=== PATIENT | male | born 1935 | race Caucasian/White ===

== ENCOUNTER 2018-09-26 15:42 | Inpatient (IN) | payer BC, MEDICARE ==
[~2018-09-26] VITALS: Ht 170.2 cm; Wt 54.9 kg
[2018-09-26] VITALS (7 sets, daily range): BP systolic 92–170; BP diastolic 62–80
[2018-09-26 16:44] LABS: BASO % 0 % (0-3); EOS % 0 % (0-3); HEMATOCRIT 44.5 % (39.0-53.0); HEMOGLOBIN 14.1 g/dL (13.0-17.5); LYMPH # 1.3 x10^3/uL (1.0-4.8); LYMPH % 13 % (24-48); MEAN CORPUSCULAR HEMOGLOBIN 29 pg (25-35); MEAN CORPUSCULAR HGB CONC 32 g/dL (31-37); MEAN CORPUSCULAR VOLUME 90 fL (79-100); MONO # 0.7 x10^3/uL (0.0-1.1); MONO % 7 % (0-9); NEUT # 8.3 x10^3uL (1.8-7.7); NEUT % 80 % (31-73); PLATELET COUNT 316 x10^3/uL (140-400); RED BLOOD COUNT 4.95 x10^6/uL (4.30-5.70); RED CELL DISTRIBUTION WIDTH 15.4 % (11.5-14.5); WHITE BLOOD COUNT 10.3 x10^3/uL (4.0-11.0)
[2018-09-26 16:47] LABS: BASE EXCESS ABG -5 mmol/L (-3-3); HCO3 ABG 19 mmol/L (21-28); PCO2 ABG 32 mmHg (35-46); PO2 ABG 149 mmHg (65-108); SAT O2 ABG 98 % (92-99)
[2018-09-26 16:50] LABS: FIO2 ABG 28
[2018-09-26 16:56] LABS: PROTHROMBIN TIME PATIENT 14.6 SEC (11.7-14.0)
[2018-09-26] MEDS ORDERED: IV NORMAL SALINE 1000ML BAG 1,000 ML IV ONE (17:00)
[2018-09-26] MEDS ORDERED: IV NORMAL SALINE 1000ML BAG 1,000 ML IV SCH (17:00)
--- NOTE | 2018-09-26 17:09 | RAD ---
AP chest. HISTORY: Altered level consciousness AP view was taken of the chest. There is a mass in the lateral right lung. Emergency room physician was called and notified of findings. Heart is normal in size. There is no pleural effusion. Mediastinum is not widened. IMPRESSION: 1. Right lung mass. FOR INTERNAL CODING PURPOSES Critical result: RESULT CODE: (C) Electronically signed by: Ty Ochoa MD (09/26/2018 5:06 PM) [id number]
[2018-09-26 17:10] LABS: ALBUMIN 3.7 g/dL (3.4-5.0); ALBUMIN/GLOBULIN RATIO 0.9 (1.0-1.7); CALCIUM 11.2 mg/dL (8.5-10.1); CREATININE 4.2 mg/dL (0.7-1.3); GFR 13.6; POTASSIUM 5.6 mmol/L (3.5-5.1); TOTAL BILIRUBIN 0.8 mg/dL (0.2-1.0); TOTAL PROTEIN 7.7 g/dL (6.4-8.2)
[2018-09-26 17:17] LABS: BILIRUBIN,URINE NEGATIVE (NEG); CLARITY,URINE TURBID; COLOR,URINE YELLOW; NITRITE,URINE NEGATIVE (NEG); PH,URINE 5.5; PROTEIN,URINE 100 mg/dL (NEG-TRACE); UROBILINOGEN,URINE 0.2 mg/dL (0.2 mg/dL)
[2018-09-26 17:24] LABS: WBC,URINE TNTC /HPF (0-4)
[2018-09-26 17:25] LABS: BACTERIA,URINE MANY /HPF (0-FEW)
[2018-09-26] MEDS ORDERED: INSULIN REGULAR 100 UNIT/ML 3ML VIAL. IV ONE (17:30)
[2018-09-26] MEDS ORDERED: INSULIN,REGULAR 150 UNIT DRIP 150 ML IV ONE (17:30)
--- NOTE | 2018-09-26 17:37 | PHYS DOC ---
Past Medical History Past Medical History: Dementia, Diabetes-Type II, Hypertension Adult General Chief Complaint Chief Complaint: weakness HPI HPI Patient is a 83 year old male patient with history of dementia brought in by family member because of generalized weakness. Patient has dementia and lives with his daughter but for the last 3 days he was with his son and did not eat and ambulated like his usual and was more confused. Patient was not able, and had muffled voice. Patient's son states he didn't eat or drink anything and he forced him to drink liquid. Patient has a very dry mouth and unable to tell his name because of severe dehydration. Review of Systems Review of Systems unable to obtain because of medical condition Physical Exam Physical Exam Constitutional: Moderate distress, cachectic, very dry, unable to talk. HENT: Normocephalic, atraumatic, oropharynx dry, oral breathing, no oral exudates, nose normal. [] Eyes: PERRLA, EOMI, conjunctiva normal, no discharge. [] Neck: Normal range of motion, no tenderness, supple, no stridor. [] Cardiovascular: Tachycardia, no murmur [] Lungs & Thorax: Bilateral breath sounds clear to auscultation [] Abdomen: Bowel sounds normal, soft, no tenderness, no masses, no pulsatile masses. [] Skin: Warm, dry, no erythema, no rash. [] Back: No tenderness, no CVA tenderness. [] Extremities: No tenderness, no cyanosis, no clubbing, ROM intact, no edema. [] Neurologic: Awake, unable to talk, moves all of his extremities Psychologic: unable to obtain Current Patient Data Vital Signs Vital Signs Date Time Temp Pulse Resp B/P (MAP) Pulse Ox O2 Delivery O2 Flow Rate FiO2 09/26/18 16:25 126 24 79/51 (60) Nasal Cannula 3.0 09/26/18 16:01 97.8 89 97.8 Lab Values Laboratory Tests Test 09/26/18 16:15 White Blood Count 10.3 x10^3/uL (4.0-11.0) Red Blood Count 4.95 x10^6/uL (4.30-5.70) Hemoglobin 14.1 g/dL (13.0-17.5) Hematocrit 44.5 % (39.0-53.0) Mean Corpuscular Volume 90 fL (79-100) Mean Corpuscular Hemoglobin 29 pg (25-35) Mean Corpuscular Hemoglobin Concent 32 g/dL (31-37) Red Cell Distribution Width 15.4 % (11.5-14.5) H Platelet Count 316 x10^3/uL (140-400) Neutrophils (%) (Auto) 80 % (31-73) H Lymphocytes (%) (Auto) 13 % (24-48) L Monocytes (%) (Auto) 7 % (0-9) Eosinophils (%) (Auto) 0 % (0-3) Basophils (%) (Auto) 0 % (0-3) Neutrophils # (Auto) 8.3 x10^3uL (1.8-7.7) H Lymphocytes # (Auto) 1.3 x10^3/uL (1.0-4.8) Monocytes # (Auto) 0.7 x10^3/uL (0.0-1.1) Eosinophils # (Auto) 0.0 x10^3/uL (0.0-0.7) Basophils # (Auto) 0.0 x10^3/uL (0.0-0.2) Prothrombin Time 14.6 SEC (11.7-14.0) H Prothrombin Time INR 1.2 (0.8-1.1) H Sodium Level 144 mmol/L (136-145) Potassium Level 5.6 mmol/L (3.5-5.1) H Chloride Level 101 mmol/L (98-107) Carbon Dioxide Level 20 mmol/L (21-32) L Anion Gap 23 (6-14) H Blood Urea Nitrogen 80 mg/dL (8-26) H Creatinine 4.2 mg/dL (0.7-1.3) H Estimated GFR (Cockcroft-Gault) 13.6 BUN/Creatinine Ratio 19 (6-20) Glucose Level 1010 mg/dL (70-99) *H Lactic Acid Level 6.8 mmol/L (0.4-2.0) *H Calcium Level 11.2 mg/dL (8.5-10.1) H Magnesium Level 3.0 mg/dL (1.8-2.4) H Total Bilirubin 0.8 mg/dL (0.2-1.0) Aspartate Amino Transferase (AST) 9 U/L (15-37) L Alanine Aminotransferase (ALT) 18 U/L (16-63) Alkaline Phosphatase 90 U/L (46-116) Total Protein 7.7 g/dL (6.4-8.2) Albumin 3.7 g/dL (3.4-5.0) Albumin/Globulin Ratio 0.9 (1.0-1.7) L Laboratory Tests 09/26/18 16:15 Laboratory Tests 09/26/18 16:15 EKG EKG EKG interpreted by me. EKG at 1608 showed sinus tachycardia at rate of 132, abnormal (perioral axis deviation, left anterior fascicular block, incomplete right bundle-branch block, LVH, no acute ST and T-wave abnormalities. Radiology/Procedures Radiology/Procedures [][facility] [address] [place] [address] IMAGING REPORT Signed PATIENT: CAROLINA GUILLERMO ACCOUNT: [id number] : 1935 LOCATION: SOUTH AGE: 83 SEX: M EXAM STATUS: ADM IN ORD. PHYSICIAN: AMALIA SHETH MD REASON: generalized weakness, altered level of consciousness PROCEDURE: PORTABLE CHEST 1V AP chest. HISTORY: Altered level consciousness AP view was taken of the chest. There is a mass in the lateral right lung. Emergency room physician was called and notified of findings. Heart is normal in size. There is no pleural effusion. Mediastinum is not widened. IMPRESSION: 1. Right lung mass. FOR INTERNAL CODING PURPOSES Critical result: RESULT CODE: (C) Electronically signed by: Ty Ochoa MD (09/26/2018 5:06 PM) [id number] DICTATED and SIGNED BY: TY COHOA MD DATE: 09/26/181705 Course & Med Decision Making Course & Med Decision Making Pertinent Labs and Imaging studies reviewed. (See chart for details) Evaluation of of patient in ER showed 82-year-old male patient brought in by family members because of generalized weakness and confusion. Patient had tachycardia and hypertension at arrival to ER and treated with IV fluid with increase of blood pressure to more than 100 and decrease of tachycardia of 120s. Patient had high blood sugar and later on reported blood sugar of more than 1000 insulin bolus and drip was ordered. Patient had elevation of BUN/creatinine. Chest x-ray showed large mass with possible metastasis. Patient treated with IV fluid, insulin, antibiotic and was admitted to ICU. Dr. Coley accepted admission at 1643. Dragon Disclaimer Dragon Disclaimer This electronic medical record was generated, in whole or in part, using a voice recognition dictation system. Departure Departure Impression: Primary Impression: Severe sepsis Additional Impressions: Hyperosmolar hyperglycemic coma due to diabetes mellitus without ketoacidosis Lung mass Urinary tract infection Acute renal failure Severe dehydration DKA (diabetic ketoacidoses) Disposition: ADMITTED INPATIENT Admitting Physician: DAVIAN ( Accepted Admission at 1643) Condition: GUARDED Referrals: ANA LILIA HE MD (PCP) Critical Care Time Critical care time was 75 minutes exclusive of procedures. Date and Time of Reassessment Date: Sep 26, 2018 Time: 17:49 Fluid Challenge Is the fluid challenge complet: Yes IBW Target Volume Used: No BMI > 30: No Vital Signs Vital Signs: Vital Signs Date Time Temp Pulse Resp B/P (MAP) Pulse Ox O2 Delivery O2 Flow Rate FiO2 09/26/18 16:25 126 24 79/51 (60) Nasal Cannula 3.0 09/26/18 16:01 97.8 89 97.8 Temperature Source: Axillary Respirations Respiratory Effort: Normal Respiratory Pattern: Normal Cardiovascular Pulse Rhythm: Regular Heart: S1 and S2 normal Lung Sounds Breath Sounds: Clear Capillary Refil Capillary Refill: Rt Hand > 3 seconds Peripheral Pulse Pulse Location: Radial Pulse Strength: Weak (1+) Pulse Assessment Method: Monitor Integumentary Skin: Dry Skin Moisture: Dry Problem Qualifiers Additional Impressions: Urinary tract infection Urinary tract infection type: site unspecified Hematuria presence: without hematuria Qualified Codes: N39.0 - Urinary tract infection, site not specified Acute renal failure Acute renal failure type: unspecified Qualified Codes: N17.9 - Acute kidney failure, unspecified DKA (diabetic ketoacidoses) Diabetes mellitus type: other specified (including ALEX) Diabetes mellitus complication detail: without coma Qualified Codes: E13.10 - Other specified diabetes mellitus with ketoacidosis without coma AMALIA SHETH MD Sep 26, 2018 17:37
[2018-09-26] MEDS ORDERED: VANCOMYCIN 1GM IVPB FOR OMNI 250 ML IV ONE (17:45)
[2018-09-26] MEDS ORDERED: PIPERACILLIN/TAZOBACTAM 3.375 GM in IV NORMAL SALINE 50ML 50 ML IV ONE (17:45)
--- NOTE | 2018-09-26 17:51 | PDOC1 ---
History and Physical Date of Admission: Date of Admission DATE: 09/26/18 TIME: 17:46 Chief Complaint: Problems: (1) Urinary tract infection (2) Acute renal failure (3) DKA (diabetic ketoacidoses) (4) Lung mass (5) Severe sepsis (6) Severe dehydration (7) Hyperosmolar hyperglycemic coma due to diabetes mellitus without ketoacidosis Chief Complain: Weakness weight loss mental status change History of Present Illness: HPI: This is a pleasantly confused elderly male who has dementia It has a geographic analyst and she states he been losing weight Now he developed mental status change they brought him to the ER for evaluation While here in the ER as noted to have a glucose greater than thousand his creatinines almost 5, he's got a right lung masses never been diagnosed before, and he has urosepsis I discussed the case with ER physician were going to with patient consult oncology nephrology and pulmonary medicine Patient is being examined in room 3 in the ER he is going to the ICU on DKA protocol Past Medical/Surgical History: PMH/PSH: Dementia diabetes Allergies: Allergies: Coded Allergies: No Known Drug Allergies (Unverified , 09/26/18) Family History: Family History: Diabetes Social History: Social Hisoty: He doesn't drink smoke or take drugs and sees he quit smoking 25 years ago he lives at home with his geographic analyst he is retired Current Medications: Current Medications Current Medications Sodium Chloride 1,000 ml @ 1,000 mls/hr Q1H IV Last administered on 09/26/18at 16:21; Start 09/26/18 at 17:00; Stop 09/26/18 at 17:59 Sodium Chloride 1,000 ml @ 1,000 mls/hr 1X ONCE IV ; Start 09/26/18 at 17:00; Stop 09/26/18 at 17:59 Insulin Human Regular (HumuLIN R VIAL) 10 unit 1X ONCE IV ; Start 09/26/18 at 17:30; Stop 09/26/18 at 17:31; Status DC Insulin Human Regular 150 ml @ 0 mls/hr 1X ONCE IV ; Start 09/26/18 at 17:30; Stop 09/26/18 at 17:31; Status DC Piperacillin Sod/ Tazobactam Sod 3.375 gm/Sodium Chloride 50 ml @ 100 mls/hr Q6HRS IV ; Start 09/26/18 at 18:00; Status UNV Vancomycin HCl 250 ml @ 250 mls/hr 1X ONCE IV ; Start 09/26/18 at 17:45; Stop 09/26/18 at 18:44; Status UNV Piperacillin Sod/ Tazobactam Sod 3.375 gm/Sodium Chloride 50 ml @ 100 mls/hr ONCE ONCE IV ; Start 09/26/18 at 17:45; Stop 09/26/18 at 18:14 Vancomycin HCl 1.5 gm/Sodium Chloride 500 ml @ 250 mls/hr 1X ONCE IV ; Start 09/26/18 at 18:15; Stop 09/26/18 at 20:14 ROS: Review of Systems Unable to obtain the patient is too confused his geographic analyst does say he's been losing weight Physical Exam: Vital Signs: Vital Signs Date Time Temp Pulse Resp B/P (MAP) Pulse Ox O2 Delivery O2 Flow Rate FiO2 09/26/18 16:25 126 24 79/51 (60) Nasal Cannula 3.0 09/26/18 16:01 97.8 89 97.8 Physcial Exam: GEN.: No apparent distress. Pleasantly confused HEENT: Head is normocephalic, atraumatic NECK: Supple, no JVD LUNGS: Clear to auscultation without rhonchi or wheezing HEART: RRR, S1, S2 present. Peripheral pulses intact ABDOMEN: Soft, nontender. Positive bowel sounds no organomegaly EXTREMITIES: Without any cyanosis, clubbing, or edema. Pedal pulses intact NEUROLOGIC: Normal speech, normal tone. A&O x 3 PSYCHIATRIC: Normal affect, normal mood. Stable SKIN: No ulcerations or rashes VASCULAR: Good capillary refill Labs: Labs: Laboratory Tests Test 09/26/18 16:15 09/26/18 16:40 09/26/18 17:00 09/26/18 17:10 White Blood Count 10.3 x10^3/uL (4.0-11.0) Red Blood Count 4.95 x10^6/uL (4.30-5.70) Hemoglobin 14.1 g/dL (13.0-17.5) Hematocrit 44.5 % (39.0-53.0) Mean Corpuscular Volume 90 fL (79-100) Mean Corpuscular Hemoglobin 29 pg (25-35) Mean Corpuscular Hemoglobin Concent 32 g/dL (31-37) Red Cell Distribution Width 15.4 % (11.5-14.5) Platelet Count 316 x10^3/uL (140-400) Neutrophils (%) (Auto) 80 % (31-73) Lymphocytes (%) (Auto) 13 % (24-48) Monocytes (%) (Auto) 7 % (0-9) Eosinophils (%) (Auto) 0 % (0-3) Basophils (%) (Auto) 0 % (0-3) Neutrophils # (Auto) 8.3 x10^3uL (1.8-7.7) Lymphocytes # (Auto) 1.3 x10^3/uL (1.0-4.8) Monocytes # (Auto) 0.7 x10^3/uL (0.0-1.1) Eosinophils # (Auto) 0.0 x10^3/uL (0.0-0.7) Basophils # (Auto) 0.0 x10^3/uL (0.0-0.2) Prothrombin Time 14.6 SEC (11.7-14.0) Prothromb Time International Ratio 1.2 (0.8-1.1) Sodium Level 144 mmol/L (136-145) Potassium Level 5.6 mmol/L (3.5-5.1) Chloride Level 101 mmol/L (98-107) Carbon Dioxide Level 20 mmol/L (21-32) Anion Gap 23 (6-14) Blood Urea Nitrogen 80 mg/dL (8-26) Creatinine 4.2 mg/dL (0.7-1.3) Estimated GFR (Cockcroft-Gault) 13.6 BUN/Creatinine Ratio 19 (6-20) Glucose Level 1010 mg/dL (70-99) Lactic Acid Level 6.8 mmol/L (0.4-2.0) Calcium Level 11.2 mg/dL (8.5-10.1) Magnesium Level 3.0 mg/dL (1.8-2.4) Total Bilirubin 0.8 mg/dL (0.2-1.0) Aspartate Amino Transf (AST/SGOT) 9 U/L (15-37) Alanine Aminotransferase (ALT/SGPT) 18 U/L (16-63) Alkaline Phosphatase 90 U/L (46-116) Total Protein 7.7 g/dL (6.4-8.2) Albumin 3.7 g/dL (3.4-5.0) Albumin/Globulin Ratio 0.9 (1.0-1.7) O2 Saturation 98 % (92-99) Arterial Blood pH 7.38 (7.35-7.45) Arterial Blood pCO2 at Patient Temp 32 mmHg (35-46) Arterial Blood pO2 at Patient Temp 149 mmHg (65-108) Arterial Blood HCO3 19 mmol/L (21-28) Arterial Blood Base Excess -5 mmol/L (-3-3) FiO2 28 Ammonia < 10 mcmol/L (11-34) Urine Collection Type Unknown Urine Color Yellow Urine Clarity Turbid Urine pH 5.5 Urine Specific [place] 1.020 Urine Protein 100 mg/dL (NEG-TRACE) Urine Glucose (UA) >=1000 mg/dL (NEG) Urine Ketones (Stick) Trace mg/dL (NEG) Urine Blood Large (NEG) Urine Nitrite Negative (NEG) Urine Bilirubin Negative (NEG) Urine Urobilinogen Dipstick 0.2 mg/dL (0.2 mg/dL) Urine Leukocyte Esterase Large (NEG) Urine RBC 11-20 /HPF (0-2) Urine WBC Tntc /HPF (0-4) Urine Squamous Epithelial Cells None /LPF Urine Bacteria Many /HPF (0-FEW) Laboratory Tests Test 09/26/18 16:15 09/26/18 16:40 09/26/18 17:00 09/26/18 17:10 White Blood Count 10.3 x10^3/uL (4.0-11.0) Red Blood Count 4.95 x10^6/uL (4.30-5.70) Hemoglobin 14.1 g/dL (13.0-17.5) Hematocrit 44.5 % (39.0-53.0) Mean Corpuscular Volume 90 fL (79-100) Mean Corpuscular Hemoglobin 29 pg (25-35) Mean Corpuscular Hemoglobin Concent 32 g/dL (31-37) Red Cell Distribution Width 15.4 % (11.5-14.5) Platelet Count 316 x10^3/uL (140-400) Neutrophils (%) (Auto) 80 % (31-73) Lymphocytes (%) (Auto) 13 % (24-48) Monocytes (%) (Auto) 7 % (0-9) Eosinophils (%) (Auto) 0 % (0-3) Basophils (%) (Auto) 0 % (0-3) Neutrophils # (Auto) 8.3 x10^3uL (1.8-7.7) Lymphocytes # (Auto) 1.3 x10^3/uL (1.0-4.8) Monocytes # (Auto) 0.7 x10^3/uL (0.0-1.1) Eosinophils # (Auto) 0.0 x10^3/uL (0.0-0.7) Basophils # (Auto) 0.0 x10^3/uL (0.0-0.2) Prothrombin Time 14.6 SEC (11.7-14.0) Prothromb Time International Ratio 1.2 (0.8-1.1) Sodium Level 144 mmol/L (136-145) Potassium Level 5.6 mmol/L (3.5-5.1) Chloride Level 101 mmol/L (98-107) Carbon Dioxide Level 20 mmol/L (21-32) Anion Gap 23 (6-14) Blood Urea Nitrogen 80 mg/dL (8-26) Creatinine 4.2 mg/dL (0.7-1.3) Estimated GFR (Cockcroft-Gault) 13.6 BUN/Creatinine Ratio 19 (6-20) Glucose Level 1010 mg/dL (70-99) Lactic Acid Level 6.8 mmol/L (0.4-2.0) Calcium Level 11.2 mg/dL (8.5-10.1) Magnesium Level 3.0 mg/dL (1.8-2.4) Total Bilirubin 0.8 mg/dL (0.2-1.0) Aspartate Amino Transf (AST/SGOT) 9 U/L (15-37) Alanine Aminotransferase (ALT/SGPT) 18 U/L (16-63) Alkaline Phosphatase 90 U/L (46-116) Total Protein 7.7 g/dL (6.4-8.2) Albumin 3.7 g/dL (3.4-5.0) Albumin/Globulin Ratio 0.9 (1.0-1.7) O2 Saturation 98 % (92-99) Arterial Blood pH 7.38 (7.35-7.45) Arterial Blood pCO2 at Patient Temp 32 mmHg (35-46) Arterial Blood pO2 at Patient Temp 149 mmHg (65-108) Arterial Blood HCO3 19 mmol/L (21-28) Arterial Blood Base Excess -5 mmol/L (-3-3) FiO2 28 Ammonia < 10 mcmol/L (11-34) Urine Collection Type Unknown Urine Color Yellow Urine Clarity Turbid Urine pH 5.5 Urine Specific [place] 1.020 Urine Protein 100 mg/dL (NEG-TRACE) Urine Glucose (UA) >=1000 mg/dL (NEG) Urine Ketones (Stick) Trace mg/dL (NEG) Urine Blood Large (NEG) Urine Nitrite Negative (NEG) Urine Bilirubin Negative (NEG) Urine Urobilinogen Dipstick 0.2 mg/dL (0.2 mg/dL) Urine Leukocyte Esterase Large (NEG) Urine RBC 11-20 /HPF (0-2) Urine WBC Tntc /HPF (0-4) Urine Squamous Epithelial Cells None /LPF Urine Bacteria Many /HPF (0-FEW) Images: Images I reviewed the chest x-ray in the department of radiology indeed there is a right lung mass I also wanted to go through the CAT scan of the brain, I did not see any obvious metastases but will await further official report Assessment/Plan Assessment/Plan Severe hyperglycemia lactic acidosis Urinary tract infection with sepsis Weight loss with a right lung mass Renal failure Critical hypotension Plan DKA protocol IV fluids IV insulin Consult nephrology Consult pulmonary medicine Consult hematology Consult infectious disease IV antibiotics Home meds if possible Frequent labs This is a critically ill patient I spent greater than 30 minutes educating the family and reviewing the chart with them Total time 32 minutes BRENT VILLALOBOS III, DO Sep 26, 2018 17:51
--- NOTE | 2018-09-26 17:52 | RAD ---
CT brain without contrast HISTORY: Altered level of consciousness CT scan of brain was done without contrast. There is diffuse atrophy. There is no mass or shift of the midline. An acute CVA is not identified. Ventricles are dilated probably related to atrophy. Sinuses are clear. MRI of the brain could be of benefit for further evaluation. IMPRESSION: 1. Atrophy. 2. No intracranial hemorrhage or mass identified on noncontrast imaging. PQRS Compliance Statement: One or more of the following individualized dose reduction techniques were utilized for this examination: 1. Automated exposure control 2. Adjustment of the mA and/or kV according to patient size 3. Use of iterative reconstruction technique Electronically signed by: Ty Ochoa MD (09/26/2018 5:49 PM) [facility]
[2018-09-26] MEDS ORDERED: PIPERACILLIN/TAZOBACTAM 3.375 GM in IV NORMAL SALINE 50ML 50 ML IV SCH (18:00)
[2018-09-26] MEDS ORDERED: VANCOMYCIN 1.5 GM in IV NORMAL SALINE 500ML BAG 500 ML IV ONE (18:15)
[2018-09-26] MEDS: IV NORMAL SALINE 1000ML BAG 1,000 ML IV SCH ×2 (18:59→22:07)
[2018-09-26] MEDS ORDERED: IV 1/2 NORMAL SALINE 1,000 ML IV SCH (21:15)
[2018-09-26] MEDS ORDERED: POTASSIUM CHLORIDE 10MEQ 100 ML IV PRN ×3 (21:15)
[2018-09-26] MEDS ORDERED: INSULIN REGULAR VIAL 150 UNIT in 0.9 % SODIUM CHLORIDE 150ML 150 ML IV PRN (21:15)
[2018-09-26 21:28] LABS: CALCIUM 10.4 mg/dL (8.5-10.1); CREATININE 3.5 mg/dL (0.7-1.3); GFR 16.8; MAGNESIUM 2.9 mg/dL (1.8-2.4); PHOSPHORUS 3.7 mg/dL (2.6-4.7); POTASSIUM 3.9 mmol/L (3.5-5.1)
[2018-09-26 21:44] LABS: ALBUMIN 3.3 g/dL (3.4-5.0); DIRECT BILIRUBIN 0.2 mg/dL (0.0-0.2); TOTAL BILIRUBIN 0.5 mg/dL (0.2-1.0)
--- NOTE | 2018-09-26 22:00 | NUR ---
PATIENT IS ADMITTED TO ROOM 110 FROM THE ED. REPORT RECEIVED FROM ALDEN TUCKER. DKA PROTOCOL IN PLACE. INSULIN INFUSING, VANCO AND ZOSYN GIVEN, BLOOD CULTURES X2. SECOND LACTIC ACID PENDING.. 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 PATIENT AWAKE AND ANSWERS QUESTIONS APPROPROPRIATELY. POOR HISTORIAN DENIES PAIN OR SOA. SON AND DAUGHTER AT BEDSIDE. VSS STABLE. WILL CONTINUE TO MONITOR.
[2018-09-27] VITALS (14 sets, daily range): BP systolic 99–130; BP diastolic 46–90
[2018-09-27] MEDS ORDERED: DEXTROSE 50% 25 GM / 50ML DISP.SYRIN. IV PRN ×3 (02:30→09:15)
[2018-09-27 03:03] LABS: CALCIUM 9.6 mg/dL (8.5-10.1); CREATININE 2.6 mg/dL (0.7-1.3); GFR 23.7; POTASSIUM 3.5 mmol/L (3.5-5.1)
[2018-09-27 03:07] LABS: MAGNESIUM 2.3 mg/dL (1.8-2.4); PHOSPHORUS 2.3 mg/dL (2.6-4.7)
[2018-09-27] MEDS ORDERED: IV 1/2 NORMAL SALINE 1,000 ML IV ONE (04:15)
[2018-09-27] MEDS: PIPERACILLIN/TAZOBACTAM 2.25 GM in IV NORMAL SALINE 50ML 50 ML IV SCH ×3 (06:21→21:09)
[2018-09-27] MEDS: IV NORMAL SALINE 1000ML BAG 1,000 ML IV SCH ×2 (06:29→13:44)
--- NOTE | 2018-09-27 07:21 | PDOC ---
Provider Note Provider Note ID consult dictated [id number] Thank you MATEO RUVALCABA MD Sep 27, 2018 07:21
[2018-09-27] MEDS ORDERED: LISI-130 PO (07:36)
--- NOTE | 2018-09-27 07:43 | CONS ---
DATE OF CONSULTATION: 09/27/2018 REFERRING PHYSICIAN: Dr. Coley. REASON FOR CONSULTATION: UTI. HISTORY OF PRESENT ILLNESS: An 83-year-old male with history of dementia, was brought in by his daughter and family because of generalized weakness. The patient lives with his daughter, but over the past 3 days. his p.o. intake had been poor and he appeared more confused than his baseline. The patient did not have any fevers or chills. He had a dry mouth. He was tachycardic. He was hypoxic, requiring 3 liters of O2 by nasal cannula. White count was normal at 10.3. Glucose was 1000, lactate of 6.8, bicarbonate of 20. UA showed pyuria. He was admitted to ICU for DKA management. He received a dose of vancomycin followed by Zosyn, which he is currently on. He has a Yun placed, this morning the patient is pleasant. Denies any complaints. Denies any nausea, vomiting, diarrhea, abdominal pain, fevers, chills, smiling. PAST MEDICAL HISTORY: Diabetes, dementia. ALLERGIES: No known drug allergies. FAMILY HISTORY: As per HPI. SOCIAL HISTORY: Denies smoking, ETOH, or illicit drug use. He lives at home with his medicaid specialist. MEDICATIONS: Zosyn, status post one dose of vancomycin. Other medications in medication list. PHYSICAL EXAMINATION: VITAL SIGNS: Temperature 98.7, pulse 104, respiratory rate 28, blood pressure 114/65, oxygen saturation 99% on room air. GENERAL: Alert, awake, smiling male in no acute distress, lying comfortably in bed, pleasantly confused. HEENT: Normocephalic, atraumatic, anicteric. No thrush. Oral mucosa moist. NECK: Supple. JVD. LUNGS: Clear bilaterally. No wheezing. HEART: S1, S2 with no gallops or murmurs. ABDOMEN: Soft, nontender, nondistended. GENITOURINARY: Yun in place. NEUROLOGIC: Alert, awake, pleasantly confused baseline per daughter at bedside. PSYCHIATRIC: Normal affect. DERMATOLOGIC: Warm, dry. No generalized rash. LABORATORY DATA: WBC 10.3, hemoglobin 14.1, hematocrit 44.5, platelets 316. Sodium 159, potassium 3.5, chloride 123, bicarbonate 24, BUN 62, creatinine 2.6, has come down, glucose 139 was 1000. Lactate 5.9. Lipase 522. IMAGING: CT head, atrophy, no acute intracranial hemorrhage. Chest x-ray, right lung mass. IMPRESSION: 1. Sepsis source Likely with Urinary tract infection. 2. Severe hyperglycemia. 3. Lactic acidosis, multifactorial. 4. Renal failure. 5. Weight loss with right lung mass. 6. Hyponatremia. 7. Metabolic acidosis, improving. RECOMMENDATIONS: 1. Continue empiric Zosyn, renal dosing. 2. Follow up urine culture and blood culture. 3. Continue supportive care. Discussed with daughter at bedside. Discussed with RN. Thank you for allowing me to participate in this patient's care. We will follow along with you. MATEO RUVALCABA MD DR: MERA/nts JOB#: [id number] / [id number] KIA
[2018-09-27] MEDS ORDERED: INSULIN LISPRO 300 UNITS/3 ML INSULN.PEN. SQ SCH (08:00)
--- NOTE | 2018-09-27 08:17 | EKG ---
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
[2018-09-27 08:56] LABS: CALCIUM 9.7 mg/dL (8.5-10.1); CREATININE 2.5 mg/dL (0.7-1.3); GFR 24.8; MAGNESIUM 2.5 mg/dL (1.8-2.4); POTASSIUM 3.9 mmol/L (3.5-5.1)
--- NOTE | 2018-09-27 09:33 | PDOC2 ---
CONSULT Date of Consult Date of Consult DATE: 09/27/18 TIME: 09:25 Reason for consultation: Lung mass Consult: Hematology oncology, Dr. Gabby Vital History of present illness: He is an 83-year-old man admitted with weakness, moderate, acute on chronic, associated with anorexia and tachycardia and hypoxia and dry mouth and confusion and mental status changes, history of dementia, admitted for elevated blood sugars and UTI and overall is quite a bit better with hydration and antibiotics, renal function has improved, and we were consulted due to a right lateral lung mass seen on chest x-ray. Past medical history: Lung mass Renal failure UTI Dementia Diabetes mellitus 2 Hypertension Past surgical history: He denies any prior surgeries for me today Allergies: No known drug allergies Medications: See attached list Social history: Lives with his daughter, quit tobacco about 25 years ago, no alcohol, no drugs Review of systems: Weight loss, anorexia, weakness, he denies any other of a 10 point review of systems today Physical exam: Vitals reviewed Gen.: thin elderly man in no acute distress HEENT: mucous membranes moist, head normocephalic atraumatic Neck: Supple, no lymphadenopathy Lymph nodes: No palpable lymphadenopathy neck or axilla Lungs: Breathing comfortably w/o respiratory distress Heart: Regular rate and rhythm Abdomen: Soft, nontender, nondistended Extremities: No cyanosis or signif edema Skin: No obvious rashes or skin breakdown Neuro: Alert and oriented but maybe a slight bit confused Psych: Normal mood and affect Lab reviewed: White count 10.3, hemoglobin 14.1, platelets 316 INR 1.2 Urinalysis with glucose, protein, ketones, blood, leukoesterase, white blood cells, red blood cells, bacteria Lipase 522 Hepatic without elevations Creatinine 4.2 down to 2.6 GFR of 23 today Glucose of 1010 down to 139 Rads reviewed: Chest x-ray lateral right lung mass CT head without atrophy with no acute finding Case discussed with: Patient and nurse, records reviewed in [facility] and [facility] including labs and radiology, please see note for summary details. Assessment and Plan: 83-year-old man admitted with weakness and anorexia with history of dementia, being treated for elevated blood sugars and UTI, with a lung mass seen on chest x-ray. UTI: ID has been consulted Renal insufficiency: Nephrology has been consulted Right lung mass: Pulmonary has been consulted, I do recommend CT scan, currently creatinine is elevated, if creatinine continues to improve can get CT scan with contrast, would check chest abdomen and pelvis due to concern for cancer, will likely order CT tomorrow based on creatinine, can do w/o con CT chest to begin with if need be Elevated blood sugars: Per primary Elevated lipase: Per primary Will follow. Thank you kindly for this consultation, and please don't hesitate to call with any further questions. Current Problem List Problem List Problems Medical Problems: (1) Acute renal failure Status: Acute (2) DKA (diabetic ketoacidoses) Status: Acute (3) Hyperosmolar hyperglycemic coma due to diabetes mellitus without ketoacidosis Status: Acute (4) Lung mass Status: Acute (5) Severe dehydration Status: Acute (6) Severe sepsis Status: Acute (7) Urinary tract infection Status: Acute Current Medications Current Medications Current Medications Sodium Chloride 1,000 ml @ 1,000 mls/hr Q1H IV Last administered on 09/26/18at 16:21; Start 09/26/18 at 17:00; Stop 09/26/18 at 17:59; Status DC Sodium Chloride 1,000 ml @ 1,000 mls/hr 1X ONCE IV Last administered on 09/26/18at 17:41; Start 09/26/18 at 17:00; Stop 09/26/18 at 17:59; Status DC Insulin Human Regular (HumuLIN R VIAL) 10 unit 1X ONCE IV Last administered on 09/26/18at 18:28; Start 09/26/18 at 17:30; Stop 09/26/18 at 17:31; Status DC Insulin Human Regular 150 ml @ 0 mls/hr 1X ONCE IV Last administered on 09/26/18at 18:31; Start 09/26/18 at 17:30; Stop 09/26/18 at 17:31; Status DC Piperacillin Sod/ Tazobactam Sod 3.375 gm/Sodium Chloride 50 ml @ 100 mls/hr Q6HRS IV ; Start 09/26/18 at 18:00; Status UNV Vancomycin HCl 250 ml @ 250 mls/hr 1X ONCE IV ; Start 09/26/18 at 17:45; Stop 09/26/18 at 18:44; Status UNV Piperacillin Sod/ Tazobactam Sod 3.375 gm/Sodium Chloride 50 ml @ 100 mls/hr ONCE ONCE IV Last administered on 09/26/18at 17:42; Start 09/26/18 at 17:45; Stop 09/26/18 at 18:14; Status DC Vancomycin HCl 1.5 gm/Sodium Chloride 500 ml @ 250 mls/hr 1X ONCE IV Last administered on 09/26/18at 18:49; Start 09/26/18 at 18:15; Stop 09/26/18 at 20:14; Status DC Sodium Chloride 1,000 ml @ 150 mls/hr Q6H40M IV Last administered on 09/26/18at 18:59; Start 09/26/18 at 17:44; Stop 09/27/18 at 17:43 Piperacillin Sod/ Tazobactam Sod 2.25 gm/Sodium Chloride 50 ml @ 100 mls/hr Q8HRS IV Last administered on 09/27/18at 06:21; Start 09/27/18 at 06:00 Sodium Chloride 1,000 ml @ 500 mls/hr Q2H IV Last administered on 09/26/18at 22:07; Start 09/26/18 at 21:15; Stop 09/26/18 at 21:40; Status DC Insulin Human Regular 150 unit/ Sodium Chloride 151.5 ml @ 0 mls/hr CONT PRN PRN IV PER PROTOCOL; Start 09/26/18 at 21:15 Potassium Chloride/Water 100 ml @ 100 mls/hr PRN Q1HR PRN IV SEE COMMENTS; Start 09/26/18 at 21:15 Potassium Chloride/Water 100 ml @ 100 mls/hr PRN Q1HR PRN IV SEE COMMENTS; Start 09/26/18 at 21:15 Potassium Chloride/Water 100 ml @ 100 mls/hr PRN Q1HR PRN IV SEE COMMENTS; Start 09/26/18 at 21:15 Dextrose (Dextrose 50%-Water Syringe) 25 gm CONT PRN PRN IV PER PROTOCOL Last administered on 09/27/18at 02:35; Start 09/27/18 at 02:30; Stop 09/27/18 at 05:32; Status DC Sodium Chloride 1,000 ml @ 125 mls/hr 1X ONCE IV Last administered on 09/27/18at 05:02; Start 09/27/18 at 04:15; Stop 09/27/18 at 12:14 Insulin Human Lispro (HumaLOG) 0-5 UNITS TIDWMEALS SQ Last administered on 09/27/18at 08:54; Start 09/27/18 at 08:00; Stop 09/27/18 at 09:14; Status DC Dextrose (Dextrose 50%-Water Syringe) 12.5 gm PRN Q15MIN PRN IV SEE COMMENTS; Start 09/27/18 at 05:30 Lactobacillus Rhamnosus (Culturelle) 1 cap BID PO ; Start 09/27/18 at 21:00 Insulin Human Lispro (HumaLOG) 0-9 UNITS TIDWMEALS SQ ; Start 09/27/18 at 12:00 Dextrose (Dextrose 50%-Water Syringe) 12.5 gm PRN Q15MIN PRN IV SEE COMMENTS; Start 09/27/18 at 09:15 Active Scripts Active Reported Lisinopril 40 Mg Tablet 1 Tab PO DAILY Allergies Allergies: Coded Allergies: No Known Drug Allergies (Unverified , 09/26/18) Vitals VITALS Vital Signs Date Time Temp Pulse Resp B/P (MAP) Pulse Ox O2 Delivery O2 Flow Rate FiO2 09/27/18 06:00 103 28 122/62 (82) 98 Room Air 09/27/18 04:00 98.7 98.7 09/26/18 18:30 3.0 Labs Labs Laboratory Tests Test 09/26/18 16:15 09/26/18 16:40 09/26/18 17:00 09/26/18 17:07 White Blood Count 10.3 x10^3/uL (4.0-11.0) Red Blood Count 4.95 x10^6/uL (4.30-5.70) Hemoglobin 14.1 g/dL (13.0-17.5) Hematocrit 44.5 % (39.0-53.0) Mean Corpuscular Volume 90 fL (79-100) Mean Corpuscular Hemoglobin 29 pg (25-35) Mean Corpuscular Hemoglobin Concent 32 g/dL (31-37) Red Cell Distribution Width 15.4 % (11.5-14.5) Platelet Count 316 x10^3/uL (140-400) Neutrophils (%) (Auto) 80 % (31-73) Lymphocytes (%) (Auto) 13 % (24-48) Monocytes (%) (Auto) 7 % (0-9) Eosinophils (%) (Auto) 0 % (0-3) Basophils (%) (Auto) 0 % (0-3) Neutrophils # (Auto) 8.3 x10^3uL (1.8-7.7) Lymphocytes # (Auto) 1.3 x10^3/uL (1.0-4.8) Monocytes # (Auto) 0.7 x10^3/uL (0.0-1.1) Eosinophils # (Auto) 0.0 x10^3/uL (0.0-0.7) Basophils # (Auto) 0.0 x10^3/uL (0.0-0.2) Prothrombin Time 14.6 SEC (11.7-14.0) Prothromb Time International Ratio 1.2 (0.8-1.1) Sodium Level 144 mmol/L (136-145) Potassium Level 5.6 mmol/L (3.5-5.1) Chloride Level 101 mmol/L (98-107) Carbon Dioxide Level 20 mmol/L (21-32) Anion Gap 23 (6-14) Blood Urea Nitrogen 80 mg/dL (8-26) Creatinine 4.2 mg/dL (0.7-1.3) Estimated GFR (Cockcroft-Gault) 13.6 BUN/Creatinine Ratio 19 (6-20) Glucose Level 1010 mg/dL (70-99) Lactic Acid Level 6.8 mmol/L (0.4-2.0) Calcium Level 11.2 mg/dL (8.5-10.1) Magnesium Level 3.0 mg/dL (1.8-2.4) Total Bilirubin 0.8 mg/dL (0.2-1.0) Aspartate Amino Transf (AST/SGOT) 9 U/L (15-37) Alanine Aminotransferase (ALT/SGPT) 18 U/L (16-63) Alkaline Phosphatase 90 U/L (46-116) Total Protein 7.7 g/dL (6.4-8.2) Albumin 3.7 g/dL (3.4-5.0) Albumin/Globulin Ratio 0.9 (1.0-1.7) O2 Saturation 98 % (92-99) Arterial Blood pH 7.38 (7.35-7.45) Arterial Blood pCO2 at Patient Temp 32 mmHg (35-46) Arterial Blood pO2 at Patient Temp 149 mmHg (65-108) Arterial Blood HCO3 19 mmol/L (21-28) Arterial Blood Base Excess -5 mmol/L (-3-3) FiO2 28 Ammonia < 10 mcmol/L (11-34) Bedside Troponin I 0.01 ng/ml (<0.08) Test 09/26/18 17:10 09/26/18 19:43 09/26/18 19:50 09/26/18 21:28 Urine Collection Type Unknown Urine Color Yellow Urine Clarity Turbid Urine pH 5.5 Urine Specific [place] 1.020 Urine Protein 100 mg/dL (NEG-TRACE) Urine Glucose (UA) >=1000 mg/dL (NEG) Urine Ketones (Stick) Trace mg/dL (NEG) Urine Blood Large (NEG) Urine Nitrite Negative (NEG) Urine Bilirubin Negative (NEG) Urine Urobilinogen Dipstick 0.2 mg/dL (0.2 mg/dL) Urine Leukocyte Esterase Large (NEG) Urine RBC 11-20 /HPF (0-2) Urine WBC Tntc /HPF (0-4) Urine Squamous Epithelial Cells None /LPF Urine Bacteria Many /HPF (0-FEW) Glucose (Fingerstick) 594 mg/dL (70-99) 354 mg/dL (70-99) Sodium Level 153 mmol/L (136-145) Potassium Level 3.9 mmol/L (3.5-5.1) Chloride Level 114 mmol/L (98-107) Carbon Dioxide Level 15 mmol/L (21-32) Anion Gap 24 (6-14) Blood Urea Nitrogen 77 mg/dL (8-26) Creatinine 3.5 mg/dL (0.7-1.3) Estimated GFR (Cockcroft-Gault) 16.8 Glucose Level 684 mg/dL (70-99) Lactic Acid Level 5.9 mmol/L (0.4-2.0) Calcium Level 10.4 mg/dL (8.5-10.1) Phosphorus Level 3.7 mg/dL (2.6-4.7) Magnesium Level 2.9 mg/dL (1.8-2.4) Total Bilirubin 0.5 mg/dL (0.2-1.0) Direct Bilirubin 0.2 mg/dL (0.0-0.2) Aspartate Amino Transf (AST/SGOT) 13 U/L (15-37) Alanine Aminotransferase (ALT/SGPT) 15 U/L (16-63) Alkaline Phosphatase 85 U/L (46-116) Total Protein 8.0 g/dL (6.4-8.2) Albumin 3.3 g/dL (3.4-5.0) Lipase 522 U/L (73-393) Test 09/26/18 22:38 09/27/18 02:35 09/27/18 08:30 Glucose (Fingerstick) 287 mg/dL (70-99) Sodium Level 159 mmol/L (136-145) 156 mmol/L (136-145) Potassium Level 3.5 mmol/L (3.5-5.1) 3.9 mmol/L (3.5-5.1) Chloride Level 123 mmol/L (98-107) 121 mmol/L (98-107) Carbon Dioxide Level 24 mmol/L (21-32) 20 mmol/L (21-32) Anion Gap 12 (6-14) 15 (6-14) Blood Urea Nitrogen 62 mg/dL (8-26) 59 mg/dL (8-26) Creatinine 2.6 mg/dL (0.7-1.3) 2.5 mg/dL (0.7-1.3) Estimated GFR (Cockcroft-Gault) 23.7 24.8 Glucose Level 139 mg/dL (70-99) 266 mg/dL (70-99) Calcium Level 9.6 mg/dL (8.5-10.1) 9.7 mg/dL (8.5-10.1) Phosphorus Level 2.3 mg/dL (2.6-4.7) 3.0 mg/dL (2.6-4.7) Magnesium Level 2.3 mg/dL (1.8-2.4) 2.5 mg/dL (1.8-2.4) Laboratory Tests Test 09/26/18 16:15 09/26/18 16:40 09/26/18 17:00 09/26/18 17:07 White Blood Count 10.3 x10^3/uL (4.0-11.0) Red Blood Count 4.95 x10^6/uL (4.30-5.70) Hemoglobin 14.1 g/dL (13.0-17.5) Hematocrit 44.5 % (39.0-53.0) Mean Corpuscular Volume 90 fL (79-100) Mean Corpuscular Hemoglobin 29 pg (25-35) Mean Corpuscular Hemoglobin Concent 32 g/dL (31-37) Red Cell Distribution Width 15.4 % (11.5-14.5) Platelet Count 316 x10^3/uL (140-400) Neutrophils (%) (Auto) 80 % (31-73) Lymphocytes (%) (Auto) 13 % (24-48) Monocytes (%) (Auto) 7 % (0-9) Eosinophils (%) (Auto) 0 % (0-3) Basophils (%) (Auto) 0 % (0-3) Neutrophils # (Auto) 8.3 x10^3uL (1.8-7.7) Lymphocytes # (Auto) 1.3 x10^3/uL (1.0-4.8) Monocytes # (Auto) 0.7 x10^3/uL (0.0-1.1) Eosinophils # (Auto) 0.0 x10^3/uL (0.0-0.7) Basophils # (Auto) 0.0 x10^3/uL (0.0-0.2) Prothrombin Time 14.6 SEC (11.7-14.0) Prothromb Time International Ratio 1.2 (0.8-1.1) Sodium Level 144 mmol/L (136-145) Potassium Level 5.6 mmol/L (3.5-5.1) Chloride Level 101 mmol/L (98-107) Carbon Dioxide Level 20 mmol/L (21-32) Anion Gap 23 (6-14) Blood Urea Nitrogen 80 mg/dL (8-26) Creatinine 4.2 mg/dL (0.7-1.3) Estimated GFR (Cockcroft-Gault) 13.6 BUN/Creatinine Ratio 19 (6-20) Glucose Level 1010 mg/dL (70-99) Lactic Acid Level 6.8 mmol/L (0.4-2.0) Calcium Level 11.2 mg/dL (8.5-10.1) Magnesium Level 3.0 mg/dL (1.8-2.4) Total Bilirubin 0.8 mg/dL (0.2-1.0) Aspartate Amino Transf (AST/SGOT) 9 U/L (15-37) Alanine Aminotransferase (ALT/SGPT) 18 U/L (16-63) Alkaline Phosphatase 90 U/L (46-116) Total Protein 7.7 g/dL (6.4-8.2) Albumin 3.7 g/dL (3.4-5.0) Albumin/Globulin Ratio 0.9 (1.0-1.7) O2 Saturation 98 % (92-99) Arterial Blood pH 7.38 (7.35-7.45) Arterial Blood pCO2 at Patient Temp 32 mmHg (35-46) Arterial Blood pO2 at Patient Temp 149 mmHg (65-108) Arterial Blood HCO3 19 mmol/L (21-28) Arterial Blood Base Excess -5 mmol/L (-3-3) FiO2 28 Ammonia < 10 mcmol/L (11-34) Bedside Troponin I 0.01 ng/ml (<0.08) Test 09/26/18 17:10 09/26/18 19:43 09/26/18 19:50 09/26/18 21:28 Urine Collection Type Unknown Urine Color Yellow Urine Clarity Turbid Urine pH 5.5 Urine Specific [place] 1.020 Urine Protein 100 mg/dL (NEG-TRACE) Urine Glucose (UA) >=1000 mg/dL (NEG) Urine Ketones (Stick) Trace mg/dL (NEG) Urine Blood Large (NEG) Urine Nitrite Negative (NEG) Urine Bilirubin Negative (NEG) Urine Urobilinogen Dipstick 0.2 mg/dL (0.2 mg/dL) Urine Leukocyte Esterase Large (NEG) Urine RBC 11-20 /HPF (0-2) Urine WBC Tntc /HPF (0-4) Urine Squamous Epithelial Cells None /LPF Urine Bacteria Many /HPF (0-FEW) Glucose (Fingerstick) 594 mg/dL (70-99) 354 mg/dL (70-99) Sodium Level 153 mmol/L (136-145) Potassium Level 3.9 mmol/L (3.5-5.1) Chloride Level 114 mmol/L (98-107) Carbon Dioxide Level 15 mmol/L (21-32) Anion Gap 24 (6-14) Blood Urea Nitrogen 77 mg/dL (8-26) Creatinine 3.5 mg/dL (0.7-1.3) Estimated GFR (Cockcroft-Gault) 16.8 Glucose Level 684 mg/dL (70-99) Lactic Acid Level 5.9 mmol/L (0.4-2.0) Calcium Level 10.4 mg/dL (8.5-10.1) Phosphorus Level 3.7 mg/dL (2.6-4.7) Magnesium Level 2.9 mg/dL (1.8-2.4) Total Bilirubin 0.5 mg/dL (0.2-1.0) Direct Bilirubin 0.2 mg/dL (0.0-0.2) Aspartate Amino Transf (AST/SGOT) 13 U/L (15-37) Alanine Aminotransferase (ALT/SGPT) 15 U/L (16-63) Alkaline Phosphatase 85 U/L (46-116) Total Protein 8.0 g/dL (6.4-8.2) Albumin 3.3 g/dL (3.4-5.0) Lipase 522 U/L (73-393) Test 09/26/18 22:38 09/27/18 02:35 09/27/18 08:30 Glucose (Fingerstick) 287 mg/dL (70-99) Sodium Level 159 mmol/L (136-145) 156 mmol/L (136-145) Potassium Level 3.5 mmol/L (3.5-5.1) 3.9 mmol/L (3.5-5.1) Chloride Level 123 mmol/L (98-107) 121 mmol/L (98-107) Carbon Dioxide Level 24 mmol/L (21-32) 20 mmol/L (21-32) Anion Gap 12 (6-14) 15 (6-14) Blood Urea Nitrogen 62 mg/dL (8-26) 59 mg/dL (8-26) Creatinine 2.6 mg/dL (0.7-1.3) 2.5 mg/dL (0.7-1.3) Estimated GFR (Cockcroft-Gault) 23.7 24.8 Glucose Level 139 mg/dL (70-99) 266 mg/dL (70-99) Calcium Level 9.6 mg/dL (8.5-10.1) 9.7 mg/dL (8.5-10.1) Phosphorus Level 2.3 mg/dL (2.6-4.7) 3.0 mg/dL (2.6-4.7) Magnesium Level 2.3 mg/dL (1.8-2.4) 2.5 mg/dL (1.8-2.4) GABBY VITAL MD Sep 27, 2018 09:33
--- NOTE | 2018-09-27 11:00 | PDOC2 ---
CONSULT Date of Consult Date of Consult DATE: 09/27/18 TIME: 10:49 Reason for Consult Reason for Consult: HANNA Identification/Chief Complaint Chief Complaint Baseline dementia, states feels fine Source Source: Chart review History of Present Illness Reason for Visit: Pt is 83-year-old male with history of dementia, was brought in by his daughter and family because of generalized weakness. The patient lives with his daughter, but over the past 3 days. his p.o. intake had been poor and he appeared more confused than his baseline. The patient did not have any fevers or chills. He had a dry mouth. He was tachycardic. He was hypoxic, requiring 3 liters of O2 by nasal cannula. UA showed pyuria. He was admitted to ICU for DKA management. He has a Yun placed Denies any complaints. Denies any nausea,vomiting, diarrhea, abdominal pain, fevers, chills, Current Problem List Problem List Problems Medical Problems: (1) Acute renal failure Status: Acute (2) DKA (diabetic ketoacidoses) Status: Acute (3) Hyperosmolar hyperglycemic coma due to diabetes mellitus without ketoacidosis Status: Acute (4) Lung mass Status: Acute (5) Severe dehydration Status: Acute (6) Severe sepsis Status: Acute (7) Urinary tract infection Status: Acute Current Medications Current Medications Current Medications Sodium Chloride 1,000 ml @ 1,000 mls/hr Q1H IV Last administered on 09/26/18at 16:21; Start 09/26/18 at 17:00; Stop 09/26/18 at 17:59; Status DC Sodium Chloride 1,000 ml @ 1,000 mls/hr 1X ONCE IV Last administered on 09/26/18at 17:41; Start 09/26/18 at 17:00; Stop 09/26/18 at 17:59; Status DC Insulin Human Regular (HumuLIN R VIAL) 10 unit 1X ONCE IV Last administered on 09/26/18at 18:28; Start 09/26/18 at 17:30; Stop 09/26/18 at 17:31; Status DC Insulin Human Regular 150 ml @ 0 mls/hr 1X ONCE IV Last administered on 09/26/18at 18:31; Start 09/26/18 at 17:30; Stop 09/26/18 at 17:31; Status DC Piperacillin Sod/ Tazobactam Sod 3.375 gm/Sodium Chloride 50 ml @ 100 mls/hr Q6HRS IV ; Start 09/26/18 at 18:00; Status UNV Vancomycin HCl 250 ml @ 250 mls/hr 1X ONCE IV ; Start 09/26/18 at 17:45; Stop 09/26/18 at 18:44; Status UNV Piperacillin Sod/ Tazobactam Sod 3.375 gm/Sodium Chloride 50 ml @ 100 mls/hr ONCE ONCE IV Last administered on 09/26/18at 17:42; Start 09/26/18 at 17:45; Stop 09/26/18 at 18:14; Status DC Vancomycin HCl 1.5 gm/Sodium Chloride 500 ml @ 250 mls/hr 1X ONCE IV Last administered on 09/26/18at 18:49; Start 09/26/18 at 18:15; Stop 09/26/18 at 20:14; Status DC Sodium Chloride 1,000 ml @ 150 mls/hr Q6H40M IV Last administered on 09/26/18at 18:59; Start 09/26/18 at 17:44; Stop 09/27/18 at 17:43 Piperacillin Sod/ Tazobactam Sod 2.25 gm/Sodium Chloride 50 ml @ 100 mls/hr Q8HRS IV Last administered on 09/27/18at 06:21; Start 09/27/18 at 06:00 Sodium Chloride 1,000 ml @ 500 mls/hr Q2H IV Last administered on 09/26/18at 22:07; Start 09/26/18 at 21:15; Stop 09/26/18 at 21:40; Status DC Insulin Human Regular 150 unit/ Sodium Chloride 151.5 ml @ 0 mls/hr CONT PRN PRN IV PER PROTOCOL; Start 09/26/18 at 21:15 Potassium Chloride/Water 100 ml @ 100 mls/hr PRN Q1HR PRN IV SEE COMMENTS; Start 09/26/18 at 21:15 Potassium Chloride/Water 100 ml @ 100 mls/hr PRN Q1HR PRN IV SEE COMMENTS; Start 09/26/18 at 21:15 Potassium Chloride/Water 100 ml @ 100 mls/hr PRN Q1HR PRN IV SEE COMMENTS; Start 09/26/18 at 21:15 Dextrose (Dextrose 50%-Water Syringe) 25 gm CONT PRN PRN IV PER PROTOCOL Last administered on 09/27/18at 02:35; Start 09/27/18 at 02:30; Stop 09/27/18 at 05:32; Status DC Sodium Chloride 1,000 ml @ 125 mls/hr 1X ONCE IV Last administered on 09/27/18at 05:02; Start 09/27/18 at 04:15; Stop 09/27/18 at 12:14 Insulin Human Lispro (HumaLOG) 0-5 UNITS TIDWMEALS SQ Last administered on 09/27/18at 08:54; Start 09/27/18 at 08:00; Stop 09/27/18 at 09:14; Status DC Dextrose (Dextrose 50%-Water Syringe) 12.5 gm PRN Q15MIN PRN IV SEE COMMENTS; Start 09/27/18 at 05:30; Stop 09/27/18 at 09:26; Status DC Lactobacillus Rhamnosus (Culturelle) 1 cap BID PO ; Start 09/27/18 at 21:00 Insulin Human Lispro (HumaLOG) 0-9 UNITS TIDWMEALS SQ ; Start 09/27/18 at 12:00 Dextrose (Dextrose 50%-Water Syringe) 12.5 gm PRN Q15MIN PRN IV SEE COMMENTS; Start 09/27/18 at 09:15 Active Scripts Active Reported Lisinopril 40 Mg Tablet 1 Tab PO DAILY Allergies Allergies: Coded Allergies: No Known Drug Allergies (Unverified , 09/26/18) ROS Review of System Per HPI Physical Exam Physical Exam GENERAL: no acute distress,bed, confused. HEENT: Oral mucosa moist. NECK: Supple. JVD. LUNGS: Clear bilaterally. Non labored HEART: S1, S2 with no gallops or murmurs. ABDOMEN: Soft, nontender, nondistended. GENITOURINARY: Yun in place. NEUROLOGIC: Alert, awake, confused baseline SKIN : Warm, dry. No generalized rash Vital Signs Vital Signs Date Time Temp Pulse Resp B/P (MAP) Pulse Ox O2 Delivery O2 Flow Rate FiO2 09/27/18 06:00 103 28 122/62 (82) 98 Room Air 09/27/18 04:00 98.7 98.7 09/26/18 18:30 3.0 Assessment & Plan HANNA- Suspect due to Dehydration, Poor PO intake , UTI Non Oliguric Renal function Improving Currently No emergent indication for REHAB TECH today Baseline unknown Urinary tract infection- On Abx per ID . Severe hyperglycemia- at presentation Glucose 1010 Primary managing Lactic acidosis, multifactorial. Weight loss with right lung mass Will Likely need Ct scan - Can be done without Contrast due to HANNA Hypernatremia -Encourage water intake Metabolic acidosis, improving. Labs Labs Laboratory Tests Test 09/26/18 16:15 09/26/18 16:40 09/26/18 17:00 09/26/18 17:07 White Blood Count 10.3 x10^3/uL (4.0-11.0) Red Blood Count 4.95 x10^6/uL (4.30-5.70) Hemoglobin 14.1 g/dL (13.0-17.5) Hematocrit 44.5 % (39.0-53.0) Mean Corpuscular Volume 90 fL (79-100) Mean Corpuscular Hemoglobin 29 pg (25-35) Mean Corpuscular Hemoglobin Concent 32 g/dL (31-37) Red Cell Distribution Width 15.4 % (11.5-14.5) Platelet Count 316 x10^3/uL (140-400) Neutrophils (%) (Auto) 80 % (31-73) Lymphocytes (%) (Auto) 13 % (24-48) Monocytes (%) (Auto) 7 % (0-9) Eosinophils (%) (Auto) 0 % (0-3) Basophils (%) (Auto) 0 % (0-3) Neutrophils # (Auto) 8.3 x10^3uL (1.8-7.7) Lymphocytes # (Auto) 1.3 x10^3/uL (1.0-4.8) Monocytes # (Auto) 0.7 x10^3/uL (0.0-1.1) Eosinophils # (Auto) 0.0 x10^3/uL (0.0-0.7) Basophils # (Auto) 0.0 x10^3/uL (0.0-0.2) Prothrombin Time 14.6 SEC (11.7-14.0) Prothromb Time International Ratio 1.2 (0.8-1.1) Sodium Level 144 mmol/L (136-145) Potassium Level 5.6 mmol/L (3.5-5.1) Chloride Level 101 mmol/L (98-107) Carbon Dioxide Level 20 mmol/L (21-32) Anion Gap 23 (6-14) Blood Urea Nitrogen 80 mg/dL (8-26) Creatinine 4.2 mg/dL (0.7-1.3) Estimated GFR (Cockcroft-Gault) 13.6 BUN/Creatinine Ratio 19 (6-20) Glucose Level 1010 mg/dL (70-99) Lactic Acid Level 6.8 mmol/L (0.4-2.0) Calcium Level 11.2 mg/dL (8.5-10.1) Magnesium Level 3.0 mg/dL (1.8-2.4) Total Bilirubin 0.8 mg/dL (0.2-1.0) Aspartate Amino Transf (AST/SGOT) 9 U/L (15-37) Alanine Aminotransferase (ALT/SGPT) 18 U/L (16-63) Alkaline Phosphatase 90 U/L (46-116) Total Protein 7.7 g/dL (6.4-8.2) Albumin 3.7 g/dL (3.4-5.0) Albumin/Globulin Ratio 0.9 (1.0-1.7) O2 Saturation 98 % (92-99) Arterial Blood pH 7.38 (7.35-7.45) Arterial Blood pCO2 at Patient Temp 32 mmHg (35-46) Arterial Blood pO2 at Patient Temp 149 mmHg (65-108) Arterial Blood HCO3 19 mmol/L (21-28) Arterial Blood Base Excess -5 mmol/L (-3-3) FiO2 28 Ammonia < 10 mcmol/L (11-34) Bedside Troponin I 0.01 ng/ml (<0.08) Test 09/26/18 17:10 09/26/18 19:43 09/26/18 19:50 09/26/18 21:28 Urine Collection Type Unknown Urine Color Yellow Urine Clarity Turbid Urine pH 5.5 Urine Specific [place] 1.020 Urine Protein 100 mg/dL (NEG-TRACE) Urine Glucose (UA) >=1000 mg/dL (NEG) Urine Ketones (Stick) Trace mg/dL (NEG) Urine Blood Large (NEG) Urine Nitrite Negative (NEG) Urine Bilirubin Negative (NEG) Urine Urobilinogen Dipstick 0.2 mg/dL (0.2 mg/dL) Urine Leukocyte Esterase Large (NEG) Urine RBC 11-20 /HPF (0-2) Urine WBC Tntc /HPF (0-4) Urine Squamous Epithelial Cells None /LPF Urine Bacteria Many /HPF (0-FEW) Glucose (Fingerstick) 594 mg/dL (70-99) 354 mg/dL (70-99) Sodium Level 153 mmol/L (136-145) Potassium Level 3.9 mmol/L (3.5-5.1) Chloride Level 114 mmol/L (98-107) Carbon Dioxide Level 15 mmol/L (21-32) Anion Gap 24 (6-14) Blood Urea Nitrogen 77 mg/dL (8-26) Creatinine 3.5 mg/dL (0.7-1.3) Estimated GFR (Cockcroft-Gault) 16.8 Glucose Level 684 mg/dL (70-99) Lactic Acid Level 5.9 mmol/L (0.4-2.0) Calcium Level 10.4 mg/dL (8.5-10.1) Phosphorus Level 3.7 mg/dL (2.6-4.7) Magnesium Level 2.9 mg/dL (1.8-2.4) Total Bilirubin 0.5 mg/dL (0.2-1.0) Direct Bilirubin 0.2 mg/dL (0.0-0.2) Aspartate Amino Transf (AST/SGOT) 13 U/L (15-37) Alanine Aminotransferase (ALT/SGPT) 15 U/L (16-63) Alkaline Phosphatase 85 U/L (46-116) Total Protein 8.0 g/dL (6.4-8.2) Albumin 3.3 g/dL (3.4-5.0) Lipase 522 U/L (73-393) Test 09/26/18 22:38 09/27/18 02:35 09/27/18 08:30 Glucose (Fingerstick) 287 mg/dL (70-99) Sodium Level 159 mmol/L (136-145) 156 mmol/L (136-145) Potassium Level 3.5 mmol/L (3.5-5.1) 3.9 mmol/L (3.5-5.1) Chloride Level 123 mmol/L (98-107) 121 mmol/L (98-107) Carbon Dioxide Level 24 mmol/L (21-32) 20 mmol/L (21-32) Anion Gap 12 (6-14) 15 (6-14) Blood Urea Nitrogen 62 mg/dL (8-26) 59 mg/dL (8-26) Creatinine 2.6 mg/dL (0.7-1.3) 2.5 mg/dL (0.7-1.3) Estimated GFR (Cockcroft-Gault) 23.7 24.8 Glucose Level 139 mg/dL (70-99) 266 mg/dL (70-99) Calcium Level 9.6 mg/dL (8.5-10.1) 9.7 mg/dL (8.5-10.1) Phosphorus Level 2.3 mg/dL (2.6-4.7) 3.0 mg/dL (2.6-4.7) Magnesium Level 2.3 mg/dL (1.8-2.4) 2.5 mg/dL (1.8-2.4) Laboratory Tests Test 09/26/18 16:15 09/26/18 16:40 09/26/18 17:00 09/26/18 17:07 White Blood Count 10.3 x10^3/uL (4.0-11.0) Red Blood Count 4.95 x10^6/uL (4.30-5.70) Hemoglobin 14.1 g/dL (13.0-17.5) Hematocrit 44.5 % (39.0-53.0) Mean Corpuscular Volume 90 fL (79-100) Mean Corpuscular Hemoglobin 29 pg (25-35) Mean Corpuscular Hemoglobin Concent 32 g/dL (31-37) Red Cell Distribution Width 15.4 % (11.5-14.5) Platelet Count 316 x10^3/uL (140-400) Neutrophils (%) (Auto) 80 % (31-73) Lymphocytes (%) (Auto) 13 % (24-48) Monocytes (%) (Auto) 7 % (0-9) Eosinophils (%) (Auto) 0 % (0-3) Basophils (%) (Auto) 0 % (0-3) Neutrophils # (Auto) 8.3 x10^3uL (1.8-7.7) Lymphocytes # (Auto) 1.3 x10^3/uL (1.0-4.8) Monocytes # (Auto) 0.7 x10^3/uL (0.0-1.1) Eosinophils # (Auto) 0.0 x10^3/uL (0.0-0.7) Basophils # (Auto) 0.0 x10^3/uL (0.0-0.2) Prothrombin Time 14.6 SEC (11.7-14.0) Prothromb Time International Ratio 1.2 (0.8-1.1) Sodium Level 144 mmol/L (136-145) Potassium Level 5.6 mmol/L (3.5-5.1) Chloride Level 101 mmol/L (98-107) Carbon Dioxide Level 20 mmol/L (21-32) Anion Gap 23 (6-14) Blood Urea Nitrogen 80 mg/dL (8-26) Creatinine 4.2 mg/dL (0.7-1.3) Estimated GFR (Cockcroft-Gault) 13.6 BUN/Creatinine Ratio 19 (6-20) Glucose Level 1010 mg/dL (70-99) Lactic Acid Level 6.8 mmol/L (0.4-2.0) Calcium Level 11.2 mg/dL (8.5-10.1) Magnesium Level 3.0 mg/dL (1.8-2.4) Total Bilirubin 0.8 mg/dL (0.2-1.0) Aspartate Amino Transf (AST/SGOT) 9 U/L (15-37) Alanine Aminotransferase (ALT/SGPT) 18 U/L (16-63) Alkaline Phosphatase 90 U/L (46-116) Total Protein 7.7 g/dL (6.4-8.2) Albumin 3.7 g/dL (3.4-5.0) Albumin/Globulin Ratio 0.9 (1.0-1.7) O2 Saturation 98 % (92-99) Arterial Blood pH 7.38 (7.35-7.45) Arterial Blood pCO2 at Patient Temp 32 mmHg (35-46) Arterial Blood pO2 at Patient Temp 149 mmHg (65-108) Arterial Blood HCO3 19 mmol/L (21-28) Arterial Blood Base Excess -5 mmol/L (-3-3) FiO2 28 Ammonia < 10 mcmol/L (11-34) Bedside Troponin I 0.01 ng/ml (<0.08) Test 09/26/18 17:10 09/26/18 19:43 09/26/18 19:50 09/26/18 21:28 Urine Collection Type Unknown Urine Color Yellow Urine Clarity Turbid Urine pH 5.5 Urine Specific [place] 1.020 Urine Protein 100 mg/dL (NEG-TRACE) Urine Glucose (UA) >=1000 mg/dL (NEG) Urine Ketones (Stick) Trace mg/dL (NEG) Urine Blood Large (NEG) Urine Nitrite Negative (NEG) Urine Bilirubin Negative (NEG) Urine Urobilinogen Dipstick 0.2 mg/dL (0.2 mg/dL) Urine Leukocyte Esterase Large (NEG) Urine RBC 11-20 /HPF (0-2) Urine WBC Tntc /HPF (0-4) Urine Squamous Epithelial Cells None /LPF Urine Bacteria Many /HPF (0-FEW) Glucose (Fingerstick) 594 mg/dL (70-99) 354 mg/dL (70-99) Sodium Level 153 mmol/L (136-145) Potassium Level 3.9 mmol/L (3.5-5.1) Chloride Level 114 mmol/L (98-107) Carbon Dioxide Level 15 mmol/L (21-32) Anion Gap 24 (6-14) Blood Urea Nitrogen 77 mg/dL (8-26) Creatinine 3.5 mg/dL (0.7-1.3) Estimated GFR (Cockcroft-Gault) 16.8 Glucose Level 684 mg/dL (70-99) Lactic Acid Level 5.9 mmol/L (0.4-2.0) Calcium Level 10.4 mg/dL (8.5-10.1) Phosphorus Level 3.7 mg/dL (2.6-4.7) Magnesium Level 2.9 mg/dL (1.8-2.4) Total Bilirubin 0.5 mg/dL (0.2-1.0) Direct Bilirubin 0.2 mg/dL (0.0-0.2) Aspartate Amino Transf (AST/SGOT) 13 U/L (15-37) Alanine Aminotransferase (ALT/SGPT) 15 U/L (16-63) Alkaline Phosphatase 85 U/L (46-116) Total Protein 8.0 g/dL (6.4-8.2) Albumin 3.3 g/dL (3.4-5.0) Lipase 522 U/L (73-393) Test 09/26/18 22:38 09/27/18 02:35 09/27/18 08:30 Glucose (Fingerstick) 287 mg/dL (70-99) Sodium Level 159 mmol/L (136-145) 156 mmol/L (136-145) Potassium Level 3.5 mmol/L (3.5-5.1) 3.9 mmol/L (3.5-5.1) Chloride Level 123 mmol/L (98-107) 121 mmol/L (98-107) Carbon Dioxide Level 24 mmol/L (21-32) 20 mmol/L (21-32) Anion Gap 12 (6-14) 15 (6-14) Blood Urea Nitrogen 62 mg/dL (8-26) 59 mg/dL (8-26) Creatinine 2.6 mg/dL (0.7-1.3) 2.5 mg/dL (0.7-1.3) Estimated GFR (Cockcroft-Gault) 23.7 24.8 Glucose Level 139 mg/dL (70-99) 266 mg/dL (70-99) Calcium Level 9.6 mg/dL (8.5-10.1) 9.7 mg/dL (8.5-10.1) Phosphorus Level 2.3 mg/dL (2.6-4.7) 3.0 mg/dL (2.6-4.7) Magnesium Level 2.3 mg/dL (1.8-2.4) 2.5 mg/dL (1.8-2.4) Review All relevant outside records, renal labs, imaging studies, telemetry/EKG's were reviewed. Images Images CxR- There is a mass in the lateral right lung. RITU STEPHENS MD Sep 27, 2018 11:00
--- NOTE | 2018-09-27 11:27 | PDOC ---
PROGRESS NOTES Chief Complaint Chief Complaint Sepsis POA with no organ dysfunction Status post DKA Hypertension, controlled AK I VMN CK D stage 4 Lung mass Renal failure UTI Dementia Diabetes mellitus 2 uncontrolled History of Present Illness History of Present Illness Insulin drip off sometime last night Gap 15, looking well Patient not the best historian, some dementia Lives alone at home with no assistive device of ambulation Lactate down to 5.9 from 6 Tachycardic but BP okay He takes only OHA not insulin at home A1c is still pending Creatinine 2.5 with a GFR 24 - renal on board He is a DNR Plan: continue antibiotics for UTI Heme onc on board because of some lung mass seen on imaging He feels and looks well, will go back to home hopefully with no PT needs DNR Hold lisinopril secondary to that AK I on CK D Okay to transfer out of ICU Discussed with [employer] COMPLIANCE SPECIALIST Continue antibiotic for UTI Follow-up A1c Sliding-scale insulin Might need to start some glyburide not metformin We'll hold off sulfonylurea for now in this elderly Vitals Vitals Vital Signs Date Time Temp Pulse Resp B/P (MAP) Pulse Ox O2 Delivery O2 Flow Rate FiO2 09/27/18 06:00 103 28 122/62 (82) 98 Room Air 09/27/18 04:00 98.7 98.7 09/26/18 18:30 3.0 Physical Exam General: Alert, Oriented X3, Cooperative, No acute distress Heart: Regular rate, Normal S1, Normal S2, No murmurs Lungs: Clear Abdomen: Normal bowel sounds, Soft, No tenderness Extremities: No clubbing, No cyanosis Skin: No rashes, No breakdown, No significant lesion Labs LABS Laboratory Tests Test 09/26/18 16:15 09/26/18 16:40 09/26/18 17:00 09/26/18 17:07 White Blood Count 10.3 x10^3/uL (4.0-11.0) Red Blood Count 4.95 x10^6/uL (4.30-5.70) Hemoglobin 14.1 g/dL (13.0-17.5) Hematocrit 44.5 % (39.0-53.0) Mean Corpuscular Volume 90 fL (79-100) Mean Corpuscular Hemoglobin 29 pg (25-35) Mean Corpuscular Hemoglobin Concent 32 g/dL (31-37) Red Cell Distribution Width 15.4 % (11.5-14.5) Platelet Count 316 x10^3/uL (140-400) Neutrophils (%) (Auto) 80 % (31-73) Lymphocytes (%) (Auto) 13 % (24-48) Monocytes (%) (Auto) 7 % (0-9) Eosinophils (%) (Auto) 0 % (0-3) Basophils (%) (Auto) 0 % (0-3) Neutrophils # (Auto) 8.3 x10^3uL (1.8-7.7) Lymphocytes # (Auto) 1.3 x10^3/uL (1.0-4.8) Monocytes # (Auto) 0.7 x10^3/uL (0.0-1.1) Eosinophils # (Auto) 0.0 x10^3/uL (0.0-0.7) Basophils # (Auto) 0.0 x10^3/uL (0.0-0.2) Prothrombin Time 14.6 SEC (11.7-14.0) Prothromb Time International Ratio 1.2 (0.8-1.1) Sodium Level 144 mmol/L (136-145) Potassium Level 5.6 mmol/L (3.5-5.1) Chloride Level 101 mmol/L (98-107) Carbon Dioxide Level 20 mmol/L (21-32) Anion Gap 23 (6-14) Blood Urea Nitrogen 80 mg/dL (8-26) Creatinine 4.2 mg/dL (0.7-1.3) Estimated GFR (Cockcroft-Gault) 13.6 BUN/Creatinine Ratio 19 (6-20) Glucose Level 1010 mg/dL (70-99) Lactic Acid Level 6.8 mmol/L (0.4-2.0) Calcium Level 11.2 mg/dL (8.5-10.1) Magnesium Level 3.0 mg/dL (1.8-2.4) Total Bilirubin 0.8 mg/dL (0.2-1.0) Aspartate Amino Transf (AST/SGOT) 9 U/L (15-37) Alanine Aminotransferase (ALT/SGPT) 18 U/L (16-63) Alkaline Phosphatase 90 U/L (46-116) Total Protein 7.7 g/dL (6.4-8.2) Albumin 3.7 g/dL (3.4-5.0) Albumin/Globulin Ratio 0.9 (1.0-1.7) O2 Saturation 98 % (92-99) Arterial Blood pH 7.38 (7.35-7.45) Arterial Blood pCO2 at Patient Temp 32 mmHg (35-46) Arterial Blood pO2 at Patient Temp 149 mmHg (65-108) Arterial Blood HCO3 19 mmol/L (21-28) Arterial Blood Base Excess -5 mmol/L (-3-3) FiO2 28 Ammonia < 10 mcmol/L (11-34) Bedside Troponin I 0.01 ng/ml (<0.08) Test 09/26/18 17:10 09/26/18 19:43 09/26/18 19:50 09/26/18 21:28 Urine Collection Type Unknown Urine Color Yellow Urine Clarity Turbid Urine pH 5.5 Urine Specific [place] 1.020 Urine Protein 100 mg/dL (NEG-TRACE) Urine Glucose (UA) >=1000 mg/dL (NEG) Urine Ketones (Stick) Trace mg/dL (NEG) Urine Blood Large (NEG) Urine Nitrite Negative (NEG) Urine Bilirubin Negative (NEG) Urine Urobilinogen Dipstick 0.2 mg/dL (0.2 mg/dL) Urine Leukocyte Esterase Large (NEG) Urine RBC 11-20 /HPF (0-2) Urine WBC Tntc /HPF (0-4) Urine Squamous Epithelial Cells None /LPF Urine Bacteria Many /HPF (0-FEW) Glucose (Fingerstick) 594 mg/dL (70-99) 354 mg/dL (70-99) Sodium Level 153 mmol/L (136-145) Potassium Level 3.9 mmol/L (3.5-5.1) Chloride Level 114 mmol/L (98-107) Carbon Dioxide Level 15 mmol/L (21-32) Anion Gap 24 (6-14) Blood Urea Nitrogen 77 mg/dL (8-26) Creatinine 3.5 mg/dL (0.7-1.3) Estimated GFR (Cockcroft-Gault) 16.8 Glucose Level 684 mg/dL (70-99) Lactic Acid Level 5.9 mmol/L (0.4-2.0) Calcium Level 10.4 mg/dL (8.5-10.1) Phosphorus Level 3.7 mg/dL (2.6-4.7) Magnesium Level 2.9 mg/dL (1.8-2.4) Total Bilirubin 0.5 mg/dL (0.2-1.0) Direct Bilirubin 0.2 mg/dL (0.0-0.2) Aspartate Amino Transf (AST/SGOT) 13 U/L (15-37) Alanine Aminotransferase (ALT/SGPT) 15 U/L (16-63) Alkaline Phosphatase 85 U/L (46-116) Total Protein 8.0 g/dL (6.4-8.2) Albumin 3.3 g/dL (3.4-5.0) Lipase 522 U/L (73-393) Test 09/26/18 22:38 09/27/18 02:35 09/27/18 08:30 09/27/18 10:19 Glucose (Fingerstick) 287 mg/dL (70-99) Sodium Level 159 mmol/L (136-145) 156 mmol/L (136-145) Potassium Level 3.5 mmol/L (3.5-5.1) 3.9 mmol/L (3.5-5.1) Chloride Level 123 mmol/L (98-107) 121 mmol/L (98-107) Carbon Dioxide Level 24 mmol/L (21-32) 20 mmol/L (21-32) Anion Gap 12 (6-14) 15 (6-14) Blood Urea Nitrogen 62 mg/dL (8-26) 59 mg/dL (8-26) Creatinine 2.6 mg/dL (0.7-1.3) 2.5 mg/dL (0.7-1.3) Estimated GFR (Cockcroft-Gault) 23.7 24.8 Glucose Level 139 mg/dL (70-99) 266 mg/dL (70-99) Calcium Level 9.6 mg/dL (8.5-10.1) 9.7 mg/dL (8.5-10.1) Phosphorus Level 2.3 mg/dL (2.6-4.7) 3.0 mg/dL (2.6-4.7) Magnesium Level 2.3 mg/dL (1.8-2.4) 2.5 mg/dL (1.8-2.4) Lactic Acid Level 1.3 mmol/L (0.4-2.0) Review of Systems Review of Systems A 14 point ROS was completed with the following noted as positive: Other systems reviewed and negative. \CONSTITUTIONAL: No fever or chills EYES: No recent changes SKIN: No rash or itching CARDIOVASCULAR: No chest pain, syncope, palpitations, or edema RESPIRATORY: No SOB or cough GASTROINTESTINAL: No nausea, vomiting or abdominal pain NEUROLOGICAL: No headaches or weakness ENDOCRINE: No cold or heat intolerance GENITOURINARY: No urgency or frequency of urination MUSCULOSKELETAL: No back pain or joint pain LYMPHATICS: No enlarged lymph nodes PSYCHIATRIC: No anxiety or depression Assessment and Plan Assessmemt and Plan Problems Medical Problems: (1) Acute renal failure Status: Acute (2) DKA (diabetic ketoacidoses) Status: Acute (3) Hyperosmolar hyperglycemic coma due to diabetes mellitus without ketoacidosis Status: Acute (4) Lung mass Status: Acute (5) Severe dehydration Status: Acute (6) Severe sepsis Status: Acute (7) Urinary tract infection Status: Acute Comment Review of Relevant I have reviewed the following items ranjith (where applicable) has been applied. Labs Laboratory Tests Test 09/26/18 16:15 09/26/18 16:40 09/26/18 17:00 09/26/18 17:07 White Blood Count 10.3 x10^3/uL (4.0-11.0) Red Blood Count 4.95 x10^6/uL (4.30-5.70) Hemoglobin 14.1 g/dL (13.0-17.5) Hematocrit 44.5 % (39.0-53.0) Mean Corpuscular Volume 90 fL (79-100) Mean Corpuscular Hemoglobin 29 pg (25-35) Mean Corpuscular Hemoglobin Concent 32 g/dL (31-37) Red Cell Distribution Width 15.4 % (11.5-14.5) Platelet Count 316 x10^3/uL (140-400) Neutrophils (%) (Auto) 80 % (31-73) Lymphocytes (%) (Auto) 13 % (24-48) Monocytes (%) (Auto) 7 % (0-9) Eosinophils (%) (Auto) 0 % (0-3) Basophils (%) (Auto) 0 % (0-3) Neutrophils # (Auto) 8.3 x10^3uL (1.8-7.7) Lymphocytes # (Auto) 1.3 x10^3/uL (1.0-4.8) Monocytes # (Auto) 0.7 x10^3/uL (0.0-1.1) Eosinophils # (Auto) 0.0 x10^3/uL (0.0-0.7) Basophils # (Auto) 0.0 x10^3/uL (0.0-0.2) Prothrombin Time 14.6 SEC (11.7-14.0) Prothromb Time International Ratio 1.2 (0.8-1.1) Sodium Level 144 mmol/L (136-145) Potassium Level 5.6 mmol/L (3.5-5.1) Chloride Level 101 mmol/L (98-107) Carbon Dioxide Level 20 mmol/L (21-32) Anion Gap 23 (6-14) Blood Urea Nitrogen 80 mg/dL (8-26) Creatinine 4.2 mg/dL (0.7-1.3) Estimated GFR (Cockcroft-Gault) 13.6 BUN/Creatinine Ratio 19 (6-20) Glucose Level 1010 mg/dL (70-99) Lactic Acid Level 6.8 mmol/L (0.4-2.0) Calcium Level 11.2 mg/dL (8.5-10.1) Magnesium Level 3.0 mg/dL (1.8-2.4) Total Bilirubin 0.8 mg/dL (0.2-1.0) Aspartate Amino Transf (AST/SGOT) 9 U/L (15-37) Alanine Aminotransferase (ALT/SGPT) 18 U/L (16-63) Alkaline Phosphatase 90 U/L (46-116) Total Protein 7.7 g/dL (6.4-8.2) Albumin 3.7 g/dL (3.4-5.0) Albumin/Globulin Ratio 0.9 (1.0-1.7) O2 Saturation 98 % (92-99) Arterial Blood pH 7.38 (7.35-7.45) Arterial Blood pCO2 at Patient Temp 32 mmHg (35-46) Arterial Blood pO2 at Patient Temp 149 mmHg (65-108) Arterial Blood HCO3 19 mmol/L (21-28) Arterial Blood Base Excess -5 mmol/L (-3-3) FiO2 28 Ammonia < 10 mcmol/L (11-34) Bedside Troponin I 0.01 ng/ml (<0.08) Test 09/26/18 17:10 09/26/18 19:43 09/26/18 19:50 09/26/18 21:28 Urine Collection Type Unknown Urine Color Yellow Urine Clarity Turbid Urine pH 5.5 Urine Specific [place] 1.020 Urine Protein 100 mg/dL (NEG-TRACE) Urine Glucose (UA) >=1000 mg/dL (NEG) Urine Ketones (Stick) Trace mg/dL (NEG) Urine Blood Large (NEG) Urine Nitrite Negative (NEG) Urine Bilirubin Negative (NEG) Urine Urobilinogen Dipstick 0.2 mg/dL (0.2 mg/dL) Urine Leukocyte Esterase Large (NEG) Urine RBC 11-20 /HPF (0-2) Urine WBC Tntc /HPF (0-4) Urine Squamous Epithelial Cells None /LPF Urine Bacteria Many /HPF (0-FEW) Glucose (Fingerstick) 594 mg/dL (70-99) 354 mg/dL (70-99) Sodium Level 153 mmol/L (136-145) Potassium Level 3.9 mmol/L (3.5-5.1) Chloride Level 114 mmol/L (98-107) Carbon Dioxide Level 15 mmol/L (21-32) Anion Gap 24 (6-14) Blood Urea Nitrogen 77 mg/dL (8-26) Creatinine 3.5 mg/dL (0.7-1.3) Estimated GFR (Cockcroft-Gault) 16.8 Glucose Level 684 mg/dL (70-99) Lactic Acid Level 5.9 mmol/L (0.4-2.0) Calcium Level 10.4 mg/dL (8.5-10.1) Phosphorus Level 3.7 mg/dL (2.6-4.7) Magnesium Level 2.9 mg/dL (1.8-2.4) Total Bilirubin 0.5 mg/dL (0.2-1.0) Direct Bilirubin 0.2 mg/dL (0.0-0.2) Aspartate Amino Transf (AST/SGOT) 13 U/L (15-37) Alanine Aminotransferase (ALT/SGPT) 15 U/L (16-63) Alkaline Phosphatase 85 U/L (46-116) Total Protein 8.0 g/dL (6.4-8.2) Albumin 3.3 g/dL (3.4-5.0) Lipase 522 U/L (73-393) Test 09/26/18 22:38 09/27/18 02:35 09/27/18 08:30 09/27/18 10:19 Glucose (Fingerstick) 287 mg/dL (70-99) Sodium Level 159 mmol/L (136-145) 156 mmol/L (136-145) Potassium Level 3.5 mmol/L (3.5-5.1) 3.9 mmol/L (3.5-5.1) Chloride Level 123 mmol/L (98-107) 121 mmol/L (98-107) Carbon Dioxide Level 24 mmol/L (21-32) 20 mmol/L (21-32) Anion Gap 12 (6-14) 15 (6-14) Blood Urea Nitrogen 62 mg/dL (8-26) 59 mg/dL (8-26) Creatinine 2.6 mg/dL (0.7-1.3) 2.5 mg/dL (0.7-1.3) Estimated GFR (Cockcroft-Gault) 23.7 24.8 Glucose Level 139 mg/dL (70-99) 266 mg/dL (70-99) Calcium Level 9.6 mg/dL (8.5-10.1) 9.7 mg/dL (8.5-10.1) Phosphorus Level 2.3 mg/dL (2.6-4.7) 3.0 mg/dL (2.6-4.7) Magnesium Level 2.3 mg/dL (1.8-2.4) 2.5 mg/dL (1.8-2.4) Lactic Acid Level 1.3 mmol/L (0.4-2.0) Laboratory Tests Test 09/26/18 16:15 09/26/18 16:40 09/26/18 17:00 09/26/18 17:07 White Blood Count 10.3 x10^3/uL (4.0-11.0) Red Blood Count 4.95 x10^6/uL (4.30-5.70) Hemoglobin 14.1 g/dL (13.0-17.5) Hematocrit 44.5 % (39.0-53.0) Mean Corpuscular Volume 90 fL (79-100) Mean Corpuscular Hemoglobin 29 pg (25-35) Mean Corpuscular Hemoglobin Concent 32 g/dL (31-37) Red Cell Distribution Width 15.4 % (11.5-14.5) Platelet Count 316 x10^3/uL (140-400) Neutrophils (%) (Auto) 80 % (31-73) Lymphocytes (%) (Auto) 13 % (24-48) Monocytes (%) (Auto) 7 % (0-9) Eosinophils (%) (Auto) 0 % (0-3) Basophils (%) (Auto) 0 % (0-3) Neutrophils # (Auto) 8.3 x10^3uL (1.8-7.7) Lymphocytes # (Auto) 1.3 x10^3/uL (1.0-4.8) Monocytes # (Auto) 0.7 x10^3/uL (0.0-1.1) Eosinophils # (Auto) 0.0 x10^3/uL (0.0-0.7) Basophils # (Auto) 0.0 x10^3/uL (0.0-0.2) Prothrombin Time 14.6 SEC (11.7-14.0) Prothromb Time International Ratio 1.2 (0.8-1.1) Sodium Level 144 mmol/L (136-145) Potassium Level 5.6 mmol/L (3.5-5.1) Chloride Level 101 mmol/L (98-107) Carbon Dioxide Level 20 mmol/L (21-32) Anion Gap 23 (6-14) Blood Urea Nitrogen 80 mg/dL (8-26) Creatinine 4.2 mg/dL (0.7-1.3) Estimated GFR (Cockcroft-Gault) 13.6 BUN/Creatinine Ratio 19 (6-20) Glucose Level 1010 mg/dL (70-99) Lactic Acid Level 6.8 mmol/L (0.4-2.0) Calcium Level 11.2 mg/dL (8.5-10.1) Magnesium Level 3.0 mg/dL (1.8-2.4) Total Bilirubin 0.8 mg/dL (0.2-1.0) Aspartate Amino Transf (AST/SGOT) 9 U/L (15-37) Alanine Aminotransferase (ALT/SGPT) 18 U/L (16-63) Alkaline Phosphatase 90 U/L (46-116) Total Protein 7.7 g/dL (6.4-8.2) Albumin 3.7 g/dL (3.4-5.0) Albumin/Globulin Ratio 0.9 (1.0-1.7) O2 Saturation 98 % (92-99) Arterial Blood pH 7.38 (7.35-7.45) Arterial Blood pCO2 at Patient Temp 32 mmHg (35-46) Arterial Blood pO2 at Patient Temp 149 mmHg (65-108) Arterial Blood HCO3 19 mmol/L (21-28) Arterial Blood Base Excess -5 mmol/L (-3-3) FiO2 28 Ammonia < 10 mcmol/L (11-34) Bedside Troponin I 0.01 ng/ml (<0.08) Test 09/26/18 17:10 09/26/18 19:43 09/26/18 19:50 09/26/18 21:28 Urine Collection Type Unknown Urine Color Yellow Urine Clarity Turbid Urine pH 5.5 Urine Specific [place] 1.020 Urine Protein 100 mg/dL (NEG-TRACE) Urine Glucose (UA) >=1000 mg/dL (NEG) Urine Ketones (Stick) Trace mg/dL (NEG) Urine Blood Large (NEG) Urine Nitrite Negative (NEG) Urine Bilirubin Negative (NEG) Urine Urobilinogen Dipstick 0.2 mg/dL (0.2 mg/dL) Urine Leukocyte Esterase Large (NEG) Urine RBC 11-20 /HPF (0-2) Urine WBC Tntc /HPF (0-4) Urine Squamous Epithelial Cells None /LPF Urine Bacteria Many /HPF (0-FEW) Glucose (Fingerstick) 594 mg/dL (70-99) 354 mg/dL (70-99) Sodium Level 153 mmol/L (136-145) Potassium Level 3.9 mmol/L (3.5-5.1) Chloride Level 114 mmol/L (98-107) Carbon Dioxide Level 15 mmol/L (21-32) Anion Gap 24 (6-14) Blood Urea Nitrogen 77 mg/dL (8-26) Creatinine 3.5 mg/dL (0.7-1.3) Estimated GFR (Cockcroft-Gault) 16.8 Glucose Level 684 mg/dL (70-99) Lactic Acid Level 5.9 mmol/L (0.4-2.0) Calcium Level 10.4 mg/dL (8.5-10.1) Phosphorus Level 3.7 mg/dL (2.6-4.7) Magnesium Level 2.9 mg/dL (1.8-2.4) Total Bilirubin 0.5 mg/dL (0.2-1.0) Direct Bilirubin 0.2 mg/dL (0.0-0.2) Aspartate Amino Transf (AST/SGOT) 13 U/L (15-37) Alanine Aminotransferase (ALT/SGPT) 15 U/L (16-63) Alkaline Phosphatase 85 U/L (46-116) Total Protein 8.0 g/dL (6.4-8.2) Albumin 3.3 g/dL (3.4-5.0) Lipase 522 U/L (73-393) Test 09/26/18 22:38 09/27/18 02:35 09/27/18 08:30 09/27/18 10:19 Glucose (Fingerstick) 287 mg/dL (70-99) Sodium Level 159 mmol/L (136-145) 156 mmol/L (136-145) Potassium Level 3.5 mmol/L (3.5-5.1) 3.9 mmol/L (3.5-5.1) Chloride Level 123 mmol/L (98-107) 121 mmol/L (98-107) Carbon Dioxide Level 24 mmol/L (21-32) 20 mmol/L (21-32) Anion Gap 12 (6-14) 15 (6-14) Blood Urea Nitrogen 62 mg/dL (8-26) 59 mg/dL (8-26) Creatinine 2.6 mg/dL (0.7-1.3) 2.5 mg/dL (0.7-1.3) Estimated GFR (Cockcroft-Gault) 23.7 24.8 Glucose Level 139 mg/dL (70-99) 266 mg/dL (70-99) Calcium Level 9.6 mg/dL (8.5-10.1) 9.7 mg/dL (8.5-10.1) Phosphorus Level 2.3 mg/dL (2.6-4.7) 3.0 mg/dL (2.6-4.7) Magnesium Level 2.3 mg/dL (1.8-2.4) 2.5 mg/dL (1.8-2.4) Lactic Acid Level 1.3 mmol/L (0.4-2.0) Medications Current Medications Sodium Chloride 1,000 ml @ 1,000 mls/hr Q1H IV Last administered on 09/26/18at 16:21; Start 09/26/18 at 17:00; Stop 09/26/18 at 17:59; Status DC Sodium Chloride 1,000 ml @ 1,000 mls/hr 1X ONCE IV Last administered on 09/26/18at 17:41; Start 09/26/18 at 17:00; Stop 09/26/18 at 17:59; Status DC Insulin Human Regular (HumuLIN R VIAL) 10 unit 1X ONCE IV Last administered on 09/26/18at 18:28; Start 09/26/18 at 17:30; Stop 09/26/18 at 17:31; Status DC Insulin Human Regular 150 ml @ 0 mls/hr 1X ONCE IV Last administered on 09/26/18at 18:31; Start 09/26/18 at 17:30; Stop 09/26/18 at 17:31; Status DC Piperacillin Sod/ Tazobactam Sod 3.375 gm/Sodium Chloride 50 ml @ 100 mls/hr Q6HRS IV ; Start 09/26/18 at 18:00; Status UNV Vancomycin HCl 250 ml @ 250 mls/hr 1X ONCE IV ; Start 09/26/18 at 17:45; Stop 09/26/18 at 18:44; Status UNV Piperacillin Sod/ Tazobactam Sod 3.375 gm/Sodium Chloride 50 ml @ 100 mls/hr ONCE ONCE IV Last administered on 09/26/18at 17:42; Start 09/26/18 at 17:45; Stop 09/26/18 at 18:14; Status DC Vancomycin HCl 1.5 gm/Sodium Chloride 500 ml @ 250 mls/hr 1X ONCE IV Last administered on 09/26/18at 18:49; Start 09/26/18 at 18:15; Stop 09/26/18 at 20:14; Status DC Sodium Chloride 1,000 ml @ 150 mls/hr Q6H40M IV Last administered on 09/26/18at 18:59; Start 09/26/18 at 17:44; Stop 09/27/18 at 17:43 Piperacillin Sod/ Tazobactam Sod 2.25 gm/Sodium Chloride 50 ml @ 100 mls/hr Q8HRS IV Last administered on 09/27/18at 06:21; Start 09/27/18 at 06:00 Sodium Chloride 1,000 ml @ 500 mls/hr Q2H IV Last administered on 09/26/18at 22:07; Start 09/26/18 at 21:15; Stop 09/26/18 at 21:40; Status DC Insulin Human Regular 150 unit/ Sodium Chloride 151.5 ml @ 0 mls/hr CONT PRN PRN IV PER PROTOCOL; Start 09/26/18 at 21:15 Potassium Chloride/Water 100 ml @ 100 mls/hr PRN Q1HR PRN IV SEE COMMENTS; Start 09/26/18 at 21:15 Potassium Chloride/Water 100 ml @ 100 mls/hr PRN Q1HR PRN IV SEE COMMENTS; Start 09/26/18 at 21:15 Potassium Chloride/Water 100 ml @ 100 mls/hr PRN Q1HR PRN IV SEE COMMENTS; Start 09/26/18 at 21:15 Dextrose (Dextrose 50%-Water Syringe) 25 gm CONT PRN PRN IV PER PROTOCOL Last administered on 09/27/18at 02:35; Start 09/27/18 at 02:30; Stop 09/27/18 at 05:32; Status DC Sodium Chloride 1,000 ml @ 125 mls/hr 1X ONCE IV Last administered on 09/27/18at 05:02; Start 09/27/18 at 04:15; Stop 09/27/18 at 12:14 Insulin Human Lispro (HumaLOG) 0-5 UNITS TIDWMEALS SQ Last administered on 09/27/18at 08:54; Start 09/27/18 at 08:00; Stop 09/27/18 at 09:14; Status DC Dextrose (Dextrose 50%-Water Syringe) 12.5 gm PRN Q15MIN PRN IV SEE COMMENTS; Start 09/27/18 at 05:30; Stop 09/27/18 at 09:26; Status DC Lactobacillus Rhamnosus (Culturelle) 1 cap BID PO ; Start 09/27/18 at 21:00 Insulin Human Lispro (HumaLOG) 0-9 UNITS TIDWMEALS SQ ; Start 09/27/18 at 12:00 Dextrose (Dextrose 50%-Water Syringe) 12.5 gm PRN Q15MIN PRN IV SEE COMMENTS; Start 09/27/18 at 09:15 Active Scripts Active Reported Lisinopril 40 Mg Tablet 1 Tab PO DAILY Vitals/I & O Vital Sign - Last 24 Hours 09/26/18 09/26/18 09/26/18 09/26/18 16:01 16:15 16:20 16:24 Temp 97.8 97.8 Pulse 132 130 130 130 Resp 22 B/P (MAP) 81/64 (70) 79/49 (59) 87/54 (65) 73/51 (58) Pulse Ox 89 O2 Delivery Room Air Nasal Cannula Nasal Cannula Nasal Cannula O2 Flow Rate 3.0 3.0 3.0 09/26/18 09/26/18 09/26/18 09/26/18 16:25 16:45 17:00 17:00 Pulse 126 124 128 115 Resp 22 20 B/P (MAP) 79/51 (60) 96/60 (72) 168/89 (115) 130/77 (94) O2 Delivery Nasal Cannula Nasal Cannula Nasal Cannula Nasal Cannula O2 Flow Rate 3.0 3.0 3.0 3.0 09/26/18 09/26/18 09/26/18 09/26/18 17:30 18:00 18:30 19:15 Temp 98.4 98.4 Pulse 114 115 118 122 Resp 20 20 B/P (MAP) 132/73 (92) 130/71 (90) 118/54 (75) 92/68 (76) Pulse Ox 100 O2 Delivery Nasal Cannula Nasal Cannula Nasal Cannula Room Air O2 Flow Rate 3.0 3.0 3.0 09/26/18 09/26/18 09/26/18 09/26/18 19:30 19:45 20:00 20:15 Pulse 118 118 114 118 B/P (MAP) 107/62 (77) 170/80 (110) 143/70 (94) 125/69 (87) Pulse Ox 100 100 100 100 O2 Delivery Room Air Room Air Room Air Room Air 09/26/18 09/26/18 09/27/18 09/27/18 22:00 23:00 00:01 01:00 Temp 98.3 98.3 Pulse 122 122 122 122 Resp 12 B/P (MAP) 138/70 (92) 128/70 (89) 104/67 (79) 107/59 (75) Pulse Ox 100 100 100 100 O2 Delivery Room Air Room Air Room Air Room Air 09/27/18 09/27/18 09/27/18 09/27/18 02:00 03:00 04:00 05:00 Temp 98.7 98.7 Pulse 122 103 104 104 Resp 10 21 28 28 B/P (MAP) 111/56 (74) 99/61 (74) 124/70 (88) 114/65 (81) Pulse Ox 100 97 99 99 O2 Delivery Room Air Room Air Room Air Room Air 09/27/18 06:00 Pulse 103 Resp 28 B/P (MAP) 122/62 (82) Pulse Ox 98 O2 Delivery Room Air Intake and Output 09/26/18 09/26/18 09/27/18 14:59 22:59 06:59 Intake Total 2100 ml 74.69 ml Output Total 925 ml 630 ml Balance 1175 ml -555.31 ml Nutrition Consultation Dietary Evaluation: Recommendations by RD: Decrease Calorie Intake, Protein supplementation Comments: REC continue w/ADA diet as ordered, honor food preferences, and provide snacks as requested REC glucerna TID (strawberry or butter pecan) Expected Outcomes/Goals: PO intake to meet >75% est needs Malnutrition Findings: Body Fat Depletion (Non Severe: Mild Depletion Weight Status: Appropriate LETTY TARIQ MD Sep 27, 2018 11:27
[2018-09-27] MEDS: INSULIN LISPRO 300 UNITS/3 ML INSULN.PEN. SQ SCH ×2 (12:45→17:38)
[2018-09-27] MEDS: glyBURIDE 1.25 MG TABLET PO SCH ×2 (12:46→17:33)
--- NOTE | 2018-09-27 12:49 | NUR ---
SS following for discharge planning. SS reviewed pt chart. Pt is from home and is currently on room air. No discharge needs noted at this time. SS will continue to follow for discharge planning
--- NOTE | 2018-09-27 15:49 | RAD ---
CT of the chest without contrast, 09/27/2018: HISTORY: Lung mass Noncontrast scans were obtained as requested. There is moderate calcific plaquing of the thoracic aorta without evidence of aneurysm. Moderate scattered coronary artery calcifications are present. The heart is not enlarged. Small mediastinal lymph nodes are seen without evidence of pathologic enlargement. There is a 3.6 x 2.9 cm peripheral mass in the lateral aspect of the right lung centered along the lateral margin of the minor fissure. It demonstrates heterogeneous decreased density internally within internal CT number ranging from approximately -22 to 8 Hounsfield units. This suggests a predominantly cystic or partially fatty mass. It abuts the pleura laterally. There is minimal linear atelectasis or scarring posteriorly in the lower lobes. No other pulmonary mass or dense consolidation is seen. There is no evidence of pleural fluid. There is bilateral renal cortical scarring. There are mild scattered degenerative changes in the spine. IMPRESSION: 1. Peripheral right lung mass centered along the lateral margin of the minor fissure which demonstrates heterogeneous low density internally. Diagnostic considerations include a pulmonary hamartoma, mucinous or necrotic neoplasm or liposarcoma. Correlation with any older chest imaging if available would be most helpful in evaluating stability. 2. Coronary artery calcifications. PQRS Compliance Statement: One or more of the following individualized dose reduction techniques were utilized for this examination: 1. Automated exposure control 2. Adjustment of the mA and/or kV according to patient size 3. Use of iterative reconstruction technique Electronically signed by: Deondre Estrada MD (09/27/2018 3:46 PM) [facility]
[2018-09-27 16:11] LABS: HEMOGLOBIN A1C 10.7 % (4.8-5.6)
--- NOTE | 2018-09-27 17:37 | PDOC ---
PULMONARY PROGRESS NOTES Vitals Vital Signs Date Time Temp Pulse Resp B/P (MAP) Pulse Ox O2 Delivery O2 Flow Rate FiO2 09/27/18 16:00 98.3 103 15 123/68 (86) 90 Room Air 98.3 09/26/18 18:30 3.0 Lungs: Clear Skin: Dry Labs Laboratory Tests Test 09/26/18 16:15 09/26/18 16:40 09/26/18 17:00 09/26/18 17:07 White Blood Count 10.3 x10^3/uL (4.0-11.0) Red Blood Count 4.95 x10^6/uL (4.30-5.70) Hemoglobin 14.1 g/dL (13.0-17.5) Hematocrit 44.5 % (39.0-53.0) Mean Corpuscular Volume 90 fL (79-100) Mean Corpuscular Hemoglobin 29 pg (25-35) Mean Corpuscular Hemoglobin Concent 32 g/dL (31-37) Red Cell Distribution Width 15.4 % (11.5-14.5) Platelet Count 316 x10^3/uL (140-400) Neutrophils (%) (Auto) 80 % (31-73) Lymphocytes (%) (Auto) 13 % (24-48) Monocytes (%) (Auto) 7 % (0-9) Eosinophils (%) (Auto) 0 % (0-3) Basophils (%) (Auto) 0 % (0-3) Neutrophils # (Auto) 8.3 x10^3uL (1.8-7.7) Lymphocytes # (Auto) 1.3 x10^3/uL (1.0-4.8) Monocytes # (Auto) 0.7 x10^3/uL (0.0-1.1) Eosinophils # (Auto) 0.0 x10^3/uL (0.0-0.7) Basophils # (Auto) 0.0 x10^3/uL (0.0-0.2) Prothrombin Time 14.6 SEC (11.7-14.0) Prothromb Time International Ratio 1.2 (0.8-1.1) Sodium Level 144 mmol/L (136-145) Potassium Level 5.6 mmol/L (3.5-5.1) Chloride Level 101 mmol/L (98-107) Carbon Dioxide Level 20 mmol/L (21-32) Anion Gap 23 (6-14) Blood Urea Nitrogen 80 mg/dL (8-26) Creatinine 4.2 mg/dL (0.7-1.3) Estimated GFR (Cockcroft-Gault) 13.6 BUN/Creatinine Ratio 19 (6-20) Glucose Level 1010 mg/dL (70-99) Hemoglobin A1c 10.7 % (4.8-5.6) Lactic Acid Level 6.8 mmol/L (0.4-2.0) Calcium Level 11.2 mg/dL (8.5-10.1) Magnesium Level 3.0 mg/dL (1.8-2.4) Total Bilirubin 0.8 mg/dL (0.2-1.0) Aspartate Amino Transf (AST/SGOT) 9 U/L (15-37) Alanine Aminotransferase (ALT/SGPT) 18 U/L (16-63) Alkaline Phosphatase 90 U/L (46-116) Total Protein 7.7 g/dL (6.4-8.2) Albumin 3.7 g/dL (3.4-5.0) Albumin/Globulin Ratio 0.9 (1.0-1.7) O2 Saturation 98 % (92-99) Arterial Blood pH 7.38 (7.35-7.45) Arterial Blood pCO2 at Patient Temp 32 mmHg (35-46) Arterial Blood pO2 at Patient Temp 149 mmHg (65-108) Arterial Blood HCO3 19 mmol/L (21-28) Arterial Blood Base Excess -5 mmol/L (-3-3) FiO2 28 Ammonia < 10 mcmol/L (11-34) Bedside Troponin I 0.01 ng/ml (<0.08) Test 09/26/18 17:10 09/26/18 19:43 09/26/18 19:50 09/26/18 21:28 Urine Collection Type Unknown Urine Color Yellow Urine Clarity Turbid Urine pH 5.5 Urine Specific [place] 1.020 Urine Protein 100 mg/dL (NEG-TRACE) Urine Glucose (UA) >=1000 mg/dL (NEG) Urine Ketones (Stick) Trace mg/dL (NEG) Urine Blood Large (NEG) Urine Nitrite Negative (NEG) Urine Bilirubin Negative (NEG) Urine Urobilinogen Dipstick 0.2 mg/dL (0.2 mg/dL) Urine Leukocyte Esterase Large (NEG) Urine RBC 11-20 /HPF (0-2) Urine WBC Tntc /HPF (0-4) Urine Squamous Epithelial Cells None /LPF Urine Bacteria Many /HPF (0-FEW) Glucose (Fingerstick) 594 mg/dL (70-99) 354 mg/dL (70-99) Sodium Level 153 mmol/L (136-145) Potassium Level 3.9 mmol/L (3.5-5.1) Chloride Level 114 mmol/L (98-107) Carbon Dioxide Level 15 mmol/L (21-32) Anion Gap 24 (6-14) Blood Urea Nitrogen 77 mg/dL (8-26) Creatinine 3.5 mg/dL (0.7-1.3) Estimated GFR (Cockcroft-Gault) 16.8 Glucose Level 684 mg/dL (70-99) Lactic Acid Level 5.9 mmol/L (0.4-2.0) Calcium Level 10.4 mg/dL (8.5-10.1) Phosphorus Level 3.7 mg/dL (2.6-4.7) Magnesium Level 2.9 mg/dL (1.8-2.4) Total Bilirubin 0.5 mg/dL (0.2-1.0) Direct Bilirubin 0.2 mg/dL (0.0-0.2) Aspartate Amino Transf (AST/SGOT) 13 U/L (15-37) Alanine Aminotransferase (ALT/SGPT) 15 U/L (16-63) Alkaline Phosphatase 85 U/L (46-116) Total Protein 8.0 g/dL (6.4-8.2) Albumin 3.3 g/dL (3.4-5.0) Lipase 522 U/L (73-393) Test 09/26/18 22:38 09/26/18 23:34 09/27/18 00:47 09/27/18 02:16 Glucose (Fingerstick) 287 mg/dL (70-99) 229 mg/dL (70-99) 131 mg/dL (70-99) 65 mg/dL (70-99) Test 09/27/18 02:35 09/27/18 03:02 09/27/18 05:04 09/27/18 08:30 Sodium Level 159 mmol/L (136-145) 156 mmol/L (136-145) Potassium Level 3.5 mmol/L (3.5-5.1) 3.9 mmol/L (3.5-5.1) Chloride Level 123 mmol/L (98-107) 121 mmol/L (98-107) Carbon Dioxide Level 24 mmol/L (21-32) 20 mmol/L (21-32) Anion Gap 12 (6-14) 15 (6-14) Blood Urea Nitrogen 62 mg/dL (8-26) 59 mg/dL (8-26) Creatinine 2.6 mg/dL (0.7-1.3) 2.5 mg/dL (0.7-1.3) Estimated GFR (Cockcroft-Gault) 23.7 24.8 Glucose Level 139 mg/dL (70-99) 266 mg/dL (70-99) Calcium Level 9.6 mg/dL (8.5-10.1) 9.7 mg/dL (8.5-10.1) Phosphorus Level 2.3 mg/dL (2.6-4.7) 3.0 mg/dL (2.6-4.7) Magnesium Level 2.3 mg/dL (1.8-2.4) 2.5 mg/dL (1.8-2.4) Glucose (Fingerstick) 118 mg/dL (70-99) 166 mg/dL (70-99) Test 09/27/18 08:45 09/27/18 10:19 09/27/18 12:38 09/27/18 16:31 Glucose (Fingerstick) 217 mg/dL (70-99) 316 mg/dL (70-99) 278 mg/dL (70-99) Lactic Acid Level 1.3 mmol/L (0.4-2.0) Laboratory Tests Test 09/26/18 19:43 09/26/18 19:50 09/26/18 21:28 09/26/18 22:38 Glucose (Fingerstick) 594 mg/dL (70-99) 354 mg/dL (70-99) 287 mg/dL (70-99) Sodium Level 153 mmol/L (136-145) Potassium Level 3.9 mmol/L (3.5-5.1) Chloride Level 114 mmol/L (98-107) Carbon Dioxide Level 15 mmol/L (21-32) Anion Gap 24 (6-14) Blood Urea Nitrogen 77 mg/dL (8-26) Creatinine 3.5 mg/dL (0.7-1.3) Estimated GFR (Cockcroft-Gault) 16.8 Glucose Level 684 mg/dL (70-99) Lactic Acid Level 5.9 mmol/L (0.4-2.0) Calcium Level 10.4 mg/dL (8.5-10.1) Phosphorus Level 3.7 mg/dL (2.6-4.7) Magnesium Level 2.9 mg/dL (1.8-2.4) Total Bilirubin 0.5 mg/dL (0.2-1.0) Direct Bilirubin 0.2 mg/dL (0.0-0.2) Aspartate Amino Transf (AST/SGOT) 13 U/L (15-37) Alanine Aminotransferase (ALT/SGPT) 15 U/L (16-63) Alkaline Phosphatase 85 U/L (46-116) Total Protein 8.0 g/dL (6.4-8.2) Albumin 3.3 g/dL (3.4-5.0) Lipase 522 U/L (73-393) Test 09/26/18 23:34 09/27/18 00:47 09/27/18 02:16 09/27/18 02:35 Glucose (Fingerstick) 229 mg/dL (70-99) 131 mg/dL (70-99) 65 mg/dL (70-99) Sodium Level 159 mmol/L (136-145) Potassium Level 3.5 mmol/L (3.5-5.1) Chloride Level 123 mmol/L (98-107) Carbon Dioxide Level 24 mmol/L (21-32) Anion Gap 12 (6-14) Blood Urea Nitrogen 62 mg/dL (8-26) Creatinine 2.6 mg/dL (0.7-1.3) Estimated GFR (Cockcroft-Gault) 23.7 Glucose Level 139 mg/dL (70-99) Calcium Level 9.6 mg/dL (8.5-10.1) Phosphorus Level 2.3 mg/dL (2.6-4.7) Magnesium Level 2.3 mg/dL (1.8-2.4) Test 09/27/18 03:02 09/27/18 05:04 09/27/18 08:30 09/27/18 08:45 Glucose (Fingerstick) 118 mg/dL (70-99) 166 mg/dL (70-99) 217 mg/dL (70-99) Sodium Level 156 mmol/L (136-145) Potassium Level 3.9 mmol/L (3.5-5.1) Chloride Level 121 mmol/L (98-107) Carbon Dioxide Level 20 mmol/L (21-32) Anion Gap 15 (6-14) Blood Urea Nitrogen 59 mg/dL (8-26) Creatinine 2.5 mg/dL (0.7-1.3) Estimated GFR (Cockcroft-Gault) 24.8 Glucose Level 266 mg/dL (70-99) Calcium Level 9.7 mg/dL (8.5-10.1) Phosphorus Level 3.0 mg/dL (2.6-4.7) Magnesium Level 2.5 mg/dL (1.8-2.4) Test 09/27/18 10:19 09/27/18 12:38 09/27/18 16:31 Lactic Acid Level 1.3 mmol/L (0.4-2.0) Glucose (Fingerstick) 316 mg/dL (70-99) 278 mg/dL (70-99) Medications Active Scripts Medications Dose Route/Sig Max Daily Dose Days Date Category Lisinopril 40 Mg Tablet 1 Tab PO DAILY 09/27/18 Reported Impression . NOTE DICTATED WILL PROCEED WITH CT CHEST NO CONTRAST THANKS MELISSA SALGUERO MD Sep 27, 2018 17:37
[2018-09-27] MEDS: LACTOBACILLUS RHAMNOSUS GG 1 CAPSULE. PO SCH (21:08)
[2018-09-27] MEDS: INSULIN GLARGINE 300 UNITS/3 ML INSULN.PEN. SQ SCH (21:14)
--- NOTE | 2018-09-27 21:34 | CONS ---
DATE OF CONSULTATION: 09/27/2018 ATTENDING PHYSICIAN: Sharri Coley DO REASON FOR CONSULTATION: The patient seen in pulmonary consultation at the request of Dr. Coley for abnormal chest x-ray revealing a lung mass. HISTORY OF PRESENT ILLNESS: The patient is an 83-year-old who lives at home with a prior history of dementia. His primary caregiver is his daughter and the family noted yesterday that the patient was slightly more confused. He was unable to walk like he normally does. He was brought to the Emergency Room, was evaluated, had a chest x-ray, which revealed a right-sided lung mass. I was asked to see him in consultation. The patient is awake and gives a relatively adequate history. His daughter gave most of the history. He quit tobacco 25 years ago. There is no history given of hemoptysis. No fever, chills. Significant weight loss, his appetite has been poor. PAST MEDICAL HISTORY: Renal failure, UTI, dementia, type 2 diabetes, hypertension. PAST SURGICAL HISTORY: No recent major surgeries. ALLERGIES: No known drug allergies. MEDICATIONS: List was reviewed. SOCIAL HISTORY: His daughter is his primary caregiver. He quit tobacco 25 years ago. There is no history of alcoholism. REVIEW OF SYSTEMS: As indicated above, otherwise, a 10-point system was reviewed and negative. FAMILY HISTORY: No family history of lung disorders. PHYSICAL EXAMINATION: GENERAL: The patient appeared to be of stated age. He was in no respiratory distress. VITAL SIGNS: Stable. O2 saturation was greater than 92%. HEENT: Eyes, the sclerae were nonicteric. NECK: Jugular venous distention was not elevated. No lymphadenopathy. CHEST: Full expansion. LUNGS: Adequate airway flow with no wheezes. CARDIOVASCULAR: Regular rate and rhythm with S1, S2, no S3. ABDOMEN: Soft, nontender, nondistended. EXTREMITIES: No clubbing, cyanosis or edema. NEUROLOGIC: The patient was awake, alert, following commands. A detailed neuro exam was not performed. LABORATORY DATA: Reviewed. White count was normal. Hemoglobin and hematocrit were noted. Arterial blood gas, pH of 7.38, PaCO2 of 32, PaO2 of 149. INR was 1.2. Electrolytes were deranged. BUN was elevated, creatinine was elevated, glucose level was elevated. IMPRESSION: 1. Abnormal chest x-ray revealing right-sided lung mass. 2. History of tobacco dependence, quit 25 years ago. 3. Suspect chronic obstructive pulmonary disease. 4. [id number] metabolic, possible toxic encephalopathy. 5. Urinary tract infection. 6. Type 2 diabetes. 7. Acute on chronic renal failure. PLAN: 1. We will obtain CT chest with no contrast. I will make further recommendations depending on the finding, I discussed the above with the family. 2. Continue current antibiotics. 3. Monitor blood sugar level. 4. DVT and GI prophylaxis. I do appreciate the privilege in sharing in the patient's care. MELISSA SALGUERO MD DR: ROBERTO/ines JOB#: [id number] / [id number]
[2018-09-28 03:00] VITALS: BP 119/66
[2018-09-28 04:03] LABS: BASO # 0.1 x10^3/uL (0.0-0.2); BASO % 1 % (0-3); EOS # 0.3 x10^3/uL (0.0-0.7); EOS % 2 % (0-3); HEMOGLOBIN 12.3 g/dL (13.0-17.5); LYMPH # 1.8 x10^3/uL (1.0-4.8); LYMPH % 16 % (24-48); MEAN CORPUSCULAR HEMOGLOBIN 28 pg (25-35); MEAN CORPUSCULAR HGB CONC 33 g/dL (31-37); MEAN CORPUSCULAR VOLUME 87 fL (79-100); MONO # 0.6 x10^3/uL (0.0-1.1); MONO % 5 % (0-9); NEUT # 8.8 x10^3uL (1.8-7.7); NEUT % 77 % (31-73); PLATELET COUNT 204 x10^3/uL (140-400); RED BLOOD COUNT 4.39 x10^6/uL (4.30-5.70); WHITE BLOOD COUNT 11.5 x10^3/uL (4.0-11.0)
[2018-09-28] MEDS: PIPERACILLIN/TAZOBACTAM 2.25 GM in IV NORMAL SALINE 50ML 50 ML IV SCH ×3 (04:51→22:44)
[2018-09-28 05:01] LABS: CREATININE 1.9 mg/dL (0.7-1.3); POTASSIUM 3.8 mmol/L (3.5-5.1)
[2018-09-28 07:00] VITALS: BP 127/76
[2018-09-28] MEDS: INSULIN LISPRO 300 UNITS/3 ML INSULN.PEN. SQ SCH ×3 (08:00→17:00)
--- NOTE | 2018-09-28 08:29 | PDOC ---
Infectious Disease Note Subjective: Subjective Pt is without complaints says feels ok somewhat confused comfortable no new issues per rn ROS: ROS Negative except for above. Vital Signs: Vital Signs Vital Signs Date Time Temp Pulse Resp B/P (MAP) Pulse Ox O2 Delivery O2 Flow Rate FiO2 09/28/18 07:00 97.5 95 20 127/76 (93) 94 Room Air 97.5 Physical Exam: PHYSICAL EXAM GENERAL: Alert, awake, smiling male in no acute distress, lying comfortably in bed, pleasantly confused. HEENT: Normocephalic, atraumatic, anicteric. No thrush. Oral mucosa moist. NECK: Supple. JVD. LUNGS: Clear bilaterally. No wheezing. HEART: S1, S2 with no gallops or murmurs. ABDOMEN: Soft, nontender, nondistended. GENITOURINARY: Yun in place. NEUROLOGIC: Alert, awake, pleasantly confused baseline per daughter at bedside. PSYCHIATRIC: Normal affect. DERMATOLOGIC: Warm, dry. No generalized rash. Medications: Inpatient Meds: Current Medications Medications (Trade) Dose Ordered Sig/Tiara Start Time Stop Time Status Last Admin Dose Admin Dextrose (Dextrose 50%-Water Syringe) 12.5 gm PRN Q15MIN PRN 09/27/18 09:15 Glyburide (Diabeta) 1.25 mg BIDWMEALS 09/27/18 11:30 09/27/18 17:33 1.25 MG Insulin Glargine (Lantus) 12 units QHS 09/27/18 21:00 09/27/18 21:14 12 UNITS Insulin Human Lispro (HumaLOG) 0-9 UNITS TIDWMEALS 09/27/18 12:00 09/27/18 17:38 7 UNITS Insulin Human Regular 150 ml @ 0 mls/hr 1X ONCE 09/26/18 17:30 09/26/18 17:31 DC 09/26/18 18:31 19 MLS/HR Insulin Human Regular (HumuLIN R VIAL) 10 unit 1X ONCE 09/26/18 17:30 09/26/18 17:31 DC 09/26/18 18:28 10 UNIT Insulin Human Regular 150 unit/ Sodium Chloride 151.5 ml @ 0 mls/hr CONT PRN PRN 09/26/18 21:15 09/27/18 15:56 DC Lactobacillus Rhamnosus (Culturelle) 1 cap BID 09/27/18 21:00 09/27/18 21:08 1 CAP Piperacillin Sod/ Tazobactam Sod 2.25 gm/Sodium Chloride 50 ml @ 100 mls/hr Q8HRS 09/27/18 06:00 09/28/18 04:51 100 MLS/HR Piperacillin Sod/ Tazobactam Sod 3.375 gm/Sodium Chloride 50 ml @ 100 mls/hr ONCE ONCE 09/26/18 17:45 09/26/18 18:14 DC 09/26/18 17:42 100 MLS/HR Potassium Chloride/Water 100 ml @ 100 mls/hr PRN Q1HR PRN 09/26/18 21:15 09/27/18 15:56 DC Sodium Chloride 1,000 ml @ 125 mls/hr 1X ONCE 09/27/18 04:15 09/27/18 12:14 DC 09/27/18 05:02 125 MLS/HR Vancomycin HCl 1.5 gm/Sodium Chloride 500 ml @ 250 mls/hr 1X ONCE 09/26/18 18:15 09/26/18 20:14 DC 09/26/18 18:49 250 MLS/HR Labs: Lab Laboratory Tests Test 09/27/18 08:30 09/27/18 08:45 09/27/18 10:19 09/27/18 12:38 Sodium Level 156 mmol/L (136-145) Potassium Level 3.9 mmol/L (3.5-5.1) Chloride Level 121 mmol/L (98-107) Carbon Dioxide Level 20 mmol/L (21-32) Anion Gap 15 (6-14) Blood Urea Nitrogen 59 mg/dL (8-26) Creatinine 2.5 mg/dL (0.7-1.3) Estimated GFR (Cockcroft-Gault) 24.8 Glucose Level 266 mg/dL (70-99) Calcium Level 9.7 mg/dL (8.5-10.1) Phosphorus Level 3.0 mg/dL (2.6-4.7) Magnesium Level 2.5 mg/dL (1.8-2.4) Glucose (Fingerstick) 217 mg/dL (70-99) 316 mg/dL (70-99) Lactic Acid Level 1.3 mmol/L (0.4-2.0) Test 09/27/18 16:31 09/27/18 20:32 09/28/18 03:15 09/28/18 07:31 Glucose (Fingerstick) 278 mg/dL (70-99) 227 mg/dL (70-99) 160 mg/dL (70-99) White Blood Count 11.5 x10^3/uL (4.0-11.0) Red Blood Count 4.39 x10^6/uL (4.30-5.70) Hemoglobin 12.3 g/dL (13.0-17.5) Hematocrit 38.0 % (39.0-53.0) Mean Corpuscular Volume 87 fL (79-100) Mean Corpuscular Hemoglobin 28 pg (25-35) Mean Corpuscular Hemoglobin Concent 33 g/dL (31-37) Red Cell Distribution Width 15.0 % (11.5-14.5) Platelet Count 204 x10^3/uL (140-400) Neutrophils (%) (Auto) 77 % (31-73) Lymphocytes (%) (Auto) 16 % (24-48) Monocytes (%) (Auto) 5 % (0-9) Eosinophils (%) (Auto) 2 % (0-3) Basophils (%) (Auto) 1 % (0-3) Neutrophils # (Auto) 8.8 x10^3uL (1.8-7.7) Lymphocytes # (Auto) 1.8 x10^3/uL (1.0-4.8) Monocytes # (Auto) 0.6 x10^3/uL (0.0-1.1) Eosinophils # (Auto) 0.3 x10^3/uL (0.0-0.7) Basophils # (Auto) 0.1 x10^3/uL (0.0-0.2) Sodium Level 150 mmol/L (136-145) Potassium Level 3.8 mmol/L (3.5-5.1) Chloride Level 116 mmol/L (98-107) Carbon Dioxide Level 18 mmol/L (21-32) Anion Gap 16 (6-14) Blood Urea Nitrogen 40 mg/dL (8-26) Creatinine 1.9 mg/dL (0.7-1.3) Estimated GFR (Cockcroft-Gault) 34.0 Glucose Level 178 mg/dL (70-99) Calcium Level 9.0 mg/dL (8.5-10.1) Micro BC neg so far Objective: Assessment: 1. Sepsis source Likely with Urinary tract infection. 2. Severe hyperglycemia. 3. Lactic acidosis, multifactorial. 4. Renal failure. 5. Weight loss with right lung mass. 6. Hyponatremia. 7. Metabolic acidosis, improving. Plan: Plan of Care 1. Continue empiric Zosyn, renal dosing. 2. Follow up urine culture and blood culture. 3. Continue supportive care. 4. D/W Nursing staff 5. D/W Daughter MATEO RUVALCABA MD Sep 28, 2018 08:29
[2018-09-28] MEDS: glyBURIDE 1.25 MG TABLET PO SCH ×2 (08:31→17:40)
[2018-09-28] MEDS: LACTOBACILLUS RHAMNOSUS GG 1 CAPSULE. PO SCH ×2 (08:31→21:29)
--- NOTE | 2018-09-28 09:07 | PDOC ---
PULMONARY PROGRESS NOTES Subjective PT NOT MORE SOA NO DISTRESS Vitals Vital Signs Date Time Temp Pulse Resp B/P (MAP) Pulse Ox O2 Delivery O2 Flow Rate FiO2 09/28/18 07:00 97.5 95 20 127/76 (93) 94 Room Air 97.5 ROS: No Nausea, No Chest Pain, No Abdominal Pain, No Increase Cough Lungs: Clear Cardiovascular: S1, S2 Abdomen: Soft Neuro Exam: Alert Extremities: No Edema Skin: Warm, Dry Labs Laboratory Tests Test 09/26/18 16:15 09/26/18 16:40 09/26/18 17:00 09/26/18 17:07 White Blood Count 10.3 x10^3/uL (4.0-11.0) Red Blood Count 4.95 x10^6/uL (4.30-5.70) Hemoglobin 14.1 g/dL (13.0-17.5) Hematocrit 44.5 % (39.0-53.0) Mean Corpuscular Volume 90 fL (79-100) Mean Corpuscular Hemoglobin 29 pg (25-35) Mean Corpuscular Hemoglobin Concent 32 g/dL (31-37) Red Cell Distribution Width 15.4 % (11.5-14.5) Platelet Count 316 x10^3/uL (140-400) Neutrophils (%) (Auto) 80 % (31-73) Lymphocytes (%) (Auto) 13 % (24-48) Monocytes (%) (Auto) 7 % (0-9) Eosinophils (%) (Auto) 0 % (0-3) Basophils (%) (Auto) 0 % (0-3) Neutrophils # (Auto) 8.3 x10^3uL (1.8-7.7) Lymphocytes # (Auto) 1.3 x10^3/uL (1.0-4.8) Monocytes # (Auto) 0.7 x10^3/uL (0.0-1.1) Eosinophils # (Auto) 0.0 x10^3/uL (0.0-0.7) Basophils # (Auto) 0.0 x10^3/uL (0.0-0.2) Prothrombin Time 14.6 SEC (11.7-14.0) Prothromb Time International Ratio 1.2 (0.8-1.1) Sodium Level 144 mmol/L (136-145) Potassium Level 5.6 mmol/L (3.5-5.1) Chloride Level 101 mmol/L (98-107) Carbon Dioxide Level 20 mmol/L (21-32) Anion Gap 23 (6-14) Blood Urea Nitrogen 80 mg/dL (8-26) Creatinine 4.2 mg/dL (0.7-1.3) Estimated GFR (Cockcroft-Gault) 13.6 BUN/Creatinine Ratio 19 (6-20) Glucose Level 1010 mg/dL (70-99) Hemoglobin A1c 10.7 % (4.8-5.6) Lactic Acid Level 6.8 mmol/L (0.4-2.0) Calcium Level 11.2 mg/dL (8.5-10.1) Magnesium Level 3.0 mg/dL (1.8-2.4) Total Bilirubin 0.8 mg/dL (0.2-1.0) Aspartate Amino Transf (AST/SGOT) 9 U/L (15-37) Alanine Aminotransferase (ALT/SGPT) 18 U/L (16-63) Alkaline Phosphatase 90 U/L (46-116) Total Protein 7.7 g/dL (6.4-8.2) Albumin 3.7 g/dL (3.4-5.0) Albumin/Globulin Ratio 0.9 (1.0-1.7) O2 Saturation 98 % (92-99) Arterial Blood pH 7.38 (7.35-7.45) Arterial Blood pCO2 at Patient Temp 32 mmHg (35-46) Arterial Blood pO2 at Patient Temp 149 mmHg (65-108) Arterial Blood HCO3 19 mmol/L (21-28) Arterial Blood Base Excess -5 mmol/L (-3-3) FiO2 28 Ammonia < 10 mcmol/L (11-34) Bedside Troponin I 0.01 ng/ml (<0.08) Test 09/26/18 17:10 09/26/18 19:43 09/26/18 19:50 09/26/18 21:28 Urine Collection Type Unknown Urine Color Yellow Urine Clarity Turbid Urine pH 5.5 Urine Specific [place] 1.020 Urine Protein 100 mg/dL (NEG-TRACE) Urine Glucose (UA) >=1000 mg/dL (NEG) Urine Ketones (Stick) Trace mg/dL (NEG) Urine Blood Large (NEG) Urine Nitrite Negative (NEG) Urine Bilirubin Negative (NEG) Urine Urobilinogen Dipstick 0.2 mg/dL (0.2 mg/dL) Urine Leukocyte Esterase Large (NEG) Urine RBC 11-20 /HPF (0-2) Urine WBC Tntc /HPF (0-4) Urine Squamous Epithelial Cells None /LPF Urine Bacteria Many /HPF (0-FEW) Glucose (Fingerstick) 594 mg/dL (70-99) 354 mg/dL (70-99) Sodium Level 153 mmol/L (136-145) Potassium Level 3.9 mmol/L (3.5-5.1) Chloride Level 114 mmol/L (98-107) Carbon Dioxide Level 15 mmol/L (21-32) Anion Gap 24 (6-14) Blood Urea Nitrogen 77 mg/dL (8-26) Creatinine 3.5 mg/dL (0.7-1.3) Estimated GFR (Cockcroft-Gault) 16.8 Glucose Level 684 mg/dL (70-99) Lactic Acid Level 5.9 mmol/L (0.4-2.0) Calcium Level 10.4 mg/dL (8.5-10.1) Phosphorus Level 3.7 mg/dL (2.6-4.7) Magnesium Level 2.9 mg/dL (1.8-2.4) Total Bilirubin 0.5 mg/dL (0.2-1.0) Direct Bilirubin 0.2 mg/dL (0.0-0.2) Aspartate Amino Transf (AST/SGOT) 13 U/L (15-37) Alanine Aminotransferase (ALT/SGPT) 15 U/L (16-63) Alkaline Phosphatase 85 U/L (46-116) Total Protein 8.0 g/dL (6.4-8.2) Albumin 3.3 g/dL (3.4-5.0) Lipase 522 U/L (73-393) Test 09/26/18 22:38 09/26/18 23:34 09/27/18 00:47 09/27/18 02:16 Glucose (Fingerstick) 287 mg/dL (70-99) 229 mg/dL (70-99) 131 mg/dL (70-99) 65 mg/dL (70-99) Test 09/27/18 02:35 09/27/18 03:02 09/27/18 05:04 09/27/18 08:30 Sodium Level 159 mmol/L (136-145) 156 mmol/L (136-145) Potassium Level 3.5 mmol/L (3.5-5.1) 3.9 mmol/L (3.5-5.1) Chloride Level 123 mmol/L (98-107) 121 mmol/L (98-107) Carbon Dioxide Level 24 mmol/L (21-32) 20 mmol/L (21-32) Anion Gap 12 (6-14) 15 (6-14) Blood Urea Nitrogen 62 mg/dL (8-26) 59 mg/dL (8-26) Creatinine 2.6 mg/dL (0.7-1.3) 2.5 mg/dL (0.7-1.3) Estimated GFR (Cockcroft-Gault) 23.7 24.8 Glucose Level 139 mg/dL (70-99) 266 mg/dL (70-99) Calcium Level 9.6 mg/dL (8.5-10.1) 9.7 mg/dL (8.5-10.1) Phosphorus Level 2.3 mg/dL (2.6-4.7) 3.0 mg/dL (2.6-4.7) Magnesium Level 2.3 mg/dL (1.8-2.4) 2.5 mg/dL (1.8-2.4) Glucose (Fingerstick) 118 mg/dL (70-99) 166 mg/dL (70-99) Test 09/27/18 08:45 09/27/18 10:19 09/27/18 12:38 09/27/18 16:31 Glucose (Fingerstick) 217 mg/dL (70-99) 316 mg/dL (70-99) 278 mg/dL (70-99) Lactic Acid Level 1.3 mmol/L (0.4-2.0) Test 09/27/18 20:32 09/28/18 03:15 09/28/18 07:31 Glucose (Fingerstick) 227 mg/dL (70-99) 160 mg/dL (70-99) White Blood Count 11.5 x10^3/uL (4.0-11.0) Red Blood Count 4.39 x10^6/uL (4.30-5.70) Hemoglobin 12.3 g/dL (13.0-17.5) Hematocrit 38.0 % (39.0-53.0) Mean Corpuscular Volume 87 fL (79-100) Mean Corpuscular Hemoglobin 28 pg (25-35) Mean Corpuscular Hemoglobin Concent 33 g/dL (31-37) Red Cell Distribution Width 15.0 % (11.5-14.5) Platelet Count 204 x10^3/uL (140-400) Neutrophils (%) (Auto) 77 % (31-73) Lymphocytes (%) (Auto) 16 % (24-48) Monocytes (%) (Auto) 5 % (0-9) Eosinophils (%) (Auto) 2 % (0-3) Basophils (%) (Auto) 1 % (0-3) Neutrophils # (Auto) 8.8 x10^3uL (1.8-7.7) Lymphocytes # (Auto) 1.8 x10^3/uL (1.0-4.8) Monocytes # (Auto) 0.6 x10^3/uL (0.0-1.1) Eosinophils # (Auto) 0.3 x10^3/uL (0.0-0.7) Basophils # (Auto) 0.1 x10^3/uL (0.0-0.2) Sodium Level 150 mmol/L (136-145) Potassium Level 3.8 mmol/L (3.5-5.1) Chloride Level 116 mmol/L (98-107) Carbon Dioxide Level 18 mmol/L (21-32) Anion Gap 16 (6-14) Blood Urea Nitrogen 40 mg/dL (8-26) Creatinine 1.9 mg/dL (0.7-1.3) Estimated GFR (Cockcroft-Gault) 34.0 Glucose Level 178 mg/dL (70-99) Calcium Level 9.0 mg/dL (8.5-10.1) Laboratory Tests Test 09/27/18 10:19 09/27/18 12:38 09/27/18 16:31 09/27/18 20:32 Lactic Acid Level 1.3 mmol/L (0.4-2.0) Glucose (Fingerstick) 316 mg/dL (70-99) 278 mg/dL (70-99) 227 mg/dL (70-99) Test 09/28/18 03:15 09/28/18 07:31 White Blood Count 11.5 x10^3/uL (4.0-11.0) Red Blood Count 4.39 x10^6/uL (4.30-5.70) Hemoglobin 12.3 g/dL (13.0-17.5) Hematocrit 38.0 % (39.0-53.0) Mean Corpuscular Volume 87 fL (79-100) Mean Corpuscular Hemoglobin 28 pg (25-35) Mean Corpuscular Hemoglobin Concent 33 g/dL (31-37) Red Cell Distribution Width 15.0 % (11.5-14.5) Platelet Count 204 x10^3/uL (140-400) Neutrophils (%) (Auto) 77 % (31-73) Lymphocytes (%) (Auto) 16 % (24-48) Monocytes (%) (Auto) 5 % (0-9) Eosinophils (%) (Auto) 2 % (0-3) Basophils (%) (Auto) 1 % (0-3) Neutrophils # (Auto) 8.8 x10^3uL (1.8-7.7) Lymphocytes # (Auto) 1.8 x10^3/uL (1.0-4.8) Monocytes # (Auto) 0.6 x10^3/uL (0.0-1.1) Eosinophils # (Auto) 0.3 x10^3/uL (0.0-0.7) Basophils # (Auto) 0.1 x10^3/uL (0.0-0.2) Sodium Level 150 mmol/L (136-145) Potassium Level 3.8 mmol/L (3.5-5.1) Chloride Level 116 mmol/L (98-107) Carbon Dioxide Level 18 mmol/L (21-32) Anion Gap 16 (6-14) Blood Urea Nitrogen 40 mg/dL (8-26) Creatinine 1.9 mg/dL (0.7-1.3) Estimated GFR (Cockcroft-Gault) 34.0 Glucose Level 178 mg/dL (70-99) Calcium Level 9.0 mg/dL (8.5-10.1) Glucose (Fingerstick) 160 mg/dL (70-99) Medications Active Scripts Medications Dose Route/Sig Max Daily Dose Days Date Category Lisinopril 40 Mg Tablet 1 Tab PO DAILY 09/27/18 Reported Impression . IMPRESSION: 1. Abnormal chest x-ray revealing right-sided lung mass. 2. History of tobacco dependence, quit 25 years ago. 3. Suspect chronic obstructive pulmonary disease. 4. [id number] metabolic, possible toxic encephalopathy. 5. Urinary tract infection. 6. Type 2 diabetes. 7. Acute on chronic renal failure. CT CHEST IMPRESSION: 1. Peripheral right lung mass centered along the lateral margin of the minor fissure which demonstrates heterogeneous low density internally. Diagnostic considerations include a pulmonary hamartoma, mucinous or necrotic neoplasm or liposarcoma. Correlation with any older chest imaging if available would be most helpful in evaluating stability. 2. Coronary artery calcifications. Plan . REVIEWED THE CT IT APPEARS BENIGN D/W DAUGHTER GAVE HER OPTIONS OF FNA OR CLOSE WATCH FAMILY WISHES TO PROCEED WITH REPEAT CT OUTPT IN 3-4 MONTHS CONTINUE THE SAME FOR NOW MELISSA SALGUERO MD Sep 28, 2018 09:07
--- NOTE | 2018-09-28 09:13 | PDOC ---
SUBJECTIVE Subjective S: Doing well, had CT yesterday O: Physical exam: Gen.: elderly man, well-developed, resting in bed Psychiatric: Pleasant mood and affect Labs: 11.5 wbc, 12.3 Hb, plt 264 Rads: CT chest noncontrast 3.6 cm right lung mass Assessment and Plan: 83-year-old man admitted with weakness and anorexia with history of dementia, DM and UTI, with a R lung mass, he does not recall ever having a prior right lung mass and no prior films available for comparison. UTI: on Abx Renal insufficiency: Cr improving Right lung mass: CT chest showed right lung mass, indeterm?, will be interested in Dr. Isaacs's opinion, for potential biopsy DM: Per primary Thank you kindly and please do not hesitate to call with questions. OBJECTIVE Vital Signs Vital Signs Date Time Temp Pulse Resp B/P (MAP) Pulse Ox O2 Delivery O2 Flow Rate FiO2 09/28/18 07:00 97.5 95 20 127/76 (93) 94 Room Air 97.5 09/28/18 03:00 97.9 63 18 119/66 (83) 96 Room Air 97.9 09/27/18 23:00 98.1 100 18 125/68 (87) 92 Room Air 98.1 09/27/18 20:00 Room Air 09/27/18 19:00 98.1 103 18 120/68 (85) 96 Room Air 98.1 09/27/18 16:00 98.3 103 15 123/68 (86) 90 Room Air 98.3 09/27/18 12:00 98.3 106 21 115/61 (79) 97 Room Air 98.3 I & O Intake and Output 09/28/18 07:00 Intake Total 1580 ml Output Total 1225 ml Balance 355 ml Intake Oral 1580 ml Output Urine Total 1225 ml # Bowel Movements 3 COMMENT Lab Laboratory Tests Test 09/27/18 10:19 09/27/18 12:38 09/27/18 16:31 09/27/18 20:32 Lactic Acid Level 1.3 mmol/L (0.4-2.0) Glucose (Fingerstick) 316 mg/dL (70-99) 278 mg/dL (70-99) 227 mg/dL (70-99) Test 09/28/18 03:15 6/18/19 07:31 White Blood Count 11.5 x10^3/uL (4.0-11.0) Red Blood Count 4.39 x10^6/uL (4.30-5.70) Hemoglobin 12.3 g/dL (13.0-17.5) Hematocrit 38.0 % (39.0-53.0) Mean Corpuscular Volume 87 fL (79-100) Mean Corpuscular Hemoglobin 28 pg (25-35) Mean Corpuscular Hemoglobin Concent 33 g/dL (31-37) Red Cell Distribution Width 15.0 % (11.5-14.5) Platelet Count 204 x10^3/uL (140-400) Neutrophils (%) (Auto) 77 % (31-73) Lymphocytes (%) (Auto) 16 % (24-48) Monocytes (%) (Auto) 5 % (0-9) Eosinophils (%) (Auto) 2 % (0-3) Basophils (%) (Auto) 1 % (0-3) Neutrophils # (Auto) 8.8 x10^3uL (1.8-7.7) Lymphocytes # (Auto) 1.8 x10^3/uL (1.0-4.8) Monocytes # (Auto) 0.6 x10^3/uL (0.0-1.1) Eosinophils # (Auto) 0.3 x10^3/uL (0.0-0.7) Basophils # (Auto) 0.1 x10^3/uL (0.0-0.2) Sodium Level 150 mmol/L (136-145) Potassium Level 3.8 mmol/L (3.5-5.1) Chloride Level 116 mmol/L (98-107) Carbon Dioxide Level 18 mmol/L (21-32) Anion Gap 16 (6-14) Blood Urea Nitrogen 40 mg/dL (8-26) Creatinine 1.9 mg/dL (0.7-1.3) Estimated GFR (Cockcroft-Gault) 34.0 Glucose Level 178 mg/dL (70-99) Calcium Level 9.0 mg/dL (8.5-10.1) Glucose (Fingerstick) 160 mg/dL (70-99) Nutrition Consultation Dietary Evaluation: Recommendations by RD: Decrease Calorie Intake, Protein supplementation Comments: REC continue w/ADA diet as ordered, honor food preferences, and provide snacks as requested REC glucerna TID (strawberry or butter pecan) Expected Outcomes/Goals: PO intake to meet >75% est needs Malnutrition Findings: Body Fat Depletion (Non Severe: Mild Depletion Weight Status: Appropriate GABBY ADDISON MD Sep 28, 2018 09:13
--- NOTE | 2018-09-28 10:56 | PDOC ---
SUBJECTIVE ROS BNo complaints, propped up in bed, eating Breakfast , Family at bedside , No complaints or concerns voiced OBJECTIVE Vital Signs Vital Signs Date Time Temp Pulse Resp B/P (MAP) Pulse Ox O2 Delivery O2 Flow Rate FiO2 09/28/18 08:00 Room Air 09/28/18 07:00 97.5 95 20 127/76 (93) 94 97.5 I & 0 Intake and Output 09/28/18 07:00 Intake Total 1580 ml Output Total 1225 ml Balance 355 ml Intake Oral 1580 ml Output Urine Total 1225 ml # Bowel Movements 3 PHYSICAL EXAM Physical Exam GENERAL: no acute distress,bed, confused. HEENT: Oral mucosa moist. NECK: Supple. JVD. LUNGS: Clear bilaterally. Non labored HEART: S1, S2 with no gallops or murmurs. ABDOMEN: Soft, nontender, nondistended. GENITOURINARY: Yun in place. NEUROLOGIC: Alert, awake, confused baseline SKIN : Warm, dry. No generalized rash DIAGNOSIS/ASSESSMENT Assessment & Plan HANNA- Suspect due to Dehydration, Poor PO intake , UTI Non Oliguric Renal function Improving Baseline unknown Urinary tract infection- On Abx per ID . Severe hyperglycemia- at presentation Glucose 1010 Primary managing Lactic acidosis, multifactorial. Weight loss with right lung mass Will Likely need Ct scan - Can be done without Contrast due to HANNA Hypernatremia -Encourage water intake Metabolic acidosis- Monitor Dw Family at bedside . COMMENT/RELEVANT DATA Meds Current Medications Medications (Trade) Dose Ordered Sig/Tiara Start Time Stop Time Status Last Admin Dose Admin Dextrose (Dextrose 50%-Water Syringe) 12.5 gm PRN Q15MIN PRN 09/27/18 09:15 Glyburide (Diabeta) 1.25 mg BIDWMEALS 09/27/18 11:30 09/28/18 08:31 1.25 MG Insulin Glargine (Lantus) 12 units QHS 09/27/18 21:00 09/27/18 21:14 12 UNITS Insulin Human Lispro (HumaLOG) 0-9 UNITS TIDWMEALS 09/27/18 12:00 09/27/18 17:38 7 UNITS Insulin Human Regular 150 ml @ 0 mls/hr 1X ONCE 09/26/18 17:30 09/26/18 17:31 DC 09/26/18 18:31 19 MLS/HR Insulin Human Regular (HumuLIN R VIAL) 10 unit 1X ONCE 09/26/18 17:30 09/26/18 17:31 DC 09/26/18 18:28 10 UNIT Insulin Human Regular 150 unit/ Sodium Chloride 151.5 ml @ 0 mls/hr CONT PRN PRN 09/26/18 21:15 09/27/18 15:56 DC Lactobacillus Rhamnosus (Culturelle) 1 cap BID 09/27/18 21:00 09/28/18 08:31 1 CAP Piperacillin Sod/ Tazobactam Sod 2.25 gm/Sodium Chloride 50 ml @ 100 mls/hr Q8HRS 09/27/18 06:00 09/28/18 04:51 100 MLS/HR Piperacillin Sod/ Tazobactam Sod 3.375 gm/Sodium Chloride 50 ml @ 100 mls/hr ONCE ONCE 09/26/18 17:45 09/26/18 18:14 DC 09/26/18 17:42 100 MLS/HR Potassium Chloride/Water 100 ml @ 100 mls/hr PRN Q1HR PRN 09/26/18 21:15 09/27/18 15:56 DC Sodium Chloride 1,000 ml @ 125 mls/hr 1X ONCE 09/27/18 04:15 09/27/18 12:14 DC 09/27/18 05:02 125 MLS/HR Vancomycin HCl 1.5 gm/Sodium Chloride 500 ml @ 250 mls/hr 1X ONCE 09/26/18 18:15 09/26/18 20:14 DC 09/26/18 18:49 250 MLS/HR Lab Laboratory Tests Test 09/27/18 12:38 09/27/18 16:31 09/27/18 20:32 09/28/18 03:15 Glucose (Fingerstick) 316 mg/dL (70-99) 278 mg/dL (70-99) 227 mg/dL (70-99) White Blood Count 11.5 x10^3/uL (4.0-11.0) Red Blood Count 4.39 x10^6/uL (4.30-5.70) Hemoglobin 12.3 g/dL (13.0-17.5) Hematocrit 38.0 % (39.0-53.0) Mean Corpuscular Volume 87 fL (79-100) Mean Corpuscular Hemoglobin 28 pg (25-35) Mean Corpuscular Hemoglobin Concent 33 g/dL (31-37) Red Cell Distribution Width 15.0 % (11.5-14.5) Platelet Count 204 x10^3/uL (140-400) Neutrophils (%) (Auto) 77 % (31-73) Lymphocytes (%) (Auto) 16 % (24-48) Monocytes (%) (Auto) 5 % (0-9) Eosinophils (%) (Auto) 2 % (0-3) Basophils (%) (Auto) 1 % (0-3) Neutrophils # (Auto) 8.8 x10^3uL (1.8-7.7) Lymphocytes # (Auto) 1.8 x10^3/uL (1.0-4.8) Monocytes # (Auto) 0.6 x10^3/uL (0.0-1.1) Eosinophils # (Auto) 0.3 x10^3/uL (0.0-0.7) Basophils # (Auto) 0.1 x10^3/uL (0.0-0.2) Sodium Level 150 mmol/L (136-145) Potassium Level 3.8 mmol/L (3.5-5.1) Chloride Level 116 mmol/L (98-107) Carbon Dioxide Level 18 mmol/L (21-32) Anion Gap 16 (6-14) Blood Urea Nitrogen 40 mg/dL (8-26) Creatinine 1.9 mg/dL (0.7-1.3) Estimated GFR (Cockcroft-Gault) 34.0 Glucose Level 178 mg/dL (70-99) Calcium Level 9.0 mg/dL (8.5-10.1) Test 09/28/18 07:31 Glucose (Fingerstick) 160 mg/dL (70-99) Results All relevant outside records, renal labs, imaging studies, telemetry/EKG's were reviewed. RITU STEPHENS MD Sep 28, 2018 10:56
[2018-09-28 11:00] VITALS: BP 114/60
--- NOTE | 2018-09-28 11:46 | PDOC ---
[employer] PROGRESS NOTE Chief Complaint Chief Complaint Sepsis POA with no organ dysfunction Status post DKA Hypertension, controlled AK I VMN CK D stage 4 Lung mass Renal failure UTI Dementia Diabetes mellitus 2 uncontrolled History of Present Illness History of Present Illness Insulin drip off sometime last night Gap 15, looking well Patient not the best historian, some dementia Lives alone at home with no assistive device of ambulation Lactate down to 5.9 from 6 Tachycardic but BP okay He takes only OHA not insulin at home A1c is still pending Creatinine 2.5 with a GFR 24 - renal on board He is a DNR Plan: continue antibiotics for UTI Heme onc on board because of some lung mass seen on imaging He feels and looks well, will go back to home hopefully with no PT needs DNR Hold lisinopril secondary to that AK I on CK D Okay to transfer out of ICU Discussed with [employer] Continue antibiotic for UTI Follow-up A1c Sliding-scale insulin Might need to start some glyburide not metformin We'll hold off sulfonylurea for now in this elderly Vitals Vitals Vital Signs Date Time Temp Pulse Resp B/P (MAP) Pulse Ox O2 Delivery O2 Flow Rate FiO2 09/28/18 08:00 Room Air 09/28/18 07:00 97.5 95 20 127/76 (93) 94 97.5 Physical Exam Physical Exam GENERAL: Alert, awake, smiling male in no acute distress, lying comfortably in bed, pleasantly confused. HEENT: Normocephalic, atraumatic, anicteric. No thrush. Oral mucosa moist. NECK: Supple. JVD. LUNGS: Clear bilaterally. No wheezing. HEART: S1, S2 with no gallops or murmurs. ABDOMEN: Soft, nontender, nondistended. GENITOURINARY: Yun in place. NEUROLOGIC: Alert, awake, pleasantly confused baseline per daughter at bedside. PSYCHIATRIC: Normal affect. DERMATOLOGIC: Warm, dry. No generalized rash. General: Alert, Oriented X3, Cooperative, No acute distress Heart: Regular rate, Normal S1, Normal S2, No murmurs Lungs: Clear Abdomen: Normal bowel sounds, Soft, No tenderness Extremities: No clubbing, No cyanosis Skin: No rashes, No breakdown, No significant lesion Labs Labs: Laboratory Tests Test 09/27/18 12:38 09/27/18 16:31 09/27/18 20:32 09/28/18 03:15 Glucose (Fingerstick) 316 mg/dL (70-99) 278 mg/dL (70-99) 227 mg/dL (70-99) White Blood Count 11.5 x10^3/uL (4.0-11.0) Red Blood Count 4.39 x10^6/uL (4.30-5.70) Hemoglobin 12.3 g/dL (13.0-17.5) Hematocrit 38.0 % (39.0-53.0) Mean Corpuscular Volume 87 fL (79-100) Mean Corpuscular Hemoglobin 28 pg (25-35) Mean Corpuscular Hemoglobin Concent 33 g/dL (31-37) Red Cell Distribution Width 15.0 % (11.5-14.5) Platelet Count 204 x10^3/uL (140-400) Neutrophils (%) (Auto) 77 % (31-73) Lymphocytes (%) (Auto) 16 % (24-48) Monocytes (%) (Auto) 5 % (0-9) Eosinophils (%) (Auto) 2 % (0-3) Basophils (%) (Auto) 1 % (0-3) Neutrophils # (Auto) 8.8 x10^3uL (1.8-7.7) Lymphocytes # (Auto) 1.8 x10^3/uL (1.0-4.8) Monocytes # (Auto) 0.6 x10^3/uL (0.0-1.1) Eosinophils # (Auto) 0.3 x10^3/uL (0.0-0.7) Basophils # (Auto) 0.1 x10^3/uL (0.0-0.2) Sodium Level 150 mmol/L (136-145) Potassium Level 3.8 mmol/L (3.5-5.1) Chloride Level 116 mmol/L (98-107) Carbon Dioxide Level 18 mmol/L (21-32) Anion Gap 16 (6-14) Blood Urea Nitrogen 40 mg/dL (8-26) Creatinine 1.9 mg/dL (0.7-1.3) Estimated GFR (Cockcroft-Gault) 34.0 Glucose Level 178 mg/dL (70-99) Calcium Level 9.0 mg/dL (8.5-10.1) Test 09/28/18 07:31 09/28/18 11:42 Glucose (Fingerstick) 160 mg/dL (70-99) 241 mg/dL (70-99) Assessment and Plan Assessmemt and Plan Problems Medical Problems: (1) Acute renal failure Status: Acute (2) DKA (diabetic ketoacidoses) Status: Acute (3) Hyperosmolar hyperglycemic coma due to diabetes mellitus without ket oacidosis Status: Acute (4) Lung mass Status: Acute (5) Severe dehydration Status: Acute (6) Severe sepsis Status: Acute (7) Urinary tract infection Status: Acute Plan: continue antibiotics for UTI Heme onc on board because of some lung mass seen on imaging Will go back to home hopefully with no PT needs DNR Hold lisinopril secondary to that AK I on CK D Discussed with RN Continue antibiotic for UTI Follow-up A1c Sliding-scale insulin Might need to start some glyburide not metformin We'll hold off sulfonylurea for now in this elderly Comment Review of Relevant I have reviewed the following items ranjith (where applicable) has been applied. Labs Laboratory Tests Test 09/26/18 16:15 09/26/18 16:40 09/26/18 17:00 09/26/18 17:07 White Blood Count 10.3 x10^3/uL (4.0-11.0) Red Blood Count 4.95 x10^6/uL (4.30-5.70) Hemoglobin 14.1 g/dL (13.0-17.5) Hematocrit 44.5 % (39.0-53.0) Mean Corpuscular Volume 90 fL (79-100) Mean Corpuscular Hemoglobin 29 pg (25-35) Mean Corpuscular Hemoglobin Concent 32 g/dL (31-37) Red Cell Distribution Width 15.4 % (11.5-14.5) Platelet Count 316 x10^3/uL (140-400) Neutrophils (%) (Auto) 80 % (31-73) Lymphocytes (%) (Auto) 13 % (24-48) Monocytes (%) (Auto) 7 % (0-9) Eosinophils (%) (Auto) 0 % (0-3) Basophils (%) (Auto) 0 % (0-3) Neutrophils # (Auto) 8.3 x10^3uL (1.8-7.7) Lymphocytes # (Auto) 1.3 x10^3/uL (1.0-4.8) Monocytes # (Auto) 0.7 x10^3/uL (0.0-1.1) Eosinophils # (Auto) 0.0 x10^3/uL (0.0-0.7) Basophils # (Auto) 0.0 x10^3/uL (0.0-0.2) Prothrombin Time 14.6 SEC (11.7-14.0) Prothromb Time International Ratio 1.2 (0.8-1.1) Sodium Level 144 mmol/L (136-145) Potassium Level 5.6 mmol/L (3.5-5.1) Chloride Level 101 mmol/L (98-107) Carbon Dioxide Level 20 mmol/L (21-32) Anion Gap 23 (6-14) Blood Urea Nitrogen 80 mg/dL (8-26) Creatinine 4.2 mg/dL (0.7-1.3) Estimated GFR (Cockcroft-Gault) 13.6 BUN/Creatinine Ratio 19 (6-20) Glucose Level 1010 mg/dL (70-99) Hemoglobin A1c 10.7 % (4.8-5.6) Lactic Acid Level 6.8 mmol/L (0.4-2.0) Calcium Level 11.2 mg/dL (8.5-10.1) Magnesium Level 3.0 mg/dL (1.8-2.4) Total Bilirubin 0.8 mg/dL (0.2-1.0) Aspartate Amino Transf (AST/SGOT) 9 U/L (15-37) Alanine Aminotransferase (ALT/SGPT) 18 U/L (16-63) Alkaline Phosphatase 90 U/L (46-116) Total Protein 7.7 g/dL (6.4-8.2) Albumin 3.7 g/dL (3.4-5.0) Albumin/Globulin Ratio 0.9 (1.0-1.7) O2 Saturation 98 % (92-99) Arterial Blood pH 7.38 (7.35-7.45) Arterial Blood pCO2 at Patient Temp 32 mmHg (35-46) Arterial Blood pO2 at Patient Temp 149 mmHg (65-108) Arterial Blood HCO3 19 mmol/L (21-28) Arterial Blood Base Excess -5 mmol/L (-3-3) FiO2 28 Ammonia < 10 mcmol/L (11-34) Bedside Troponin I 0.01 ng/ml (<0.08) Test 09/26/18 17:10 09/26/18 19:30 09/26/18 19:43 09/26/18 19:50 Urine Collection Type Unknown Urine Color Yellow Urine Clarity Turbid Urine pH 5.5 Urine Specific Kendrick 1.020 Urine Protein 100 mg/dL (NEG-TRACE) Urine Glucose (UA) >=1000 mg/dL (NEG) Urine Ketones (Stick) Trace mg/dL (NEG) Urine Blood Large (NEG) Urine Nitrite Negative (NEG) Urine Bilirubin Negative (NEG) Urine Urobilinogen Dipstick 0.2 mg/dL (0.2 mg/dL) Urine Leukocyte Esterase Large (NEG) Urine RBC 11-20 /HPF (0-2) Urine WBC Tntc /HPF (0-4) Urine Squamous Epithelial Cells None /LPF Urine Bacteria Many /HPF (0-FEW) Nasal Screen MRSA (PCR) Negative (Negative) Glucose (Fingerstick) 594 mg/dL (70-99) Sodium Level 153 mmol/L (136-145) Potassium Level 3.9 mmol/L (3.5-5.1) Chloride Level 114 mmol/L (98-107) Carbon Dioxide Level 15 mmol/L (21-32) Anion Gap 24 (6-14) Blood Urea Nitrogen 77 mg/dL (8-26) Creatinine 3.5 mg/dL (0.7-1.3) Estimated GFR (Cockcroft-Gault) 16.8 Glucose Level 684 mg/dL (70-99) Lactic Acid Level 5.9 mmol/L (0.4-2.0) Calcium Level 10.4 mg/dL (8.5-10.1) Phosphorus Level 3.7 mg/dL (2.6-4.7) Magnesium Level 2.9 mg/dL (1.8-2.4) Total Bilirubin 0.5 mg/dL (0.2-1.0) Direct Bilirubin 0.2 mg/dL (0.0-0.2) Aspartate Amino Transf (AST/SGOT) 13 U/L (15-37) Alanine Aminotransferase (ALT/SGPT) 15 U/L (16-63) Alkaline Phosphatase 85 U/L (46-116) Total Protein 8.0 g/dL (6.4-8.2) Albumin 3.3 g/dL (3.4-5.0) Lipase 522 U/L (73-393) Test 09/26/18 21:28 09/26/18 22:38 09/26/18 23:34 09/27/18 00:47 Glucose (Fingerstick) 354 mg/dL (70-99) 287 mg/dL (70-99) 229 mg/dL (70-99) 131 mg/dL (70-99) Test 09/27/18 02:16 09/27/18 02:35 09/27/18 03:02 09/27/18 05:04 Glucose (Fingerstick) 65 mg/dL (70-99) 118 mg/dL (70-99) 166 mg/dL (70-99) Sodium Level 159 mmol/L (136-145) Potassium Level 3.5 mmol/L (3.5-5.1) Chloride Level 123 mmol/L (98-107) Carbon Dioxide Level 24 mmol/L (21-32) Anion Gap 12 (6-14) Blood Urea Nitrogen 62 mg/dL (8-26) Creatinine 2.6 mg/dL (0.7-1.3) Estimated GFR (Cockcroft-Gault) 23.7 Glucose Level 139 mg/dL (70-99) Calcium Level 9.6 mg/dL (8.5-10.1) Phosphorus Level 2.3 mg/dL (2.6-4.7) Magnesium Level 2.3 mg/dL (1.8-2.4) Test 09/27/18 08:30 09/27/18 08:45 09/27/18 10:19 09/27/18 12:38 Sodium Level 156 mmol/L (136-145) Potassium Level 3.9 mmol/L (3.5-5.1) Chloride Level 121 mmol/L (98-107) Carbon Dioxide Level 20 mmol/L (21-32) Anion Gap 15 (6-14) Blood Urea Nitrogen 59 mg/dL (8-26) Creatinine 2.5 mg/dL (0.7-1.3) Estimated GFR (Cockcroft-Gault) 24.8 Glucose Level 266 mg/dL (70-99) Calcium Level 9.7 mg/dL (8.5-10.1) Phosphorus Level 3.0 mg/dL (2.6-4.7) Magnesium Level 2.5 mg/dL (1.8-2.4) Glucose (Fingerstick) 217 mg/dL (70-99) 316 mg/dL (70-99) Lactic Acid Level 1.3 mmol/L (0.4-2.0) Test 09/27/18 16:31 09/27/18 20:32 09/28/18 03:15 09/28/18 07:31 Glucose (Fingerstick) 278 mg/dL (70-99) 227 mg/dL (70-99) 160 mg/dL (70-99) White Blood Count 11.5 x10^3/uL (4.0-11.0) Red Blood Count 4.39 x10^6/uL (4.30-5.70) Hemoglobin 12.3 g/dL (13.0-17.5) Hematocrit 38.0 % (39.0-53.0) Mean Corpuscular Volume 87 fL (79-100) Mean Corpuscular Hemoglobin 28 pg (25-35) Mean Corpuscular Hemoglobin Concent 33 g/dL (31-37) Red Cell Distribution Width 15.0 % (11.5-14.5) Platelet Count 204 x10^3/uL (140-400) Neutrophils (%) (Auto) 77 % (31-73) Lymphocytes (%) (Auto) 16 % (24-48) Monocytes (%) (Auto) 5 % (0-9) Eosinophils (%) (Auto) 2 % (0-3) Basophils (%) (Auto) 1 % (0-3) Neutrophils # (Auto) 8.8 x10^3uL (1.8-7.7) Lymphocytes # (Auto) 1.8 x10^3/uL (1.0-4.8) Monocytes # (Auto) 0.6 x10^3/uL (0.0-1.1) Eosinophils # (Auto) 0.3 x10^3/uL (0.0-0.7) Basophils # (Auto) 0.1 x10^3/uL (0.0-0.2) Sodium Level 150 mmol/L (136-145) Potassium Level 3.8 mmol/L (3.5-5.1) Chloride Level 116 mmol/L (98-107) Carbon Dioxide Level 18 mmol/L (21-32) Anion Gap 16 (6-14) Blood Urea Nitrogen 40 mg/dL (8-26) Creatinine 1.9 mg/dL (0.7-1.3) Estimated GFR (Cockcroft-Gault) 34.0 Glucose Level 178 mg/dL (70-99) Calcium Level 9.0 mg/dL (8.5-10.1) Test 09/28/18 11:42 Glucose (Fingerstick) 241 mg/dL (70-99) Laboratory Tests Test 09/27/18 12:38 09/27/18 16:31 09/27/18 20:32 09/28/18 03:15 Glucose (Fingerstick) 316 mg/dL (70-99) 278 mg/dL (70-99) 227 mg/dL (70-99) White Blood Count 11.5 x10^3/uL (4.0-11.0) Red Blood Count 4.39 x10^6/uL (4.30-5.70) Hemoglobin 12.3 g/dL (13.0-17.5) Hematocrit 38.0 % (39.0-53.0) Mean Corpuscular Volume 87 fL (79-100) Mean Corpuscular Hemoglobin 28 pg (25-35) Mean Corpuscular Hemoglobin Concent 33 g/dL (31-37) Red Cell Distribution Width 15.0 % (11.5-14.5) Platelet Count 204 x10^3/uL (140-400) Neutrophils (%) (Auto) 77 % (31-73) Lymphocytes (%) (Auto) 16 % (24-48) Monocytes (%) (Auto) 5 % (0-9) Eosinophils (%) (Auto) 2 % (0-3) Basophils (%) (Auto) 1 % (0-3) Neutrophils # (Auto) 8.8 x10^3uL (1.8-7.7) Lymphocytes # (Auto) 1.8 x10^3/uL (1.0-4.8) Monocytes # (Auto) 0.6 x10^3/uL (0.0-1.1) Eosinophils # (Auto) 0.3 x10^3/uL (0.0-0.7) Basophils # (Auto) 0.1 x10^3/uL (0.0-0.2) Sodium Level 150 mmol/L (136-145) Potassium Level 3.8 mmol/L (3.5-5.1) Chloride Level 116 mmol/L (98-107) Carbon Dioxide Level 18 mmol/L (21-32) Anion Gap 16 (6-14) Blood Urea Nitrogen 40 mg/dL (8-26) Creatinine 1.9 mg/dL (0.7-1.3) Estimated GFR (Cockcroft-Gault) 34.0 Glucose Level 178 mg/dL (70-99) Calcium Level 9.0 mg/dL (8.5-10.1) Test 09/28/18 07:31 09/28/18 11:42 Glucose (Fingerstick) 160 mg/dL (70-99) 241 mg/dL (70-99) Microbiology 09/26/18 Blood Culture - Preliminary, Resulted NO GROWTH AFTER 1 DAY Medications Current Medications Sodium Chloride 1,000 ml @ 1,000 mls/hr Q1H IV Last administered on 09/26/18at 16:21; Start 09/26/18 at 17:00; Stop 09/26/18 at 17:59; Status DC Sodium Chloride 1,000 ml @ 1,000 mls/hr 1X ONCE IV Last administered on 09/26/18at 17:41; Start 09/26/18 at 17:00; Stop 09/26/18 at 17:59; Status DC Insulin Human Regular (HumuLIN R VIAL) 10 unit 1X ONCE IV Last administered on 09/26/18at 18:28; Start 09/26/18 at 17:30; Stop 09/26/18 at 17:31; Status DC Insulin Human Regular 150 ml @ 0 mls/hr 1X ONCE IV Last administered on 09/26/18at 18:31; Start 09/26/18 at 17:30; Stop 09/26/18 at 17:31; Status DC Piperacillin Sod/ Tazobactam Sod 3.375 gm/Sodium Chloride 50 ml @ 100 mls/hr Q6HRS IV ; Start 09/26/18 at 18:00; Status UNV Vancomycin HCl 250 ml @ 250 mls/hr 1X ONCE IV ; Start 09/26/18 at 17:45; Stop 09/26/18 at 18:44; Status UNV Piperacillin Sod/ Tazobactam Sod 3.375 gm/Sodium Chloride 50 ml @ 100 mls/hr ONCE ONCE IV Last administered on 09/26/18at 17:42; Start 09/26/18 at 17:45; Stop 09/26/18 at 18:14; Status DC Vancomycin HCl 1.5 gm/Sodium Chloride 500 ml @ 250 mls/hr 1X ONCE IV Last administered on 09/26/18at 18:49; Start 09/26/18 at 18:15; Stop 09/26/18 at 20:14; Status DC Sodium Chloride 1,000 ml @ 150 mls/hr Q6H40M IV Last administered on 09/26/18at 18:59; Start 09/26/18 at 17:44; Stop 09/27/18 at 17:43; Status DC Piperacillin Sod/ Tazobactam Sod 2.25 gm/Sodium Chloride 50 ml @ 100 mls/hr Q8HRS IV Last administered on 09/28/18at 04:51; Start 09/27/18 at 06:00 Sodium Chloride 1,000 ml @ 500 mls/hr Q2H IV Last administered on 09/26/18at 22:07; Start 09/26/18 at 21:15; Stop 09/26/18 at 21:40; Status DC Insulin Human Regular 150 unit/ Sodium Chloride 151.5 ml @ 0 mls/hr CONT PRN PRN IV PER PROTOCOL; Start 09/26/18 at 21:15; Stop 09/27/18 at 15:56; Status DC Potassium Chloride/Water 100 ml @ 100 mls/hr PRN Q1HR PRN IV SEE COMMENTS; Start 09/26/18 at 21:15; Stop 09/27/18 at 15:56; Status DC Potassium Chloride/Water 100 ml @ 100 mls/hr PRN Q1HR PRN IV SEE COMMENTS; Start 09/26/18 at 21:15; Stop 09/27/18 at 15:56; Status DC Potassium Chloride/Water 100 ml @ 100 mls/hr PRN Q1HR PRN IV SEE COMMENTS; Start 09/26/18 at 21:15; Stop 09/27/18 at 15:56; Status DC Dextrose (Dextrose 50%-Water Syringe) 25 gm CONT PRN PRN IV PER PROTOCOL Last administered on 09/27/18at 02:35; Start 09/27/18 at 02:30; Stop 09/27/18 at 05:32; Status DC Sodium Chloride 1,000 ml @ 125 mls/hr 1X ONCE IV Last administered on 09/27/18at 05:02; Start 09/27/18 at 04:15; Stop 09/27/18 at 12:14; Status DC Insulin Human Lispro (HumaLOG) 0-5 UNITS TIDWMEALS SQ Last administered on 09/27/18at 08:54; Start 09/27/18 at 08:00; Stop 09/27/18 at 09:14; Status DC Dextrose (Dextrose 50%-Water Syringe) 12.5 gm PRN Q15MIN PRN IV SEE COMMENTS; Start 09/27/18 at 05:30; Stop 09/27/18 at 09:26; Status DC Lactobacillus Rhamnosus (Culturelle) 1 cap BID PO Last administered on 09/28/18at 08:31; Start 09/27/18 at 21:00 Insulin Human Lispro (HumaLOG) 0-9 UNITS TIDWMEALS SQ Last administered on 09/11 10/29at 17:38; Start 09/27/18 at 12:00 Dextrose (Dextrose 50%-Water Syringe) 12.5 gm PRN Q15MIN PRN IV SEE COMMENTS; Start 09/27/18 at 09:15 Glyburide (Diabeta) 1.25 mg BIDWMEALS PO Last administered on 09/28/18at 08:31; Start 09/27/18 at 11:30 Insulin Glargine (Lantus) 12 units QHS SQ Last administered on 09/27/18at 21:14; Start 09/27/18 at 21:00 Active Scripts Active Reported Lisinopril 40 Mg Tablet 1 Tab PO DAILY Vitals/I & O Vital Sign - Last 24 Hours 09/27/18 09/27/18 09/27/18 09/27/18 12:00 16:00 19:00 20:00 Temp 98.3 98.3 98.1 98.3 98.3 98.1 Pulse 106 103 103 Resp 15 18 B/P (MAP) 115/61 (79) 123/68 (86) 120/68 (85) Pulse Ox 97 90 96 O2 Delivery Room Air Room Air Room Air Room Air 09/27/18 09/28/18 09/28/18 09/28/18 23:00 03:00 07:00 08:00 Temp 98.1 97.9 97.5 98.1 97.9 97.5 Pulse 100 63 95 Resp 18 18 20 B/P (MAP) 125/68 (87) 119/66 (83) 127/76 (93) Pulse Ox 92 96 94 O2 Delivery Room Air Room Air Room Air Room Air Intake and Output 09/27/18 09/27/18 09/28/18 14:59 22:59 06:59 Intake Total 700 ml 570 ml 310 ml Output Total 325 ml 900 ml Balance 375 ml -330 ml 310 ml BRENT VILLALOBOS III DO Sep 28, 2018 11:46
[2018-09-28 15:00] VITALS: BP 122/77
--- NOTE | 2018-09-28 15:27 | NUR ---
SW following pt for anticipated dc needs. Chart reviewed and discussed with RN. Pt lives at home with his daughter. PT/OT recommends SNU. SW attempted to meet with pt but pt is asleep. SW spoke with pt's daughter, Lisa regarding SNU, options, insurance coverage and medicare star ratings. Pt's daughter chose [facility]. SW phoned and faxed referral. Pt acceptance and admission pending. ESTEFANI will continue to follow.
[2018-09-28 19:00] VITALS: BP 135/90
[2018-09-28] MEDS: INSULIN GLARGINE 300 UNITS/3 ML INSULN.PEN. SQ SCH (21:33)
[2018-09-28 23:00] VITALS: BP 122/75
[2018-09-29 03:00] VITALS: BP 131/83
[2018-09-29] MEDS: PIPERACILLIN/TAZOBACTAM 2.25 GM in IV NORMAL SALINE 50ML 50 ML IV SCH ×3 (05:50→21:19)
[2018-09-29 07:00] VITALS: BP 139/70
[2018-09-29] MEDS: INSULIN LISPRO 300 UNITS/3 ML INSULN.PEN. SQ SCH ×3 (08:00→17:21)
[2018-09-29] MEDS: LACTOBACILLUS RHAMNOSUS GG 1 CAPSULE. PO SCH ×2 (08:12→21:15)
[2018-09-29] MEDS: glyBURIDE 1.25 MG TABLET PO SCH ×2 (08:12→17:17)
--- NOTE | 2018-09-29 09:14 | PDOC ---
SUBJECTIVE Subjective S: Doing fine, eating breakfast O: Physical exam: Gen.: elderly man, resting in bed in NAD Psychiatric: Pleasant mood and affect Labs: recently 11.5 wbc, 12.3 Hb, plt 264 Rads: CT chest noncontrast 3.6 cm right lung mass Assessment and Plan: 83-year-old man admitted with weakness and anorexia with history of dementia, DM and UTI, with a R lung mass, w/ benign appearance. UTI: on Abx Renal insufficiency: improved Right lung mass: CT chest showed right lung mass, appears benign per Dr Isaacs, will likely get a f/u CT in 3-4 mos for further eval, no bx at this time DM: Per primary Dispo: Per others, he is welcome to follow-up with us at any point in time as needed Thank you kindly and please do not hesitate to call with questions. OBJECTIVE Vital Signs Vital Signs Date Time Temp Pulse Resp B/P (MAP) Pulse Ox O2 Delivery O2 Flow Rate FiO2 09/29/18 07:00 98.4 89 14 139/70 (93) 96 Room Air 98.4 09/29/18 03:00 98.0 97 18 131/83 (99) 98 Room Air 98.0 09/28/18 23:00 98.7 101 18 122/75 (91) 96 Room Air 98.7 09/28/18 20:00 Room Air 09/28/18 19:00 99.4 114 18 135/90 (105) 95 Room Air 99.4 09/28/18 15:00 98.4 100 16 122/77 (92) 96 Room Air 98.4 09/28/18 11:00 98.2 99 16 114/60 (78) 93 Room Air 98.2 I & O Intake and Output 09/29/18 07:00 Intake Total 540 ml Balance 540 ml Intake Oral 540 ml # Bowel Movements 2 COMMENT Lab Laboratory Tests Test 09/28/18 11:03 09/28/18 11:42 09/28/18 16:39 09/28/18 20:19 Erythrocyte Sedimentation Rate 36 (0-15) Glucose (Fingerstick) 241 mg/dL (70-99) 141 mg/dL (70-99) 200 mg/dL (70-99) Test 09/29/18 07:35 Glucose (Fingerstick) 152 mg/dL (70-99) Nutrition Consultation Dietary Evaluation: Recommendations by RD: Decrease Calorie Intake, Protein supplementation Comments: REC continue w/ADA diet as ordered, honor food preferences, and provide snacks as requested REC glucerna TID (strawberry or butter pecan) Expected Outcomes/Goals: PO intake to meet >75% est needs Malnutrition Findings: Body Fat Depletion (Non Severe: Mild Depletion Weight Status: Appropriate GABBY ADDISON MD Sep 29, 2018 09:14
--- NOTE | 2018-09-29 09:27 | PDOC ---
Infectious Disease Note Subjective: Subjective Pt is without complaints says feels ok somewhat confused comfortable no new issues per rn ROS: ROS Negative except for above. Vital Signs: Vital Signs Vital Signs Date Time Temp Pulse Resp B/P (MAP) Pulse Ox O2 Delivery O2 Flow Rate FiO2 09/29/18 07:00 98.4 89 14 139/70 (93) 96 Room Air 98.4 Physical Exam: PHYSICAL EXAM GENERAL: Alert, awake, smiling male in no acute distress, lying comfortably in bed, pleasantly confused. HEENT: Normocephalic, atraumatic, anicteric. No thrush. Oral mucosa moist. NECK: Supple. JVD. LUNGS: Clear bilaterally. No wheezing. HEART: S1, S2 with no gallops or murmurs. ABDOMEN: Soft, nontender, nondistended. GENITOURINARY: Yun in place. NEUROLOGIC: Alert, awake, pleasantly confused baseline per daughter at bedside. PSYCHIATRIC: Normal affect. DERMATOLOGIC: Warm, dry. No generalized rash. Medications: Inpatient Meds: Current Medications Medications (Trade) Dose Ordered Sig/Tiara Start Time Stop Time Status Last Admin Dose Admin Dextrose (Dextrose 50%-Water Syringe) 12.5 gm PRN Q15MIN PRN 09/27/18 09:15 Glyburide (Diabeta) 1.25 mg BIDWMEALS 09/27/18 11:30 09/29/18 08:12 1.25 MG Insulin Glargine (Lantus) 12 units QHS 09/27/18 21:00 09/28/18 21:33 12 UNITS Insulin Human Lispro (HumaLOG) 0-9 UNITS TIDWMEALS 09/27/18 12:00 09/28/18 12:28 7 UNITS Insulin Human Regular 150 ml @ 0 mls/hr 1X ONCE 09/26/18 17:30 09/26/18 17:31 DC 09/26/18 18:31 19 MLS/HR Insulin Human Regular (HumuLIN R VIAL) 10 unit 1X ONCE 09/26/18 17:30 09/26/18 17:31 DC 09/26/18 18:28 10 UNIT Insulin Human Regular 150 unit/ Sodium Chloride 151.5 ml @ 0 mls/hr CONT PRN PRN 09/26/18 21:15 09/27/18 15:56 DC Lactobacillus Rhamnosus (Culturelle) 1 cap BID 09/27/18 21:00 09/29/18 08:12 1 CAP Piperacillin Sod/ Tazobactam Sod 2.25 gm/Sodium Chloride 50 ml @ 100 mls/hr Q8HRS 09/27/18 06:00 09/29/18 05:50 100 MLS/HR Piperacillin Sod/ Tazobactam Sod 3.375 gm/Sodium Chloride 50 ml @ 100 mls/hr ONCE ONCE 09/26/18 17:45 09/26/18 18:14 DC 09/26/18 17:42 100 MLS/HR Potassium Chloride/Water 100 ml @ 100 mls/hr PRN Q1HR PRN 09/26/18 21:15 09/27/18 15:56 DC Sodium Chloride 1,000 ml @ 125 mls/hr 1X ONCE 09/27/18 04:15 09/27/18 12:14 DC 09/27/18 05:02 125 MLS/HR Vancomycin HCl 1.5 gm/Sodium Chloride 500 ml @ 250 mls/hr 1X ONCE 09/26/18 18:15 09/26/18 20:14 DC 09/26/18 18:49 250 MLS/HR Labs: Lab Laboratory Tests Test 09/28/18 11:03 09/28/18 11:42 09/28/18 16:39 09/28/18 20:19 Erythrocyte Sedimentation Rate 36 (0-15) Glucose (Fingerstick) 241 mg/dL (70-99) 141 mg/dL (70-99) 200 mg/dL (70-99) Test 09/29/18 07:35 Glucose (Fingerstick) 152 mg/dL (70-99) Micro BC neg so far Objective: Assessment: 1. Sepsis source Likely with Urinary tract infection. 2. Severe hyperglycemia. 3. Lactic acidosis, multifactorial. 4. Renal failure. 5. Weight loss with right lung mass. 6. Hyponatremia. 7. Metabolic acidosis, improving. Plan: Plan of Care 1. Continue empiric Zosyn, renal dosing. 2. Follow up urine culture and blood culture.still aldo will get u/s of renal 3. Continue supportive care. 4. D/W Nursing staff MATEO RUVALCABA MD Sep 29, 2018 09:27
--- NOTE | 2018-09-29 10:45 | PDOC ---
PULMONARY PROGRESS NOTES Subjective PT NOT MORE SOA NO DISTRESS Vitals Vital Signs Date Time Temp Pulse Resp B/P (MAP) Pulse Ox O2 Delivery O2 Flow Rate FiO2 09/29/18 08:00 Room Air 09/29/18 07:00 98.4 89 14 139/70 (93) 96 98.4 ROS: No Nausea, No Chest Pain, No Abdominal Pain, No Increase Cough Lungs: Clear Cardiovascular: S1, S2 Abdomen: Soft Neuro Exam: Alert Extremities: No Edema Skin: Warm, Dry Labs Laboratory Tests Test 09/27/18 12:38 09/27/18 16:31 09/27/18 20:32 09/28/18 03:15 Glucose (Fingerstick) 316 mg/dL (70-99) 278 mg/dL (70-99) 227 mg/dL (70-99) White Blood Count 11.5 x10^3/uL (4.0-11.0) Red Blood Count 4.39 x10^6/uL (4.30-5.70) Hemoglobin 12.3 g/dL (13.0-17.5) Hematocrit 38.0 % (39.0-53.0) Mean Corpuscular Volume 87 fL (79-100) Mean Corpuscular Hemoglobin 28 pg (25-35) Mean Corpuscular Hemoglobin Concent 33 g/dL (31-37) Red Cell Distribution Width 15.0 % (11.5-14.5) Platelet Count 204 x10^3/uL (140-400) Neutrophils (%) (Auto) 77 % (31-73) Lymphocytes (%) (Auto) 16 % (24-48) Monocytes (%) (Auto) 5 % (0-9) Eosinophils (%) (Auto) 2 % (0-3) Basophils (%) (Auto) 1 % (0-3) Neutrophils # (Auto) 8.8 x10^3uL (1.8-7.7) Lymphocytes # (Auto) 1.8 x10^3/uL (1.0-4.8) Monocytes # (Auto) 0.6 x10^3/uL (0.0-1.1) Eosinophils # (Auto) 0.3 x10^3/uL (0.0-0.7) Basophils # (Auto) 0.1 x10^3/uL (0.0-0.2) Sodium Level 150 mmol/L (136-145) Potassium Level 3.8 mmol/L (3.5-5.1) Chloride Level 116 mmol/L (98-107) Carbon Dioxide Level 18 mmol/L (21-32) Anion Gap 16 (6-14) Blood Urea Nitrogen 40 mg/dL (8-26) Creatinine 1.9 mg/dL (0.7-1.3) Estimated GFR (Cockcroft-Gault) 34.0 Glucose Level 178 mg/dL (70-99) Calcium Level 9.0 mg/dL (8.5-10.1) Test 09/28/18 07:31 09/28/18 11:03 09/28/18 11:42 09/28/18 16:39 Glucose (Fingerstick) 160 mg/dL (70-99) 241 mg/dL (70-99) 141 mg/dL (70-99) Erythrocyte Sedimentation Rate 36 (0-15) Test 09/28/18 20:19 09/29/18 07:35 Glucose (Fingerstick) 200 mg/dL (70-99) 152 mg/dL (70-99) Laboratory Tests Test 09/28/18 11:03 09/28/18 11:42 09/28/18 16:39 09/28/18 20:19 Erythrocyte Sedimentation Rate 36 (0-15) Glucose (Fingerstick) 241 mg/dL (70-99) 141 mg/dL (70-99) 200 mg/dL (70-99) Test 09/29/18 07:35 Glucose (Fingerstick) 152 mg/dL (70-99) Medications Active Scripts Medications Dose Route/Sig Max Daily Dose Days Date Category Lisinopril 40 Mg Tablet 1 Tab PO DAILY 09/27/18 Reported Impression . IMPRESSION: 1. Abnormal chest x-ray revealing right-sided lung mass. 2. History of tobacco dependence, quit 25 years ago. 3. Suspect chronic obstructive pulmonary disease. 4. [id number] metabolic, possible toxic encephalopathy. 5. Urinary tract infection. 6. Type 2 diabetes. 7. Acute on chronic renal failure. CT CHEST IMPRESSION: 1. Peripheral right lung mass centered along the lateral margin of the minor fissure which demonstrates heterogeneous low density internally. Diagnostic considerations include a pulmonary hamartoma, mucinous or necrotic neoplasm or liposarcoma. Correlation with any older chest imaging if available would be most helpful in evaluating stability. 2. Coronary artery calcifications. Plan . FOLLOW UP IN OFFICE OCT 3 I WILL S/O CALL IF NEEDED REVIEWED THE CT IT APPEARS BENIGN D/W DAUGHTER GAVE HER OPTIONS OF FNA OR CLOSE WATCH FAMILY WISHES TO PROCEED WITH REPEAT CT OUTPT IN 3-4 MONTHS MELISSA SALGUERO MD Sep 29, 2018 10:45
[2018-09-29 11:00] VITALS: BP 119/76
--- NOTE | 2018-09-29 11:07 | NUR ---
ESTEFANI following pt. Pt has been accepted at [facility] pending insurance approval. Kerry will submit for auth once pt is ready to dc. Addendum: 09/29/18 at 1420 by ROSENDO JARA After chart review, ESTEFANI requested Kerry to submit for auth. Discussed with pt's daughter, Lisa, via phone.
--- NOTE | 2018-09-29 12:21 | PDOC ---
[employer] [facility] PROGRESS NOTE Chief Complaint Chief Complaint Sepsis POA with no organ dysfunction Status post DKA Hypertension, controlled AK I VMN CK D stage 4 Lung mass Renal failure UTI Dementia Diabetes mellitus 2 uncontrolled History of Present Illness History of Present Illness [id number] Patient seen and examined He is slowly improving Discussed with case management and his family They requested something for appetite stimulation I called the pharmacy will not try Marinol Patient is going to [facility] in a.m. Vitals Vitals Vital Signs Date Time Temp Pulse Resp B/P (MAP) Pulse Ox O2 Delivery O2 Flow Rate FiO2 09/29/18 11:00 98.2 105 16 119/76 (90) 95 Room Air 98.2 Physical Exam Physical Exam GENERAL: Alert, awake, smiling male in no acute distress, lying comfortably in bed, pleasantly confused. HEENT: Normocephalic, atraumatic, anicteric. No thrush. Oral mucosa moist. NECK: Supple. JVD. LUNGS: Clear bilaterally. No wheezing. HEART: S1, S2 with no gallops or murmurs. ABDOMEN: Soft, nontender, nondistended. GENITOURINARY: Yun in place. NEUROLOGIC: Alert, awake, pleasantly confused baseline per daughter at bedside. PSYCHIATRIC: Normal affect. DERMATOLOGIC: Warm, dry. No generalized rash. General: Alert, Oriented X3, Cooperative, No acute distress Heart: Regular rate, Normal S1, Normal S2, No murmurs Lungs: Clear Abdomen: Normal bowel sounds, Soft, No tenderness Extremities: No clubbing, No cyanosis Skin: No rashes, No breakdown, No significant lesion Labs Labs: Laboratory Tests Test 09/28/18 16:39 09/28/18 20:19 09/29/18 07:35 09/29/18 11:45 Glucose (Fingerstick) 141 mg/dL (70-99) 200 mg/dL (70-99) 152 mg/dL (70-99) 223 mg/dL (70-99) Assessment and Plan Assessmemt and Plan Problems Medical Problems: (1) Acute renal failure Status: Acute (2) DKA (diabetic ketoacidoses) Status: Acute (3) Hyperosmolar hyperglycemic coma due to diabetes mellitus without ketoacidosis Status: Acute (4) Lung mass Status: Acute (5) Severe dehydration Status: Acute (6) Severe sepsis Status: Acute (7) Urinary tract infection Status: Acute Plan: Added Marinol 2.5 twice a day We'll plan to discharge to skilled in the morning continue antibiotics for UTI Heme onc on board because of some lung mass seen on imaging Will go back to home hopefully with no PT needs DNR Hold lisinopril secondary to that AK I on CK D Discussed with RN Continue antibiotic for UTI Follow-up A1c Sliding-scale insulin Might need to start some glyburide not metformin We'll hold off sulfonylurea for now in this elderly Comment Review of Relevant I have reviewed the following items ranjith (where applicable) has been applied. Labs Laboratory Tests Test 09/27/18 12:38 09/27/18 16:31 09/27/18 20:32 09/28/18 03:15 Glucose (Fingerstick) 316 mg/dL (70-99) 278 mg/dL (70-99) 227 mg/dL (70-99) White Blood Count 11.5 x10^3/uL (4.0-11.0) Red Blood Count 4.39 x10^6/uL (4.30-5.70) Hemoglobin 12.3 g/dL (13.0-17.5) Hematocrit 38.0 % (39.0-53.0) Mean Corpuscular Volume 87 fL (79-100) Mean Corpuscular Hemoglobin 28 pg (25-35) Mean Corpuscular Hemoglobin Concent 33 g/dL (31-37) Red Cell Distribution Width 15.0 % (11.5-14.5) Platelet Count 204 x10^3/uL (140-400) Neutrophils (%) (Auto) 77 % (31-73) Lymphocytes (%) (Auto) 16 % (24-48) Monocytes (%) (Auto) 5 % (0-9) Eosinophils (%) (Auto) 2 % (0-3) Basophils (%) (Auto) 1 % (0-3) Neutrophils # (Auto) 8.8 x10^3uL (1.8-7.7) Lymphocytes # (Auto) 1.8 x10^3/uL (1.0-4.8) Monocytes # (Auto) 0.6 x10^3/uL (0.0-1.1) Eosinophils # (Auto) 0.3 x10^3/uL (0.0-0.7) Basophils # (Auto) 0.1 x10^3/uL (0.0-0.2) Sodium Level 150 mmol/L (136-145) Potassium Level 3.8 mmol/L (3.5-5.1) Chloride Level 116 mmol/L (98-107) Carbon Dioxide Level 18 mmol/L (21-32) Anion Gap 16 (6-14) Blood Urea Nitrogen 40 mg/dL (8-26) Creatinine 1.9 mg/dL (0.7-1.3) Estimated GFR (Cockcroft-Gault) 34.0 Glucose Level 178 mg/dL (70-99) Calcium Level 9.0 mg/dL (8.5-10.1) Test 09/28/18 07:31 09/28/18 11:03 09/28/18 11:42 09/28/18 16:39 Glucose (Fingerstick) 160 mg/dL (70-99) 241 mg/dL (70-99) 141 mg/dL (70-99) Erythrocyte Sedimentation Rate 36 (0-15) Test 09/28/18 20:19 09/29/18 07:35 09/29/18 11:45 Glucose (Fingerstick) 200 mg/dL (70-99) 152 mg/dL (70-99) 223 mg/dL (70-99) Laboratory Tests Test 09/28/18 16:39 09/28/18 20:19 09/29/18 07:35 09/29/18 11:45 Glucose (Fingerstick) 141 mg/dL (70-99) 200 mg/dL (70-99) 152 mg/dL (70-99) 223 mg/dL (70-99) Microbiology 09/26/18 Blood Culture - Preliminary, Resulted NO GROWTH AFTER 2 DAYS Medications Current Medications Sodium Chloride 1,000 ml @ 1,000 mls/hr Q1H IV Last administered on 09/26/18at 16:21; Start 09/26/18 at 17:00; Stop 09/26/18 at 17:59; Status DC Sodium Chloride 1,000 ml @ 1,000 mls/hr 1X ONCE IV Last administered on 09/26/18at 17:41; Start 09/26/18 at 17:00; Stop 09/26/18 at 17:59; Status DC Insulin Human Regular (HumuLIN R VIAL) 10 unit 1X ONCE IV Last administered on 09/26/18at 18:28; Start 09/26/18 at 17:30; Stop 09/26/18 at 17:31; Status DC Insulin Human Regular 150 ml @ 0 mls/hr 1X ONCE IV Last administered on 09/26/18at 18:31; Start 09/26/18 at 17:30; Stop 09/26/18 at 17:31; Status DC Piperacillin Sod/ Tazobactam Sod 3.375 gm/Sodium Chloride 50 ml @ 100 mls/hr Q6HRS IV ; Start 09/26/18 at 18:00; Status UNV Vancomycin HCl 250 ml @ 250 mls/hr 1X ONCE IV ; Start 09/26/18 at 17:45; Stop 09/26/18 at 18:44; Status UNV Piperacillin Sod/ Tazobactam Sod 3.375 gm/Sodium Chloride 50 ml @ 100 mls/hr ONCE ONCE IV Last administered on 09/26/18at 17:42; Start 09/26/18 at 17:45; Stop 09/26/18 at 18:14; Status DC Vancomycin HCl 1.5 gm/Sodium Chloride 500 ml @ 250 mls/hr 1X ONCE IV Last administered on 09/26/18at 18:49; Start 09/26/18 at 18:15; Stop 09/26/18 at 20:14; Status DC Sodium Chloride 1,000 ml @ 150 mls/hr Q6H40M IV Last administered on 09/26/18at 18:59; Start 09/26/18 at 17:44; Stop 09/27/18 at 17:43; Status DC Piperacillin Sod/ Tazobactam Sod 2.25 gm/Sodium Chloride 50 ml @ 100 mls/hr Q8HRS IV Last administered on 09/29/18at 05:50; Start 09/27/18 at 06:00 Sodium Chloride 1,000 ml @ 500 mls/hr Q2H IV Last administered on 09/26/18at 22:07; Start 09/26/18 at 21:15; Stop 09/26/18 at 21:40; Status DC Insulin Human Regular 150 unit/ Sodium Chloride 151.5 ml @ 0 mls/hr CONT PRN PRN IV PER PROTOCOL; Start 09/26/18 at 21:15; Stop 09/27/18 at 15:56; Status DC Potassium Chloride/Water 100 ml @ 100 mls/hr PRN Q1HR PRN IV SEE COMMENTS; Start 09/26/18 at 21:15; Stop 09/27/18 at 15:56; Status DC Potassium Chloride/Water 100 ml @ 100 mls/hr PRN Q1HR PRN IV SEE COMMENTS; Start 09/26/18 at 21:15; Stop 09/27/18 at 15:56; Status DC Potassium Chloride/Water 100 ml @ 100 mls/hr PRN Q1HR PRN IV SEE COMMENTS; Start 09/26/18 at 21:15; Stop 09/27/18 at 15:56; Status DC Dextrose (Dextrose 50%-Water Syringe) 25 gm CONT PRN PRN IV PER PROTOCOL Last administered on 09/27/18at 02:35; Start 09/27/18 at 02:30; Stop 09/27/18 at 05:32; Status DC Sodium Chloride 1,000 ml @ 125 mls/hr 1X ONCE IV Last administered on 09/27/18at 05:02; Start 09/27/18 at 04:15; Stop 09/27/18 at 12:14; Status DC Insulin Human Lispro (HumaLOG) 0-5 UNITS TIDWMEALS SQ Last administered on 09/27/18at 08:54; Start 09/27/18 at 08:00; Stop 09/27/18 at 09:14; Status DC Dextrose (Dextrose 50%-Water Syringe) 12.5 gm PRN Q15MIN PRN IV SEE COMMENTS; Start 09/27/18 at 05:30; Stop 09/27/18 at 09:26; Status DC Lactobacillus Rhamnosus (Culturelle) 1 cap BID PO Last administered on 09/29/18at 08:12; Start 09/27/18 at 21:00 Insulin Human Lispro (HumaLOG) 0-9 UNITS TIDWMEALS SQ Last administered on 09/28/18at 12:28; Start 09/27/18 at 12:00 Dextrose (Dextrose 50%-Water Syringe) 12.5 gm PRN Q15MIN PRN IV SEE COMMENTS; Start 09/27/18 at 09:15 Glyburide (Diabeta) 1.25 mg BIDWMEALS PO Last administered on 09/29/18at 08:12; Start 09/27/18 at 11:30 Insulin Glargine (Lantus) 12 units QHS SQ Last administered on 09/28/18at 21:33; Start 09/27/18 at 21:00 Dronabinol (Marinol) 2.5 mg BIDACLD PO ; Start 09/29/18 at 11:30 Active Scripts Active Reported Lisinopril 40 Mg Tablet 1 Tab PO DAILY Vitals/I & O Vital Sign - Last 24 Hours 09/28/18 09/28/18 09/28/18 09/28/18 15:00 19:00 20:00 23:00 Temp 98.4 99.4 98.7 98.4 99.4 98.7 Pulse 100 114 101 Resp 16 18 18 B/P (MAP) 122/77 (92) 135/90 (105) 122/75 (91) Pulse Ox 96 95 96 O2 Delivery Room Air Room Air Room Air Room Air 09/29/18 09/29/18 09/29/18 09/29/18 03:00 07:00 08:00 11:00 Temp 98.0 98.4 98.2 98.0 98.4 98.2 Pulse 97 89 105 Resp 18 14 16 B/P (MAP) 131/83 (99) 139/70 (93) 119/76 (90) Pulse Ox 98 96 95 O2 Delivery Room Air Room Air Room Air Room Air Intake and Output 09/28/18 09/28/18 09/29/18 15:00 23:00 07:00 Intake Total 300 ml 240 ml Balance 300 ml 240 ml BRENT VILLALOBOS III DO Sep 29, 2018 12:21
[2018-09-29] MEDS: DRONABINOL 2.5 MG CAPSULE. PO SCH ×2 (12:27→17:17)
--- NOTE | 2018-09-29 13:02 | RAD ---
Renal ultrasound, 09/29/2018: HISTORY: Pyuria The right kidney measures 10.6 cm in length while the left kidney measures 11.7 cm. There is mild bilateral hydronephrosis. There is mild renal cortical scarring. No renal mass is evident. The bladder is distended. There is a heterogeneous mass along its base compatible with an enlarged prostate. The balloon of the Yun catheter appears to lie within the inferior aspect of the prostate gland, presumably in the prostatic urethra. IMPRESSION: 1. Bilateral renal cortical scarring. 2. Mild bilateral hydronephrosis has developed since 04/08/2016. 3. Enlarged prostate gland with malposition of the Yun catheter lying within the prostatic urethra. There is associated bladder distention which is likely the cause of the mild bilateral hydronephrosis. Note: The patient's nurse was notified of the catheter malposition at the time of the exam by the neurodiagnostic technologist. Electronically signed by: Deondre Estrada MD (09/29/2018 12:59 PM) [facility], [place]
[2018-09-29 13:40] LABS: CALCIUM 9.1 mg/dL (8.5-10.1); CREATININE 2.4 mg/dL (0.7-1.3); POTASSIUM 3.8 mmol/L (3.5-5.1)
--- NOTE | 2018-09-29 14:25 | PDOC ---
SUBJECTIVE ROS Yun was not draining, replaced- Now good UOP OBJECTIVE Vital Signs Vital Signs Date Time Temp Pulse Resp B/P (MAP) Pulse Ox O2 Delivery O2 Flow Rate FiO2 09/29/18 11:00 98.2 105 16 119/76 (90) 95 Room Air 98.2 I & 0 Intake and Output 09/29/18 07:00 Intake Total 540 ml Balance 540 ml Intake Oral 540 ml # Bowel Movements 2 PHYSICAL EXAM Physical Exam GENERAL: no acute distress HEENT: Oral mucosa moist. NECK: Supple. JVD. LUNGS: Clear bilaterally. Non labored HEART: S1, S2 with no gallops or murmurs. ABDOMEN: Soft, nontender, nondistended. GENITOURINARY: Yun in place. NEUROLOGIC: Alert, awake, confused baseline SKIN : Warm, dry. No generalized rash Yun DIAGNOSIS/ASSESSMENT Assessment & Plan HANNA- Suspect due to Dehydration, Poor PO intake , UTI Non Oliguric Renal function was Improving, Ordered labs Noted worsening- suspect 2/2 to Urinary retention- Mal function Yun Replaced with good UOP, repeat labs in am Baseline unknown Urinary tract infection- On Abx per ID . Severe hyperglycemia- at presentation Glucose 1010 Primary managing Lactic acidosis, multifactorial. Weight loss with right lung mass Will Likely need Ct scan - Can be done without Contrast due to HANNA Hypernatremia -Improving Encourage water intake Metabolic acidosis- Resolved Dw RN COMMENT/RELEVANT DATA Meds Current Medications Medications (Trade) Dose Ordered Sig/Tiara Start Time Stop Time Status Last Admin Dose Admin Dextrose (Dextrose 50%-Water Syringe) 12.5 gm PRN Q15MIN PRN 09/27/18 09:15 Dronabinol (Marinol) 2.5 mg BIDACLD 09/29/18 11:30 09/29/18 12:27 2.5 MG Glyburide (Diabeta) 1.25 mg BIDWMEALS 09/27/18 11:30 09/29/18 08:12 1.25 MG Insulin Glargine (Lantus) 12 units QHS 09/27/18 21:00 09/28/18 21:33 12 UNITS Insulin Human Lispro (HumaLOG) 0-9 UNITS TIDWMEALS 09/27/18 12:00 09/29/18 12:33 5 UNITS Insulin Human Regular 150 ml @ 0 mls/hr 1X ONCE 09/26/18 17:30 09/26/18 17:31 DC 09/26/18 18:31 19 MLS/HR Insulin Human Regular (HumuLIN R VIAL) 10 unit 1X ONCE 09/26/18 17:30 09/26/18 17:31 DC 09/26/18 18:28 10 UNIT Insulin Human Regular 150 unit/ Sodium Chloride 151.5 ml @ 0 mls/hr CONT PRN PRN 09/26/18 21:15 09/27/18 15:56 DC Lactobacillus Rhamnosus (Culturelle) 1 cap BID 09/27/18 21:00 09/29/18 08:12 1 CAP Piperacillin Sod/ Tazobactam Sod 2.25 gm/Sodium Chloride 50 ml @ 100 mls/hr Q8HRS 09/27/18 06:00 09/29/18 05:50 100 MLS/HR Piperacillin Sod/ Tazobactam Sod 3.375 gm/Sodium Chloride 50 ml @ 100 mls/hr ONCE ONCE 09/26/18 17:45 09/26/18 18:14 DC 09/26/18 17:42 100 MLS/HR Potassium Chloride/Water 100 ml @ 100 mls/hr PRN Q1HR PRN 09/26/18 21:15 09/27/18 15:56 DC Sodium Chloride 1,000 ml @ 125 mls/hr 1X ONCE 09/27/18 04:15 09/27/18 12:14 DC 09/27/18 05:02 125 MLS/HR Vancomycin HCl 1.5 gm/Sodium Chloride 500 ml @ 250 mls/hr 1X ONCE 09/26/18 18:15 09/26/18 20:14 DC 09/26/18 18:49 250 MLS/HR Lab Laboratory Tests Test 09/28/18 16:39 09/28/18 20:19 09/29/18 07:35 09/29/18 11:45 Glucose (Fingerstick) 141 mg/dL (70-99) 200 mg/dL (70-99) 152 mg/dL (70-99) 223 mg/dL (70-99) Test 09/29/18 13:20 Sodium Level 147 mmol/L (136-145) Potassium Level 3.8 mmol/L (3.5-5.1) Chloride Level 112 mmol/L (98-107) Carbon Dioxide Level 23 mmol/L (21-32) Anion Gap 12 (6-14) Blood Urea Nitrogen 37 mg/dL (8-26) Creatinine 2.4 mg/dL (0.7-1.3) Estimated GFR (Cockcroft-Gault) 26.0 Glucose Level 299 mg/dL (70-99) Calcium Level 9.1 mg/dL (8.5-10.1) Results All relevant outside records, renal labs, imaging studies, telemetry/EKG's were reviewed. RITU STEPHENS MD Sep 29, 2018 14:25
[2018-09-29 15:00] VITALS: BP 117/66
[2018-09-29 19:00] VITALS: BP 112/61
[2018-09-29] MEDS: INSULIN GLARGINE 300 UNITS/3 ML INSULN.PEN. SQ SCH (21:19)
[2018-09-29 22:49] VITALS: BP 106/66
[2018-09-30 03:00] VITALS: BP 130/71
[2018-09-30] MEDS: PIPERACILLIN/TAZOBACTAM 2.25 GM in IV NORMAL SALINE 50ML 50 ML IV SCH ×3 (06:09→21:54)
[2018-09-30 07:00] VITALS: BP 123/64
[2018-09-30] MEDS: INSULIN LISPRO 300 UNITS/3 ML INSULN.PEN. SQ SCH ×3 (08:00→17:00)
[2018-09-30] MEDS: LACTOBACILLUS RHAMNOSUS GG 1 CAPSULE. PO SCH ×2 (08:12→21:55)
[2018-09-30] MEDS: glyBURIDE 1.25 MG TABLET PO SCH ×2 (08:12→16:43)
--- NOTE | 2018-09-30 09:17 | PDOC ---
Infectious Disease Note Subjective: Subjective Pt is without complaints says feels ok somewhat confused comfortable no new issues per rn Dictating discharge today to problem Augmentin by primarycare ROS: ROS Negative except for above. Vital Signs: Vital Signs Vital Signs Date Time Temp Pulse Resp B/P (MAP) Pulse Ox O2 Delivery O2 Flow Rate FiO2 09/30/18 07:00 98.8 83 18 123/64 (83) 93 Room Air 98.8 Physical Exam: PHYSICAL EXAM GENERAL: Alert, awake, smiling male in no acute distress, lying comfortably in bed, pleasantly confused. HEENT: Normocephalic, atraumatic, anicteric. No thrush. Oral mucosa moist. NECK: Supple. JVD. LUNGS: Clear bilaterally. No wheezing. HEART: S1, S2 with no gallops or murmurs. ABDOMEN: Soft, nontender, nondistended. GENITOURINARY: Yun in place. NEUROLOGIC: Alert, awake, pleasantly confused baseline per daughter at bedside. PSYCHIATRIC: Normal affect. DERMATOLOGIC: Warm, dry. No generalized rash. Medications: Inpatient Meds: Current Medications Medications (Trade) Dose Ordered Sig/Tiara Start Time Stop Time Status Last Admin Dose Admin Dextrose (Dextrose 50%-Water Syringe) 12.5 gm PRN Q15MIN PRN 09/27/18 09:15 Dronabinol (Marinol) 2.5 mg BIDACLD 09/29/18 11:30 09/29/18 17:17 2.5 MG Glyburide (Diabeta) 1.25 mg BIDWMEALS 09/27/18 11:30 09/30/18 08:12 1.25 MG Insulin Glargine (Lantus) 12 units QHS 09/27/18 21:00 09/29/18 21:19 12 UNITS Insulin Human Lispro (HumaLOG) 0-9 UNITS TIDWMEALS 09/27/18 12:00 09/29/18 17:21 5 UNITS Insulin Human Regular 150 ml @ 0 mls/hr 1X ONCE 09/26/18 17:30 09/26/18 17:31 DC 09/26/18 18:31 19 MLS/HR Insulin Human Regular (HumuLIN R VIAL) 10 unit 1X ONCE 09/26/18 17:30 09/26/18 17:31 DC 09/26/18 18:28 10 UNIT Insulin Human Regular 150 unit/ Sodium Chloride 151.5 ml @ 0 mls/hr CONT PRN PRN 09/26/18 21:15 09/27/18 15:56 DC Lactobacillus Rhamnosus (Culturelle) 1 cap BID 09/27/18 21:00 09/30/18 08:12 1 CAP Piperacillin Sod/ Tazobactam Sod 2.25 gm/Sodium Chloride 50 ml @ 100 mls/hr Q8HRS 09/27/18 06:00 09/30/18 06:09 100 MLS/HR Piperacillin Sod/ Tazobactam Sod 3.375 gm/Sodium Chloride 50 ml @ 100 mls/hr ONCE ONCE 09/26/18 17:45 09/26/18 18:14 DC 09/26/18 17:42 100 MLS/HR Potassium Chloride/Water 100 ml @ 100 mls/hr PRN Q1HR PRN 09/26/18 21:15 09/27/18 15:56 DC Sodium Chloride 1,000 ml @ 125 mls/hr 1X ONCE 09/27/18 04:15 09/27/18 12:14 DC 09/27/18 05:02 125 MLS/HR Vancomycin HCl 1.5 gm/Sodium Chloride 500 ml @ 250 mls/hr 1X ONCE 09/26/18 18:15 09/26/18 20:14 DC 09/26/18 18:49 250 MLS/HR Labs: Lab Laboratory Tests Test 09/29/18 11:45 09/29/18 13:20 09/29/18 16:41 09/29/18 21:03 Glucose (Fingerstick) 223 mg/dL (70-99) 217 mg/dL (70-99) 295 mg/dL (70-99) Sodium Level 147 mmol/L (136-145) Potassium Level 3.8 mmol/L (3.5-5.1) Chloride Level 112 mmol/L (98-107) Carbon Dioxide Level 23 mmol/L (21-32) Anion Gap 12 (6-14) Blood Urea Nitrogen 37 mg/dL (8-26) Creatinine 2.4 mg/dL (0.7-1.3) Estimated GFR (Cockcroft-Gault) 26.0 Glucose Level 299 mg/dL (70-99) Calcium Level 9.1 mg/dL (8.5-10.1) Test 09/30/18 07:21 Glucose (Fingerstick) 143 mg/dL (70-99) Micro BC neg so far RUN DATE: 09/29/18 PAGE 1 RUN TIME: 1413 [facility] [address] [place] [address] Antonio Mcgovern M.D., Natural Foods Clerk ---- PATIENT: CAROLINA GUILLERMO ACCT: [id number] LOC: [address] [place] [address] U: [id number] AGE/SX: 83/M ROOM: 506 RE09/26/[address]: BRENT VILLALOBOS III, DO : 1935 BED: 1 DIS: STATUS: ADM IN TLOC: SPEC #: [id number] MUNIR: 09/26/18 STATUS: RES REQ #: [id number] RECD: 09/26/[address]: AMALIA SHETH MD SOURCE: VOID ENTR: 09/26/[address]: BRENT VILLALOBOS III, DO [facility]: ANA LILIA HE MD ORDERED: URINE CULTURE Procedure Result URINE CULTURE Preliminary Preliminary report URINE CULTURE RES 1 Preliminary Gram negative rods Greater than 100,000 colony forming units per mL Performed at: DA - [facility] [address] [facility] [address], [place], [place] [id number] Buffing [employer] Sueding Machine Operator: CESAR Thomas MD, Phone: [phone] Objective: Assessment: 1. Sepsis source Likely with Urinary tract infection.GNR ,ID pending Improved 2. Severe hyperglycemia. Improved 3. Lactic acidosis, multifactorial. 4. Renal failure. 5. Weight loss with right lung mass. 6. Hyponatremia. 7. Metabolic acidosis, improving. Plan: Plan of Care 1. Continue empiric Zosyn, renal dosing. Urine culture gram-negative guard ID and TIFFANIE still pending Team is running for discharge today on Augmentin 2. Follow up ID and TIFFANIE of gram-negative rylie in urine culture Will Need adjustment of antibiotics if gram-negative is pseudomonas as Augmentin will not cover ID will sign out call with any questions . D/W Nursing staff MATEO RUVALCABA MD Sep 30, 2018 09:17
--- NOTE | 2018-09-30 09:35 | DS ---
DATE OF DISCHARGE: 09/30/2018 ADMISSION DIAGNOSES: Sepsis and severe hyperglycemia, new lung mass, diabetic ketoacidosis. DISCHARGE DIAGNOSES: Resolving sepsis; resolving hyperglycemia; diabetes; lung mass (the mass appears to possibly be benign, the family has chosen not to biopsy it and instead do imaging every few months and we agree); resolving diabetic ketoacidosis. CONSULTS: Dr. Isaacs and Dr. [place]. PROCEDURES: None. HOSPITAL COURSE: The patient is a pleasant elderly male, who presented with mental status change and sepsis. We admitted the patient. We gave him IV antibiotics and DKA protocol. He is now on the medical floor, doing well. I saw him and examined him this morning. His heart tones are normal. He looks great. His lungs are clear. He is alert and oriented. We plan to discharge to assisted at [facility]. DISPOSITION: [facility]. ACTIVITY: As tolerated. DIET: Low sodium. MEDICATIONS: Please see the MRAD. I did give him prescriptions for Marinol 2.5 b.i.d. and Augmentin 875 p.o. b.i.d. and then I resumed his home meds which are basically only lisinopril 10 p.o. q. day. I did stop his home metformin because it was decreasing his appetite. BRENT VILLALOBOS DO DR: CLAUDIO/ines JOB#: [id number] / [id number]
--- NOTE | 2018-09-30 10:59 | PDOC ---
PULMONARY PROGRESS NOTES Subjective PT NOT MORE SOA NO DISTRESS Vitals Vital Signs Date Time Temp Pulse Resp B/P (MAP) Pulse Ox O2 Delivery O2 Flow Rate FiO2 09/30/18 07:00 98.8 83 18 123/64 (83) 93 Room Air 98.8 ROS: No Nausea, No Chest Pain, No Abdominal Pain, No Increase Cough Lungs: Clear Cardiovascular: S1, S2 Abdomen: Soft Neuro Exam: Alert Extremities: No Edema Skin: Warm, Dry Labs Laboratory Tests Test 09/28/18 11:03 09/28/18 11:42 09/28/18 16:39 09/28/18 20:19 Erythrocyte Sedimentation Rate 36 (0-15) Glucose (Fingerstick) 241 mg/dL (70-99) 141 mg/dL (70-99) 200 mg/dL (70-99) Test 09/29/18 07:35 09/29/18 11:45 09/29/18 13:20 09/29/18 16:41 Glucose (Fingerstick) 152 mg/dL (70-99) 223 mg/dL (70-99) 217 mg/dL (70-99) Sodium Level 147 mmol/L (136-145) Potassium Level 3.8 mmol/L (3.5-5.1) Chloride Level 112 mmol/L (98-107) Carbon Dioxide Level 23 mmol/L (21-32) Anion Gap 12 (6-14) Blood Urea Nitrogen 37 mg/dL (8-26) Creatinine 2.4 mg/dL (0.7-1.3) Estimated GFR (Cockcroft-Gault) 26.0 Glucose Level 299 mg/dL (70-99) Calcium Level 9.1 mg/dL (8.5-10.1) Test 09/29/18 21:03 09/30/18 07:21 Glucose (Fingerstick) 295 mg/dL (70-99) 143 mg/dL (70-99) Laboratory Tests Test 09/29/18 11:45 09/29/18 13:20 09/29/18 16:41 09/29/18 21:03 Glucose (Fingerstick) 223 mg/dL (70-99) 217 mg/dL (70-99) 295 mg/dL (70-99) Sodium Level 147 mmol/L (136-145) Potassium Level 3.8 mmol/L (3.5-5.1) Chloride Level 112 mmol/L (98-107) Carbon Dioxide Level 23 mmol/L (21-32) Anion Gap 12 (6-14) Blood Urea Nitrogen 37 mg/dL (8-26) Creatinine 2.4 mg/dL (0.7-1.3) Estimated GFR (Cockcroft-Gault) 26.0 Glucose Level 299 mg/dL (70-99) Calcium Level 9.1 mg/dL (8.5-10.1) Test 09/30/18 07:21 Glucose (Fingerstick) 143 mg/dL (70-99) Medications Active Scripts Medications Dose Route/Sig Max Daily Dose Days Date Category Lisinopril 40 Mg Tablet 1 Tab PO DAILY 09/27/18 Reported Impression . IMPRESSION: 1. Abnormal chest x-ray revealing right-sided lung mass. 2. History of tobacco dependence, quit 25 years ago. 3. Suspect chronic obstructive pulmonary disease. 4. Gzmdm-kk-xldrxtl metabolic, possible toxic encephalopathy. 5. Urinary tract infection. 6. Type 2 diabetes. 7. Acute on chronic renal failure. CT CHEST IMPRESSION: 1. Peripheral right lung mass centered along the lateral margin of the minor fissure which demonstrates heterogeneous low density internally. Diagnostic considerations include a pulmonary hamartoma, mucinous or necrotic neoplasm or liposarcoma. Correlation with any older chest imaging if available would be most helpful in evaluating stability. 2. Coronary artery calcifications. Plan . FOLLOW UP IN OFFICE JAN 3 I WILL S/O CALL IF NEEDED REVIEWED THE CT IT APPEARS BENIGN D/W DAUGHTER GAVE HER OPTIONS OF FNA OR CLOSE WATCH FAMILY WISHES TO PROCEED WITH REPEAT CT OUTPT IN 3-4 MONTHS MELISSA SALGUERO MD Sep 30, 2018 10:59
[2018-09-30 11:00] VITALS: BP 104/52
[2018-09-30] MEDS: DRONABINOL 2.5 MG CAPSULE. PO SCH ×2 (11:38→16:43)
--- NOTE | 2018-09-30 11:40 | NUR ---
ESTEFANI following pt. Insurance has approved SNU. Pt's choice and rights forms signed by pt's daughter, Lisa and copies on chart. A copy also provided to daughter. Awaiting on Physician to complete dc instruction to arrange transportation. Physician notified. Addendum: 09/30/18 at 1458 by ROSENDO JARA Orders faxed to [facility]. Pt will transport via central transport. RN notified.
[2018-09-30 13:10] LABS: CALCIUM 9.2 mg/dL (8.5-10.1); GFR 32.1; POTASSIUM 3.7 mmol/L (3.5-5.1)
--- NOTE | 2018-09-30 13:27 | SNU/HH DC ---
DISCHARGE ORDERS DISCHARGE INFORMATION: FINAL DIAGNOSIS Problems Medical Problems: (1) Acute renal failure Status: Acute (2) DKA (diabetic ketoacidoses) Status: Acute (3) Hyperosmolar hyperglycemic coma due to diabetes mellitus without ketoacidosis Status: Acute (4) Hyponatremia Status: Acute (5) Lung mass Status: Acute (6) Severe dehydration Status: Acute (7) Severe hyperglycemia due to diabetes mellitus Status: Acute (8) Severe sepsis Status: Acute (9) Toxic encephalopathy Status: Acute (10) Urinary tract infection Status: Acute CONDITION ON DISCHARGE: Stable CODE STATUS: Code Status: Full CUSTODIAL: SNF STAY <30 DAYS: Yes HOSPICE: HOSPICE: No HOSPICE EVAL & TREAT: No LTAC: ADMIT TO LTAC: No POST DISCHARGE ORDERS: ACTIVITY ORDERS: Activity as tolerated, Bedrest today WEIGHT BEARING STATUS: As tolerated DIET AFTER DISCHARGE: ADA WOUND/INCISION CARE: No wound care needed CHECKS AFTER DISCHARGE: CHECKS AFTER DISCHARGE: Check blood press - daily, Check blood sugar, ac/hs, Check your Temp as needed, Weigh Yourself Daily FOLLOW-UP: ADDITIONAL FOLLOW-UP: primary care physician as needed TREATMENT/EQUIPMENT ORDERS: Physical Therapy For: Evalulation/Treatment Occupational Therapy For: Evaluation/Treatment Speech Language Pathology For: Evaluation/Treatment DISCHARGE MEDICATIONS: Home Meds Reported Medications Lisinopril (LISINOPRIL) 40 Mg Tablet, 1 TAB PO DAILY for HYPERTENSION, #90 TAB 1 Refill 09/27/18 BRENT VILLALOBOS III DO Sep 30, 2018 13:26
[2018-09-30 14:54] VITALS: BP 96/54
--- NOTE | 2018-09-30 15:43 | PDOC ---
SUBJECTIVE ROS Stable OBJECTIVE Vital Signs Vital Signs Date Time Temp Pulse Resp B/P (MAP) Pulse Ox O2 Delivery O2 Flow Rate FiO2 09/30/18 14:54 98.1 104 18 96/54 (68) 94 Room Air 98.1 I & 0 Intake and Output 09/30/18 07:00 Intake Total 840 ml Output Total 1350 ml Balance -510 ml Intake Oral 840 ml Output Urine Total 1350 ml # Bowel Movements 4 PHYSICAL EXAM Physical Exam GENERAL: no acute distress HEENT: Oral mucosa moist. NECK: Supple. JVD. LUNGS: Clear bilaterally. Non labored HEART: S1, S2 with no gallops or murmurs. ABDOMEN: Soft, nontender, nondistended. GENITOURINARY: Yun in place. NEUROLOGIC: Alert, awake, confused baseline SKIN : Warm, dry. No generalized rash Yun DIAGNOSIS/ASSESSMENT Assessment & Plan HANNA- Suspect due to Dehydration, Poor PO intake , UTI Non Oliguric, improving renal function Malfunction Yun on 09/29 Baseline unknown Urinary tract infection- On Abx per ID . Severe hyperglycemia- at presentation Glucose 1010 Primary managing Lactic acidosis, multifactorial. Weight loss with right lung mass Will Likely need Ct scan - Can be done without Contrast due to HANNA Hypernatremia - Higher when corrected for Glucose Encourage water intake Metabolic acidosis- Resolved COMMENT/RELEVANT DATA Meds Current Medications Medications (Trade) Dose Ordered Sig/Tiara Start Time Stop Time Status Last Admin Dose Admin Dextrose (Dextrose 50%-Water Syringe) 12.5 gm PRN Q15MIN PRN 09/27/18 09:15 Dronabinol (Marinol) 2.5 mg BIDACLD 09/29/18 11:30 09/30/18 11:38 2.5 MG Glyburide (Diabeta) 1.25 mg BIDWMEALS 09/27/18 11:30 09/30/18 08:12 1.25 MG Insulin Glargine (Lantus) 12 units QHS 09/27/18 21:00 09/29/18 21:19 12 UNITS Insulin Human Lispro (HumaLOG) 0-9 UNITS TIDWMEALS 09/27/18 12:00 09/30/18 13:02 7 UNITS Insulin Human Regular 150 ml @ 0 mls/hr 1X ONCE 09/26/18 17:30 09/26/18 17:31 DC 09/26/18 18:31 19 MLS/HR Insulin Human Regular (HumuLIN R VIAL) 10 unit 1X ONCE 09/26/18 17:30 09/26/18 17:31 DC 09/26/18 18:28 10 UNIT Insulin Human Regular 150 unit/ Sodium Chloride 151.5 ml @ 0 mls/hr CONT PRN PRN 09/26/18 21:15 09/27/18 15:56 DC Lactobacillus Rhamnosus (Culturelle) 1 cap BID 09/27/18 21:00 09/30/18 08:12 1 CAP Piperacillin Sod/ Tazobactam Sod 2.25 gm/Sodium Chloride 50 ml @ 100 mls/hr Q8HRS 09/27/18 06:00 09/30/18 06:09 100 MLS/HR Piperacillin Sod/ Tazobactam Sod 3.375 gm/Sodium Chloride 50 ml @ 100 mls/hr ONCE ONCE 09/26/18 17:45 09/26/18 18:14 DC 09/26/18 17:42 100 MLS/HR Potassium Chloride/Water 100 ml @ 100 mls/hr PRN Q1HR PRN 09/26/18 21:15 09/27/18 15:56 DC Sodium Chloride 1,000 ml @ 125 mls/hr 1X ONCE 09/27/18 04:15 09/27/18 12:14 DC 09/27/18 05:02 125 MLS/HR Vancomycin HCl 1.5 gm/Sodium Chloride 500 ml @ 250 mls/hr 1X ONCE 09/26/18 18:15 09/26/18 20:14 DC 09/26/18 18:49 250 MLS/HR Lab Laboratory Tests Test 09/29/18 16:41 09/29/18 21:03 09/30/18 07:21 09/30/18 11:51 Glucose (Fingerstick) 217 mg/dL (70-99) 295 mg/dL (70-99) 143 mg/dL (70-99) 291 mg/dL (70-99) Test 09/30/18 12:20 Sodium Level 146 mmol/L (136-145) Potassium Level 3.7 mmol/L (3.5-5.1) Chloride Level 111 mmol/L (98-107) Carbon Dioxide Level 22 mmol/L (21-32) Anion Gap 13 (6-14) Blood Urea Nitrogen 29 mg/dL (8-26) Creatinine 2.0 mg/dL (0.7-1.3) Estimated GFR (Cockcroft-Gault) 32.1 Glucose Level 352 mg/dL (70-99) Calcium Level 9.2 mg/dL (8.5-10.1) Results All relevant outside records, renal labs, imaging studies, telemetry/EKG's were reviewed. RITU STEPHENS MD Sep 30, 2018 15:43
--- NOTE | 2018-09-30 16:13 | NUR ---
SW following pt. Pt will need PICC line placement to continue IV abx treatment. Pt unable to dc to [facility] today.
[2018-09-30 19:00] VITALS: BP 102/59
--- NOTE | 2018-09-30 20:00 | NUR ---
Patient's daughter notified this RN that she wanted to hold off on placing PICC line this evening 09/30/18. Provided approximately 45 minutes worth of education about risks, benefits, process, etc. Patient's daughter stated she would speak with her brother and "the doctor" tomorrow about risks, benefits, etc. Nano, Nursing Loss Control Manager, notified. Will pass along to day RN.
[2018-09-30] MEDS: INSULIN GLARGINE 300 UNITS/3 ML INSULN.PEN. SQ SCH (22:00)
[2018-09-30 23:00] VITALS: BP 144/72
[2018-10-01 03:00] VITALS: BP 113/66
[2018-10-01] MEDS: PIPERACILLIN/TAZOBACTAM 2.25 GM in IV NORMAL SALINE 50ML 50 ML IV SCH ×2 (06:39→14:00)
[2018-10-01 07:00] VITALS: BP 124/64
[2018-10-01] MEDS: INSULIN LISPRO 300 UNITS/3 ML INSULN.PEN. SQ SCH ×2 (08:00→12:25)
--- NOTE | 2018-10-01 09:10 | PDOC ---
PULMONARY PROGRESS NOTES Subjective PT NOT MORE SOA NO DISTRESS Vitals Vital Signs Date Time Temp Pulse Resp B/P (MAP) Pulse Ox O2 Delivery O2 Flow Rate FiO2 10/01/18 07:00 98.6 90 16 124/64 (84) 95 Room Air 98.6 ROS: No Nausea, No Chest Pain, No Abdominal Pain, No Increase Cough Lungs: Clear Cardiovascular: S1, S2 Abdomen: Soft Neuro Exam: Alert Extremities: No Edema Skin: Warm, Dry Labs Laboratory Tests Test 09/29/18 11:45 09/29/18 13:20 09/29/18 16:41 09/29/18 21:03 Glucose (Fingerstick) 223 mg/dL (70-99) 217 mg/dL (70-99) 295 mg/dL (70-99) Sodium Level 147 mmol/L (136-145) Potassium Level 3.8 mmol/L (3.5-5.1) Chloride Level 112 mmol/L (98-107) Carbon Dioxide Level 23 mmol/L (21-32) Anion Gap 12 (6-14) Blood Urea Nitrogen 37 mg/dL (8-26) Creatinine 2.4 mg/dL (0.7-1.3) Estimated GFR (Cockcroft-Gault) 26.0 Glucose Level 299 mg/dL (70-99) Calcium Level 9.1 mg/dL (8.5-10.1) Test 09/30/18 07:21 09/30/18 11:51 09/30/18 12:20 09/30/18 16:32 Glucose (Fingerstick) 143 mg/dL (70-99) 291 mg/dL (70-99) 246 mg/dL (70-99) Sodium Level 146 mmol/L (136-145) Potassium Level 3.7 mmol/L (3.5-5.1) Chloride Level 111 mmol/L (98-107) Carbon Dioxide Level 22 mmol/L (21-32) Anion Gap 13 (6-14) Blood Urea Nitrogen 29 mg/dL (8-26) Creatinine 2.0 mg/dL (0.7-1.3) Estimated GFR (Cockcroft-Gault) 32.1 Glucose Level 352 mg/dL (70-99) Calcium Level 9.2 mg/dL (8.5-10.1) Test 09/30/18 20:53 10/01/18 07:41 Glucose (Fingerstick) 309 mg/dL (70-99) 180 mg/dL (70-99) Laboratory Tests Test 09/30/18 11:51 09/30/18 12:20 09/30/18 16:32 09/30/18 20:53 Glucose (Fingerstick) 291 mg/dL (70-99) 246 mg/dL (70-99) 309 mg/dL (70-99) Sodium Level 146 mmol/L (136-145) Potassium Level 3.7 mmol/L (3.5-5.1) Chloride Level 111 mmol/L (98-107) Carbon Dioxide Level 22 mmol/L (21-32) Anion Gap 13 (6-14) Blood Urea Nitrogen 29 mg/dL (8-26) Creatinine 2.0 mg/dL (0.7-1.3) Estimated GFR (Cockcroft-Gault) 32.1 Glucose Level 352 mg/dL (70-99) Calcium Level 9.2 mg/dL (8.5-10.1) Test 10/01/18 07:41 Glucose (Fingerstick) 180 mg/dL (70-99) Medications Active Scripts Medications Dose Route/Sig Max Daily Dose Days Date Category Lisinopril 40 Mg Tablet 1 Tab PO DAILY 09/27/18 Reported Impression . IMPRESSION: 1. Abnormal chest x-ray revealing right-sided lung mass. 2. History of tobacco dependence, quit 25 years ago. 3. Suspect chronic obstructive pulmonary disease. 4. Nqilm-qo-lxnavaf metabolic, possible toxic encephalopathy. 5. Urinary tract infection. 6. Type 2 diabetes. 7. Acute on chronic renal failure. CT CHEST IMPRESSION: 1. Peripheral right lung mass centered along the lateral margin of the minor fissure which demonstrates heterogeneous low density internally. Diagnostic considerations include a pulmonary hamartoma, mucinous or necrotic neoplasm or liposarcoma. Correlation with any older chest imaging if available would be most helpful in evaluating stability. 2. Coronary artery calcifications. Plan . FOLLOW UP IN OFFICE JAN 3 I WILL S/O CALL IF NEEDED REVIEWED THE CT IT APPEARS BENIGN D/W DAUGHTER GAVE HER OPTIONS OF FNA OR CLOSE WATCH FAMILY WISHES TO PROCEED WITH REPEAT CT OUTPT IN 3-4 MONTHS MELISSA SALGUERO MD Oct 01, 2018 09:10
--- NOTE | 2018-10-01 09:43 | PDOC ---
Infectious Disease Note Subjective: Subjective Pt is without complaints says feels ok somewhat confused comfortable no new issues per rn ROS: ROS limited but as above Vital Signs: Vital Signs Vital Signs Date Time Temp Pulse Resp B/P (MAP) Pulse Ox O2 Delivery O2 Flow Rate FiO2 10/01/18 07:00 98.6 90 16 124/64 (84) 95 Room Air 98.6 Physical Exam: PHYSICAL EXAM GENERAL: Alert, awake, smiling male in no acute distress, lying comfortably in bed, pleasantly confused. HEENT: Normocephalic, atraumatic, anicteric. No thrush. Oral mucosa moist. NECK: Supple. JVD. LUNGS: Clear bilaterally. No wheezing. HEART: S1, S2 with no gallops or murmurs. ABDOMEN: Soft, nontender, nondistended. GENITOURINARY: Yun in place. NEUROLOGIC: Alert, awake, pleasantly confused baseline per daughter at bedside. PSYCHIATRIC: Normal affect. DERMATOLOGIC: Warm, dry. No generalized rash. Medications: Inpatient Meds: Current Medications Medications (Trade) Dose Ordered Sig/Tiara Start Time Stop Time Status Last Admin Dose Admin Dextrose (Dextrose 50%-Water Syringe) 12.5 gm PRN Q15MIN PRN 09/27/18 09:15 Dronabinol (Marinol) 2.5 mg BIDACLD 09/29/18 11:30 09/30/18 16:43 2.5 MG Glyburide (Diabeta) 1.25 mg BIDWMEALS 09/27/18 11:30 09/30/18 16:43 1.25 MG Insulin Glargine (Lantus) 12 units QHS 09/27/18 21:00 09/30/18 22:00 12 UNITS Insulin Human Lispro (HumaLOG) 0-9 UNITS TIDWMEALS 09/27/18 12:00 09/30/18 13:02 7 UNITS Insulin Human Regular 150 ml @ 0 mls/hr 1X ONCE 09/26/18 17:30 09/26/18 17:31 DC 09/26/18 18:31 19 MLS/HR Insulin Human Regular (HumuLIN R VIAL) 10 unit 1X ONCE 09/26/18 17:30 09/26/18 17:31 DC 09/26/18 18:28 10 UNIT Insulin Human Regular 150 unit/ Sodium Chloride 151.5 ml @ 0 mls/hr CONT PRN PRN 09/26/18 21:15 09/27/18 15:56 DC Lactobacillus Rhamnosus (Culturelle) 1 cap BID 09/27/18 21:00 09/30/18 21:55 1 CAP Piperacillin Sod/ Tazobactam Sod 2.25 gm/Sodium Chloride 50 ml @ 100 mls/hr Q8HRS 09/27/18 06:00 10/01/18 06:39 100 MLS/HR Piperacillin Sod/ Tazobactam Sod 3.375 gm/Sodium Chloride 50 ml @ 100 mls/hr ONCE ONCE 09/26/18 17:45 09/26/18 18:14 DC 09/26/18 17:42 100 MLS/HR Potassium Chloride/Water 100 ml @ 100 mls/hr PRN Q1HR PRN 09/26/18 21:15 09/27/18 15:56 DC Sodium Chloride 1,000 ml @ 125 mls/hr 1X ONCE 09/27/18 04:15 09/27/18 12:14 DC 09/27/18 05:02 125 MLS/HR Vancomycin HCl 1.5 gm/Sodium Chloride 500 ml @ 250 mls/hr 1X ONCE 09/26/18 18:15 09/26/18 20:14 DC 09/26/18 18:49 250 MLS/HR Labs: Lab Laboratory Tests Test 09/30/18 11:51 09/30/18 12:20 09/30/18 16:32 09/30/18 20:53 Glucose (Fingerstick) 291 mg/dL (70-99) 246 mg/dL (70-99) 309 mg/dL (70-99) Sodium Level 146 mmol/L (136-145) Potassium Level 3.7 mmol/L (3.5-5.1) Chloride Level 111 mmol/L (98-107) Carbon Dioxide Level 22 mmol/L (21-32) Anion Gap 13 (6-14) Blood Urea Nitrogen 29 mg/dL (8-26) Creatinine 2.0 mg/dL (0.7-1.3) Estimated GFR (Cockcroft-Gault) 32.1 Glucose Level 352 mg/dL (70-99) Calcium Level 9.2 mg/dL (8.5-10.1) Test 10/01/18 07:41 Glucose (Fingerstick) 180 mg/dL (70-99) Micro BC neg so far RUN DATE: 09/29/18 PAGE 1 RUN TIME: 1413 Laboratory [address] [place] [address] Antonio Mcgovern M.D., Prototype Deicer Assembler PATIENT: CAROLINA GUILLERMO ACCT: [id number] LOC: [address] [place] [address] U: [id number] AGE/SX: 83/M ROOM: [facility] RE09/26/[address]: BRENT VILLALOBOS III, DO : 1935 BED: 1 DIS: STATUS: ADM IN TLOC: SPEC #: [id number] MUNIR: 09/26/18 STATUS: RES REQ #: [id number] RECD: 09/26/[address]: AMALIA SHETH MD SOURCE: VOID ENTR: 09/26/[address]: BRENT VILLALOBOS III, DO SPDESC: ANA LILIA HE MD ORDERED: URINE CULTURE Procedure Result URINE CULTURE Preliminary Preliminary report URINE CULTURE RES 1 Preliminary Gram negative rods Greater than 100,000 colony forming units per mL Performed at: DA - [facility] [address] [facility] [address], [place], [place] [id number] Drum Maker: CESAR Thomas MD, Phone: [phone] Objective: Assessment: 1. Sepsis source Likely with Urinary tract infection.GNR ,ID pending Improved 2. Severe hyperglycemia. Improved 3. Lactic acidosis, multifactorial. 4. Renal failure. 5. Weight loss with right lung mass. 6. Hyponatremia. 7. Metabolic acidosis, improving. Plan: Plan of Care Continue empiric Zosyn, renal dosing. Urine culture gram-negative guard ID and TIFFANIE still pending per micro may be available this pm hold picc line d/w daughter at bedside . D/W Nursing staff MATEO RUVALCABA MD Oct 01, 2018 09:43
[2018-10-01] MEDS: LACTOBACILLUS RHAMNOSUS GG 1 CAPSULE. PO SCH (10:18)
[2018-10-01] MEDS: glyBURIDE 1.25 MG TABLET PO SCH (10:18)
[2018-10-01 11:00] VITALS: BP 112/63
--- NOTE | 2018-10-01 11:03 | PDOC ---
SUBJECTIVE ROS Stable OBJECTIVE Vital Signs Vital Signs Date Time Temp Pulse Resp B/P (MAP) Pulse Ox O2 Delivery O2 Flow Rate FiO2 10/01/18 07:00 98.6 90 16 124/64 (84) 95 Room Air 98.6 I & 0 Intake and Output 10/01/18 06:59 Intake Total 240 ml Output Total 1100 ml Balance -860 ml Intake Oral 240 ml Output Urine Total 1100 ml PHYSICAL EXAM Physical Exam Physical Exam GENERAL: no acute distress HEENT: Oral mucosa moist. NECK: Supple. JVD. LUNGS: Clear bilaterally. Non labored HEART: S1, S2 with no gallops or murmurs. ABDOMEN: Soft, nontender, nondistended. GENITOURINARY: Yun in place. NEUROLOGIC: Alert, awake, confused baseline SKIN : Warm, dry. No generalized rash Yun DIAGNOSIS/ASSESSMENT Assessment & Plan HANNA- Suspect due to Dehydration, Poor PO intake , UTI Non Oliguric, improving renal function Malfunction Yun on 09/29 Baseline unknown Urinary tract infection- On Abx per ID . Severe hyperglycemia- at presentation Glucose 1010 Primary managing Lactic acidosis, multifactorial. Weight loss with right lung mass Will Likely need Ct scan - Can be done without Contrast due to HANNA Hypernatremia - Higher when corrected for Glucose Encourage water intake Metabolic acidosis- Resolved COMMENT/RELEVANT DATA Meds Current Medications Medications (Trade) Dose Ordered Sig/Tiara Start Time Stop Time Status Last Admin Dose Admin Dextrose (Dextrose 50%-Water Syringe) 12.5 gm PRN Q15MIN PRN 09/27/18 09:15 Dronabinol (Marinol) 2.5 mg BIDACLD 09/29/18 11:30 09/30/18 16:43 2.5 MG Glyburide (Diabeta) 1.25 mg BIDWMEALS 09/27/18 11:30 10/01/18 10:18 1.25 MG Insulin Glargine (Lantus) 12 units QHS 09/27/18 21:00 09/30/18 22:00 12 UNITS Insulin Human Lispro (HumaLOG) 0-9 UNITS TIDWMEALS 09/27/18 12:00 09/30/18 13:02 7 UNITS Insulin Human Regular 150 ml @ 0 mls/hr 1X ONCE 09/26/18 17:30 09/26/18 17:31 DC 09/26/18 18:31 19 MLS/HR Insulin Human Regular (HumuLIN R VIAL) 10 unit 1X ONCE 09/26/18 17:30 09/26/18 17:31 DC 09/26/18 18:28 10 UNIT Insulin Human Regular 150 unit/ Sodium Chloride 151.5 ml @ 0 mls/hr CONT PRN PRN 09/26/18 21:15 09/27/18 15:56 DC Lactobacillus Rhamnosus (Culturelle) 1 cap BID 09/27/18 21:00 10/01/18 10:18 1 CAP Piperacillin Sod/ Tazobactam Sod 2.25 gm/Sodium Chloride 50 ml @ 100 mls/hr Q8HRS 09/27/18 06:00 10/01/18 06:39 100 MLS/HR Piperacillin Sod/ Tazobactam Sod 3.375 gm/Sodium Chloride 50 ml @ 100 mls/hr ONCE ONCE 09/26/18 17:45 09/26/18 18:14 DC 09/26/18 17:42 100 MLS/HR Potassium Chloride/Water 100 ml @ 100 mls/hr PRN Q1HR PRN 09/26/18 21:15 09/27/18 15:56 DC Sodium Chloride 1,000 ml @ 125 mls/hr 1X ONCE 09/27/18 04:15 09/27/18 12:14 DC 09/27/18 05:02 125 MLS/HR Vancomycin HCl 1.5 gm/Sodium Chloride 500 ml @ 250 mls/hr 1X ONCE 09/26/18 18:15 09/26/18 20:14 DC 09/26/18 18:49 250 MLS/HR Lab Laboratory Tests Test 09/30/18 11:51 09/30/18 12:20 09/30/18 16:32 09/30/18 20:53 Glucose (Fingerstick) 291 mg/dL (70-99) 246 mg/dL (70-99) 309 mg/dL (70-99) Sodium Level 146 mmol/L (136-145) Potassium Level 3.7 mmol/L (3.5-5.1) Chloride Level 111 mmol/L (98-107) Carbon Dioxide Level 22 mmol/L (21-32) Anion Gap 13 (6-14) Blood Urea Nitrogen 29 mg/dL (8-26) Creatinine 2.0 mg/dL (0.7-1.3) Estimated GFR (Cockcroft-Gault) 32.1 Glucose Level 352 mg/dL (70-99) Calcium Level 9.2 mg/dL (8.5-10.1) Test 10/01/18 07:41 Glucose (Fingerstick) 180 mg/dL (70-99) Results All relevant outside records, renal labs, imaging studies, telemetry/EKG's were reviewed. RITU STEPHENS MD Oct 01, 2018 11:03
[2018-10-01] MEDS: DRONABINOL 2.5 MG CAPSULE. PO SCH (12:19)
[2018-10-01 12:56] LABS: CREATININE 1.7 mg/dL (0.7-1.3); GFR 38.7; POTASSIUM 3.6 mmol/L (3.5-5.1)
--- NOTE | 2018-10-01 13:32 | PDOC ---
[employer] PROGRESS NOTE Chief Complaint Chief Complaint Sepsis POA with no organ dysfunction Status post DKA Hypertension, controlled AK I VMN CK D stage 4 Lung mass Renal failure UTI Dementia Diabetes mellitus 2 uncontrolled History of Present Illness History of Present Illness [id number] Patient seen and examined again His family is present We had to hold discharge yesterday because he needed a PICC line but the family doesn't want a PICC line Were hoping to redischarged today on by mouth Augmentin if the cultures show sensitivities to Augmentin [id number] Patient seen and examined He is slowly improving Discussed with case management and his family They requested something for appetite stimulation I called the pharmacy will not try Marinol Patient is going to care home in a.m. Vitals Vitals Vital Signs Date Time Temp Pulse Resp B/P (MAP) Pulse Ox O2 Delivery O2 Flow Rate FiO2 10/01/18 11:00 98.6 102 14 112/63 (79) 94 Room Air 98.6 Physical Exam Physical Exam GENERAL: Alert, awake, smiling male in no acute distress, lying comfortably in bed, pleasantly confused. HEENT: Normocephalic, atraumatic, anicteric. No thrush. Oral mucosa moist. NECK: Supple. JVD. LUNGS: Clear bilaterally. No wheezing. HEART: S1, S2 with no gallops or murmurs. ABDOMEN: Soft, nontender, nondistended. GENITOURINARY: Yun in place. NEUROLOGIC: Alert, awake, pleasantly confused baseline per daughter at bedside. PSYCHIATRIC: Normal affect. DERMATOLOGIC: Warm, dry. No generalized rash. General: Alert, Oriented X3, Cooperative, No acute distress Heart: Regular rate, Normal S1, Normal S2, No murmurs Lungs: Clear Abdomen: Normal bowel sounds, Soft, No tenderness Extremities: No clubbing, No cyanosis Skin: No rashes, No breakdown, No significant lesion Labs Labs: Laboratory Tests Test 09/30/18 16:32 09/30/18 20:53 10/01/18 07:41 10/01/18 11:25 Glucose (Fingerstick) 246 mg/dL (70-99) 309 mg/dL (70-99) 180 mg/dL (70-99) 240 mg/dL (70-99) Test 10/01/18 12:15 Sodium Level 143 mmol/L (136-145) Potassium Level 3.6 mmol/L (3.5-5.1) Chloride Level 108 mmol/L (98-107) Carbon Dioxide Level 25 mmol/L (21-32) Anion Gap 10 (6-14) Blood Urea Nitrogen 20 mg/dL (8-26) Creatinine 1.7 mg/dL (0.7-1.3) Estimated GFR (Cockcroft-Gault) 38.7 Glucose Level 297 mg/dL (70-99) Calcium Level 9.0 mg/dL (8.5-10.1) Assessment and Plan Assessmemt and Plan Problems Medical Problems: (1) Acute renal failure Status: Acute (2) DKA (diabetic ketoacidoses) Status: Acute (3) Hyperosmolar hyperglycemic coma due to diabetes mellitus without ketoacidosis Status: Acute (4) Hyponatremia Status: Acute (5) Lactic acidosis Status: Acute (6) Lung mass Status: Acute (7) Severe dehydration Status: Acute (8) Severe hyperglycemia due to diabetes mellitus Status: Acute (9) Severe sepsis Status: Acute (10) Toxic encephalopathy Status: Acute (11) Urinary tract infection Status: Acute Sepsis POA with no organ dysfunction Status post DKA Hypertension, controlled AK I VMN CK D stage 4 Lung mass Renal failure UTI Dementia Diabetes mellitus 2 uncontrolled Plan We are hoping to discharge to care home so on by mouth antibiotics For now he is on IV Zosyn PT OT Labs Home meds DVT prophylaxis He is DNR Comment Review of Relevant I have reviewed the following items ranjith (where applicable) has been applied. Labs Laboratory Tests Test 09/29/18 16:41 09/29/18 21:03 09/30/18 07:21 09/30/18 11:51 Glucose (Fingerstick) 217 mg/dL (70-99) 295 mg/dL (70-99) 143 mg/dL (70-99) 291 mg/dL (70-99) Test 09/30/18 12:20 09/30/18 16:32 09/30/18 20:53 10/01/18 07:41 Sodium Level 146 mmol/L (136-145) Potassium Level 3.7 mmol/L (3.5-5.1) Chloride Level 111 mmol/L (98-107) Carbon Dioxide Level 22 mmol/L (21-32) Anion Gap 13 (6-14) Blood Urea Nitrogen 29 mg/dL (8-26) Creatinine 2.0 mg/dL (0.7-1.3) Estimated GFR (Cockcroft-Gault) 32.1 Glucose Level 352 mg/dL (70-99) Calcium Level 9.2 mg/dL (8.5-10.1) Glucose (Fingerstick) 246 mg/dL (70-99) 309 mg/dL (70-99) 180 mg/dL (70-99) Test 10/01/18 11:25 10/01/18 12:15 Glucose (Fingerstick) 240 mg/dL (70-99) Sodium Level 143 mmol/L (136-145) Potassium Level 3.6 mmol/L (3.5-5.1) Chloride Level 108 mmol/L (98-107) Carbon Dioxide Level 25 mmol/L (21-32) Anion Gap 10 (6-14) Blood Urea Nitrogen 20 mg/dL (8-26) Creatinine 1.7 mg/dL (0.7-1.3) Estimated GFR (Cockcroft-Gault) 38.7 Glucose Level 297 mg/dL (70-99) Calcium Level 9.0 mg/dL (8.5-10.1) Laboratory Tests Test 09/30/18 16:32 09/30/18 20:53 10/01/18 07:41 10/01/18 11:25 Glucose (Fingerstick) 246 mg/dL (70-99) 309 mg/dL (70-99) 180 mg/dL (70-99) 240 mg/dL (70-99) Test 10/01/18 12:15 Sodium Level 143 mmol/L (136-145) Potassium Level 3.6 mmol/L (3.5-5.1) Chloride Level 108 mmol/L (98-107) Carbon Dioxide Level 25 mmol/L (21-32) Anion Gap 10 (6-14) Blood Urea Nitrogen 20 mg/dL (8-26) Creatinine 1.7 mg/dL (0.7-1.3) Estimated GFR (Cockcroft-Gault) 38.7 Glucose Level 297 mg/dL (70-99) Calcium Level 9.0 mg/dL (8.5-10.1) Microbiology 09/26/18 Blood Culture - Preliminary, Resulted NO GROWTH AFTER 4 DAYS 09/26/18 Urine Culture - Final, Complete 09/26/18 Urine Culture Result 1 (TIFFANIE) - Final, Complete 09/26/18 Antimicrobic Susceptibility - Final, Complete Medications Current Medications Sodium Chloride 1,000 ml @ 1,000 mls/hr Q1H IV Last administered on 09/26/18at 16:21; Start 09/26/18 at 17:00; Stop 09/26/18 at 17:59; Status DC Sodium Chloride 1,000 ml @ 1,000 mls/hr 1X ONCE IV Last administered on 09/26/18at 17:41; Start 09/26/18 at 17:00; Stop 09/26/18 at 17:59; Status DC Insulin Human Regular (HumuLIN R VIAL) 10 unit 1X ONCE IV Last administered on 09/26/18at 18:28; Start 09/26/18 at 17:30; Stop 09/26/18 at 17:31; Status DC Insulin Human Regular 150 ml @ 0 mls/hr 1X ONCE IV Last administered on 09/26/18at 18:31; Start 09/26/18 at 17:30; Stop 09/26/18 at 17:31; Status DC Piperacillin Sod/ Tazobactam Sod 3.375 gm/Sodium Chloride 50 ml @ 100 mls/hr Q6HRS IV ; Start 09/26/18 at 18:00; Status UNV Vancomycin HCl 250 ml @ 250 mls/hr 1X ONCE IV ; Start 09/26/18 at 17:45; Stop 09/26/18 at 18:44; Status UNV Piperacillin Sod/ Tazobactam Sod 3.375 gm/Sodium Chloride 50 ml @ 100 mls/hr ONCE ONCE IV Last administered on 09/26/18at 17:42; Start 09/26/18 at 17:45; Stop 09/26/18 at 18:14; Status DC Vancomycin HCl 1.5 gm/Sodium Chloride 500 ml @ 250 mls/hr 1X ONCE IV Last administered on 09/26/18at 18:49; Start 09/26/18 at 18:15; Stop 09/26/18 at 20:14; Status DC Sodium Chloride 1,000 ml @ 150 mls/hr Q6H40M IV Last administered on 09/26/18at 18:59; Start 09/26/18 at 17:44; Stop 09/27/18 at 17:43; Status DC Piperacillin Sod/ Tazobactam Sod 2.25 gm/Sodium Chloride 50 ml @ 100 mls/hr Q8HRS IV Last administered on 10/01/18at 06:39; Start 09/27/18 at 06:00 Sodium Chloride 1,000 ml @ 500 mls/hr Q2H IV Last administered on 09/26/18at 22:07; Start 09/26/18 at 21:15; Stop 09/26/18 at 21:40; Status DC Insulin Human Regular 150 unit/ Sodium Chloride 151.5 ml @ 0 mls/hr CONT PRN PRN IV PER PROTOCOL; Start 09/26/18 at 21:15; Stop 09/27/18 at 15:56; Status DC Potassium Chloride/Water 100 ml @ 100 mls/hr PRN Q1HR PRN IV SEE COMMENTS; Start 09/26/18 at 21:15; Stop 09/27/18 at 15:56; Status DC Potassium Chloride/Water 100 ml @ 100 mls/hr PRN Q1HR PRN IV SEE COMMENTS; Start 09/26/18 at 21:15; Stop 09/27/18 at 15:56; Status DC Potassium Chloride/Water 100 ml @ 100 mls/hr PRN Q1HR PRN IV SEE COMMENTS; Start 09/26/18 at 21:15; Stop 09/27/18 at 15:56; Status DC Dextrose (Dextrose 50%-Water Syringe) 25 gm CONT PRN PRN IV PER PROTOCOL Last administered on 09/27/18at 02:35; Start 09/27/18 at 02:30; Stop 09/27/18 at 0 5:32; Status DC Sodium Chloride 1,000 ml @ 125 mls/hr 1X ONCE IV Last administered on 09/27/18at 05:02; Start 09/27/18 at 04:15; Stop 09/27/18 at 12:14; Status DC Insulin Human Lispro (HumaLOG) 0-5 UNITS TIDWMEALS SQ Last administered on 09/27/18at 08:54; Start 09/27/18 at 08:00; Stop 09/27/18 at 09:14; Status DC Dextrose (Dextrose 50%-Water Syringe) 12.5 gm PRN Q15MIN PRN IV SEE COMMENTS; Start 09/27/18 at 05:30; Stop 09/27/18 at 09:26; Status DC Lactobacillus Rhamnosus (Culturelle) 1 cap BID PO Last administered on 10/01/18at 10:18; Start 09/27/18 at 21:00 Insulin Human Lispro (HumaLOG) 0-9 UNITS TIDWMEALS SQ Last administered on 10/01/18at 12:25; Start 09/27/18 at 12:00 Dextrose (Dextrose 50%-Water Syringe) 12.5 gm PRN Q15MIN PRN IV SEE COMMENTS; Start 09/27/18 at 09:15 Glyburide (Diabeta) 1.25 mg BIDWMEALS PO Last administered on 10/01/18at 10:18; Start 09/27/18 at 11:30 Insulin Glargine (Lantus) 12 units QHS SQ Last administered on 09/30/18at 22:00; Start 09/27/18 at 21:00 Dronabinol (Marinol) 2.5 mg BIDACLD PO Last administered on 10/01/18at 12:19; Start 09/29/18 at 11:30 Active Scripts Active Reported Lisinopril 40 Mg Tablet 1 Tab PO DAILY Vitals/I & O Vital Sign - Last 24 Hours 09/30/18 09/30/18 09/30/18 09/30/18 14:54 19:00 20:00 23:00 Temp 98.1 98.6 98.1 98.1 98.6 98.1 Pulse 104 99 93 Resp 18 18 18 B/P (MAP) 96/54 (68) 102/59 (73) 144/72 (96) Pulse Ox 94 97 95 O2 Delivery Room Air Room Air Room Air Room Air 10/01/18 10/01/18 10/01/18 10/01/18 03:00 07:00 07:45 11:00 Temp 98.0 98.6 98.6 98.0 98.6 98.6 Pulse 90 90 102 Resp 18 16 14 B/P (MAP) 113/66 (82) 124/64 (84) 112/63 (79) Pulse Ox 97 95 94 O2 Delivery Room Air Room Air Room Air Room Air Intake and Output 09/30/18 09/30/18 10/01/18 15:00 23:00 07:00 Intake Total 240 ml Output Total 1100 ml Balance -860 ml CASTLE,NIAL K III DO Oct 01, 2018 13:32
[2018-10-01] MEDS ORDERED: DRON2.5C PO (13:52)
[2018-10-01] MEDS ORDERED: GLYB2.5T2 PO (13:54)
[2018-10-01] MEDS ORDERED: INSU100C SQ (13:58)
[2018-10-01] MEDS ORDERED: INSU100V8 SQ (13:58)
[2018-10-01] MEDS ORDERED: AMOX1TAB61 PO (13:59)
--- NOTE | 2018-10-01 14:00 | NUR ---
SW following pt. Pt will not PICC line and can dc with PO abx. SW arranged transportation via central transport at 1445. RN notified.
--- NOTE | 2018-10-01 14:16 | PDOC ---
SUBJECTIVE ROS Stable OBJECTIVE Vital Signs Vital Signs Date Time Temp Pulse Resp B/P (MAP) Pulse Ox O2 Delivery O2 Flow Rate FiO2 10/01/18 11:00 98.6 102 14 112/63 (79) 94 Room Air 98.6 I & 0 Intake and Output 10/01/18 06:59 Intake Total 240 ml Output Total 1100 ml Balance -860 ml Intake Oral 240 ml Output Urine Total 1100 ml PHYSICAL EXAM Physical Exam GENERAL: no acute distress HEENT: Oral mucosa moist. NECK: Supple. JVD. LUNGS: Clear bilaterally. Non labored HEART: S1, S2 with no gallops or murmurs. ABDOMEN: Soft, nontender, nondistended. GENITOURINARY: Yun in place. NEUROLOGIC: Alert, awake, confused baseline SKIN : Warm, dry. No generalized rash Yun DIAGNOSIS/ASSESSMENT Assessment & Plan HANNA- Suspect due to Dehydration, Poor PO intake , UTI Non Oliguric, improving renal function Malfunction Yun on 09/29 Baseline unknown Urinary tract infection- On Abx per ID . Severe hyperglycemia- at presentation Glucose 1010 Primary managing Lactic acidosis, multifactorial. Weight loss with right lung mass Will Likely need Ct scan - Can be done without Contrast due to HANNA Hypernatremia - Higher when corrected for Glucose Encourage water intake Metabolic acidosis- Resolved COMMENT/RELEVANT DATA Meds Current Medications Medications (Trade) Dose Ordered Sig/Tiara Start Time Stop Time Status Last Admin Dose Admin Dextrose (Dextrose 50%-Water Syringe) 12.5 gm PRN Q15MIN PRN 09/27/18 09:15 Dronabinol (Marinol) 2.5 mg BIDACLD 09/29/18 11:30 10/01/18 12:19 2.5 MG Glyburide (Diabeta) 1.25 mg BIDWMEALS 09/27/18 11:30 10/01/18 10:18 1.25 MG Insulin Glargine (Lantus) 12 units QHS 09/27/18 21:00 09/30/18 22:00 12 UNITS Insulin Human Lispro (HumaLOG) 0-9 UNITS TIDWMEALS 09/27/18 12:00 10/01/18 12:25 5 UNITS Insulin Human Regular 150 ml @ 0 mls/hr 1X ONCE 09/26/18 17:30 09/26/18 17:31 DC 09/26/18 18:31 19 MLS/HR Insulin Human Regular (HumuLIN R VIAL) 10 unit 1X ONCE 09/26/18 17:30 09/26/18 17:31 DC 09/26/18 18:28 10 UNIT Insulin Human Regular 150 unit/ Sodium Chloride 151.5 ml @ 0 mls/hr CONT PRN PRN 09/26/18 21:15 09/27/18 15:56 DC Lactobacillus Rhamnosus (Culturelle) 1 cap BID 09/27/18 21:00 10/01/18 10:18 1 CAP Piperacillin Sod/ Tazobactam Sod 2.25 gm/Sodium Chloride 50 ml @ 100 mls/hr Q8HRS 09/27/18 06:00 10/01/18 14:00 100 MLS/HR Piperacillin Sod/ Tazobactam Sod 3.375 gm/Sodium Chloride 50 ml @ 100 mls/hr ONCE ONCE 09/26/18 17:45 09/26/18 18:14 DC 09/26/18 17:42 100 MLS/HR Potassium Chloride/Water 100 ml @ 100 mls/hr PRN Q1HR PRN 09/26/18 21:15 09/27/18 15:56 DC Sodium Chloride 1,000 ml @ 125 mls/hr 1X ONCE 09/27/18 04:15 09/27/18 12:14 DC 09/27/18 05:02 125 MLS/HR Vancomycin HCl 1.5 gm/Sodium Chloride 500 ml @ 250 mls/hr 1X ONCE 09/26/18 18:15 09/26/18 20:14 DC 09/26/18 18:49 250 MLS/HR Lab Laboratory Tests Test 09/30/18 16:32 09/30/18 20:53 10/01/18 07:41 10/01/18 11:25 Glucose (Fingerstick) 246 mg/dL (70-99) 309 mg/dL (70-99) 180 mg/dL (70-99) 240 mg/dL (70-99) Test 10/01/18 12:15 Sodium Level 143 mmol/L (136-145) Potassium Level 3.6 mmol/L (3.5-5.1) Chloride Level 108 mmol/L (98-107) Carbon Dioxide Level 25 mmol/L (21-32) Anion Gap 10 (6-14) Blood Urea Nitrogen 20 mg/dL (8-26) Creatinine 1.7 mg/dL (0.7-1.3) Estimated GFR (Cockcroft-Gault) 38.7 Glucose Level 297 mg/dL (70-99) Calcium Level 9.0 mg/dL (8.5-10.1) Results All relevant outside records, renal labs, imaging studies, telemetry/EKG's were reviewed. RITU STEPHENS MD Oct 01, 2018 14:16
--- NOTE | 2018-10-01 15:20 | NUR ---
Discharge Note: Patient was discharged to [facility]. Patient alert to self per baseline, daughter agreeable with discharge plans. Patients IV was discontinued without any complications. Patient was transferred via wheelchair van. Patient had no personal belongings. Called [facility] and gave report over phone to ALDEN Adkins.
== END 2018-10-01 15:15 | DRG 871 ==
LOC: ER 15:42 → 6 SOUTH 16:28 → 1 WEST ICU 17:33 → 5 NORTH 09-27 15:08
PROVIDERS: ADMIT Internal Medicine; ATTEND Internal Medicine
DX: A41.9 Sepsis, unspecified organism (principal); G92 Toxic encephalopathy; N17.0 Acute kidney failure with tubular necrosis; E11.11 Type 2 diabetes mellitus with ketoacidosis with coma; N39.0 Urinary tract infection, site not specified; N18.4 Chronic kidney disease, stage 4 (severe); E87.0 Hyperosmolality and hypernatremia; E11.22 Type 2 diabetes mellitus with diabetic chronic kidney disease; E11.65 Type 2 diabetes mellitus with hyperglycemia; I12.9 Hypertensive chronic kidney disease with stage 1 through stage 4 chronic kidney disease, or unspecified chronic kidney disease; E86.0 Dehydration; R65.20 Severe sepsis without septic shock; F03.90 Unspecified dementia, unspecified severity, without behavioral disturbance, psychotic disturbance, mood disturbance, and anxiety; R91.8 Other nonspecific abnormal finding of lung field; Z66 Do not resuscitate; I25.10 Atherosclerotic heart disease of native coronary artery without angina pectoris; Z83.3 Family history of diabetes mellitus; Z87.891 Personal history of nicotine dependence
CPT/HCPCS: 36415; 36600; 70450; 71045; 71250; 76770; 80048; 80053; 80076; 81001; 82140; 82805; 82947; 82962; 83036; 83605; 83690; 83735; 84100; 84484; 85025; 85610; 85651; 87040; 87086; 87186; 87641; 93005; 96361; 96365; 96368; 96375; 99292; J1815; J2543; J3370; J7030; J7040; J7042; Q0167; 97530; 97535; 99291-25

== ENCOUNTER → 2019-01-07 | Outpatient (CLI) | payer BC ==
[~2019-01-07] MED LIST: AMOX1TAB61 PO; DRON2.5C PO; GLYB2.5T2 PO; INSU100C SQ; INSU100V8 SQ; LISI-130 PO
--- NOTE | 2019-01-07 17:53 | KCIC ---
CT CHEST WO CONTRAST Indication: Right lung mass Technique: Noncontrast CT imaging was performed of the chest, multiplanar reconstruction images submitted. One or more of the following individualized dose reduction techniques were utilized for this examination: 1. Automated exposure control 2. Adjustment of the mA and/or kV according to patient size 3. Use of iterative reconstruction technique. Comparison: September 27, 2018 Findings: There is again circumscribed mass of the lateral right hemithorax along the minor fissure protruding into the right middle and right upper lobes and abutting the peripheral pleural surface. This measures about 3.3 cm transverse by 3.5 cm AP by 2.6 cm CC. Overall size and morphology are unchanged. Overall internal density measurements again suggests of fatty component, measuring less than 0 Hounsfield units. No new chest mass is identified. Thoracic aortic caliber is stable. There is again coronary calcification. No new significantly enlarged nodes are identified of the chest. There is again lobulated contour of the kidneys. 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 There is emphysema. IMPRESSION: 1. 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 There are no older exams to evaluate for long-term stability. Continued surveillance to assess stability such as in 6 months is advised assuming there is not to be biopsy or PET/CT. 2. There is coronary calcification. There is emphysema. Electronically signed by: Ruben Lee MD (01/07/2019 5:50 PM) [id number]
== END | disposition home or self-care (01) ==
LOC: KCIC CT 11:52
PROVIDERS: ATTEND Internal Medicine Pulmonary Disease
DX: J43.8 Other emphysema (principal); M50.30 Other cervical disc degeneration, unspecified cervical region; M47.892 Other spondylosis, cervical region; R91.8 Other nonspecific abnormal finding of lung field; I25.10 Atherosclerotic heart disease of native coronary artery without angina pectoris
CPT/HCPCS: 71250